=== PATIENT | male | born 1990 | race Caucasian/White ===

== ENCOUNTER 2018-07-30 18:53 | Inpatient (IN) | payer MEDICAID ==
[~2018-07-30] VITALS: Ht 170.2 cm; Wt 79.2 kg
[2018-07-30] MEDS ORDERED: ONDANSETRON 2MG/ML, 2ML ONE (19:15)
[2018-07-30] MEDS ORDERED: MORPHINE SULFATE 4 MG/ML, 1ML ONE (19:15)
[2018-07-30] MEDS ORDERED: MORPHINE SULFATE 4 MG/ML, 1ML IVPush PRN (19:30)
[2018-07-30] MEDS ORDERED: ONDANSETRON 2MG/ML, 2ML IVPush ONE (19:30)
[2018-07-30] MEDS ORDERED: PLEASE ENTER HEIGHT AND WEIGHT MC SCH (19:30)
[2018-07-30] MEDS ORDERED: SODIUM CHLORIDE FLUSH 10ML SYR IVF ONE (19:30)
[2018-07-30 19:32] LABS: BASOPHILS # (AUTO) 0.04 x10^3/uL (0-0.1); BASOPHILS % (AUTO) 0 % (0-1); EOSINOPHILS % (AUTO) 3 % (1-7); LYMPHOCYTES # (AUTO) 1.25 x10^3/uL (1-3.4); LYMPHOCYTES % (AUTO) 13 % (22-44); MD NO; MEAN CORPUSCULAR HEMOGLOBIN 30.8 pg (27.5-34.5); MEAN CORPUSCULAR HGB CONC 33.7 g/dL (33.2-36.2); MEAN CORPUSCULAR VOLUME 91.4 fL (81-97); MEAN PLATELET VOLUME 8.6 fL (7.4-10.4); MONOCYTES # (AUTO) 0.46 x10^3/uL (0.2-0.8); MONOCYTES % (AUTO) 5 % (2-9); NEUTROPHILS # (AUTO) 7.49 x10^3/uL (1.8-6.8); NEUTROPHILS % (AUTO) 79 % (42-75); PLATELET COUNT 336 x10^3/uL (130-400); RED BLOOD COUNT 4.09 x10^6/uL (4.38-5.82)
[2018-07-30] MEDS ORDERED: LOMOTIL (19:32)
[2018-07-30] MEDS ORDERED: DAPTOMYCIN (19:32)
[2018-07-30] MEDS ORDERED: COUMADIN (19:32)
[2018-07-30] MEDS ORDERED: GABAPENTIN (19:32)
[2018-07-30 19:44] LABS: ALBUMIN 3.5 g/dL (3.4-5.0); ANION GAP 12 mmol/L (5-15); CALCIUM 9.1 mg/dL (8.5-10.1); CHLORIDE 103 mmol/L (98-107)
[2018-07-30 19:47] LABS: ALANINE AMINOTRANSFERASE 114 U/L (12-78); ALKALINE PHOSPHATASE 375 U/L (45-117); BILIRUBIN,TOTAL 0.5 mg/dL (0.2-1.0); CREATININE 1.99 mg/dL (0.7-1.3); TOTAL PROTEIN 9.1 g/dL (6.4-8.2)
[2018-07-30] MEDS ORDERED: VANCOMYCIN PER PHARMACY MC PRN ×2 (22:00→23:30)
[2018-07-30] MEDS ORDERED: CEFAZOLIN PMX 1GM/50ML 50 ML IV ONE (22:00)
[2018-07-30] MEDS ORDERED: VANCOMYCIN 1,200 MG in SODIUM CHLORIDE 0.9% 250 ML IV ONE (22:30)
[2018-07-30] MEDS ORDERED: ONDANSETRON 2MG/ML, 2ML IVPush PRN (23:30)
[2018-07-30] MEDS ORDERED: KETOROLAC 30 MG/1 ML IV PRN (23:30)
[2018-07-30] MEDS ORDERED: hydrALAzine 20 MG/ML, 1ML IVPush PRN (23:30)
[2018-07-30] MEDS ORDERED: PHARMACY MAY ADJ FOR RENAL FX MC PRN (23:30)
[2018-07-30 23:36] VITALS: BP 103/71
[2018-07-31] MEDS: ONDANSETRON 2MG/ML, 2ML IVPush PRN ×2 (00:25→09:25)
[2018-07-31] MEDS: ENOXAPARIN 40 MG/0.4 ML SQ SCH (00:25)
[2018-07-31] MEDS ORDERED: CEFAZOLIN PMX 1GM/50ML 50 ML IV SCH ×2 (01:30→10:00)
[2018-07-31 01:34] VITALS: BP 98/65
[2018-07-31] MEDS: morphine SULFATE 10 MG/ML, 1ML IVPush PRN ×4 (02:13→14:39)
[2018-07-31] MEDS ORDERED: PHARMACOKINETIC MONITORING MC PRN (04:30)
[2018-07-31] MEDS ORDERED: PHARMACOKINETIC CONSULTATION MC ONE (04:30)
[2018-07-31] MEDS ORDERED: MORPHINE SULFATE 4 MG/ML, 1ML ONE (05:17)
[2018-07-31 06:11] LABS: MICROSCOPIC AUTO
[2018-07-31 06:16] LABS: CULTURE INDICATED? NO
[2018-07-31 08:54] LABS: BASOPHILS # (AUTO) 0.02 x10^3/uL (0-0.1); BASOPHILS % (AUTO) 0 % (0-1); EOSINOPHILS # (AUTO) 0.67 x10^3/uL (0-0.4); EOSINOPHILS % (AUTO) 9 % (1-7); LYMPHOCYTES # (AUTO) 1.38 x10^3/uL (1-3.4); LYMPHOCYTES % (AUTO) 19 % (22-44); MD NO; MEAN CORPUSCULAR HGB CONC 33.8 g/dL (33.2-36.2); MEAN CORPUSCULAR VOLUME 91.5 fL (81-97); MEAN PLATELET VOLUME 8.6 fL (7.4-10.4); MONOCYTES # (AUTO) 0.48 x10^3/uL (0.2-0.8); MONOCYTES % (AUTO) 6 % (2-9); NEUTROPHILS # (AUTO) 4.92 x10^3/uL (1.8-6.8); NEUTROPHILS % (AUTO) 66 % (42-75); PLATELET COUNT 295 x10^3/uL (130-400); RED BLOOD COUNT 3.89 x10^6/uL (4.38-5.82); RED CELL DISTRIBUTION WIDTH 15.2 % (9.4-14.8)
[2018-07-31 08:59] LABS: ANION GAP 10 mmol/L (5-15); CALCIUM 8.5 mg/dL (8.5-10.1); CHLORIDE 104 mmol/L (98-107); CREATININE 2.03 mg/dL (0.7-1.3)
[2018-07-31 09:23] VITALS: BP 101/68
[2018-07-31] MEDS: CEFTRIAXONE PMX 1GM/50ML 50 ML IV SCH (11:32)
[2018-07-31 14:10] VITALS: BP 104/69
[2018-07-31] MEDS ORDERED: VANCOMYCIN 1,400 MG in SODIUM CHLORIDE 0.9% 250 ML IV SCH (15:00)
[2018-07-31] MEDS ORDERED: AMIT50TA PO (15:07)
[2018-07-31] MEDS ORDERED: ARIP10TA33 PO (15:11)
[2018-07-31] MEDS ORDERED: BUSP5TAB2 PO (15:12)
[2018-07-31] MEDS ORDERED: CHOL4PAC2 PO (15:14)
[2018-07-31] MEDS ORDERED: DIPH1TAB6 PO (15:15)
[2018-07-31] MEDS ORDERED: FLUO40CA2 PO (15:16)
[2018-07-31] MEDS ORDERED: GABA-827 PO (15:17)
[2018-07-31] MEDS ORDERED: TRAZ50TA66 PO (15:19)
[2018-07-31] MEDS ORDERED: ERGO500017 PO (15:20)
[2018-07-31] MEDS ORDERED: WARF6TAB PO (15:21)
[2018-07-31] MEDS ORDERED: TPN PER PHARMACY MC PRN (16:00)
[2018-07-31] MEDS ORDERED: ERGOCALCIFEROL 50,000 UNIT CAPSULE PO SCH (16:00)
[2018-07-31 17:10] LABS: INTERNATIONAL NORMALIZED RATIO 1.06 (0.93-1.1); PROTHROMBIN TIME 11.2 Seconds (9.6-11.5)
[2018-07-31] MEDS: BUSPIRONE 5 MG TABLET PO SCH ×2 (17:43→22:02)
[2018-07-31] MEDS: GABAPENTIN 400 MG CAPSULE PO SCH ×2 (17:44→22:02)
[2018-07-31] MEDS: DIPHENOXYLATE/ATROPINE TABLET PO SCH ×2 (17:44→22:03)
[2018-07-31] MEDS: WARFARIN 3 MG TABLET PO-COUM SCH (17:45)
[2018-07-31 19:16] VITALS: BP 94/60
[2018-07-31] MEDS: INSULIN LISPRO 100 UNITS/ML, PEN SQ-INSULIN SCH (21:00)
[2018-07-31] MEDS: TRAZODONE 50MG TABLET PO SCH (22:02)
[2018-07-31] MEDS: AMITRIPTYLINE 50 MG TABLET PO SCH (22:02)
[2018-07-31] MEDS: CHOLESTYRAMINE LIGHT 4GM PACKET PO SCH (22:03)
[2018-07-31 22:48] VITALS: BP 99/66
[2018-08-01 01:38] VITALS: BP 102/69
[2018-08-01] MEDS ORDERED: SODIUM CHLORIDE 0.9% 1,000 ML IV ONE (02:30)
[2018-08-01 05:28] LABS: INTERNATIONAL NORMALIZED RATIO 1.09 (0.93-1.1); PROTHROMBIN TIME 11.5 Seconds (9.6-11.5)
[2018-08-01 05:30] LABS: ALBUMIN 3.4 g/dL (3.4-5.0); ANION GAP 7 mmol/L (5-15); CALCIUM 8.9 mg/dL (8.5-10.1); CHLORIDE 108 mmol/L (98-107)
[2018-08-01 05:33] LABS: BASOPHILS # (AUTO) 0.03 x10^3/uL (0-0.1); BASOPHILS % (AUTO) 1 % (0-1); EOSINOPHILS # (AUTO) 0.67 x10^3/uL (0-0.4); EOSINOPHILS % (AUTO) 11 % (1-7); LYMPHOCYTES # (AUTO) 1.24 x10^3/uL (1-3.4); LYMPHOCYTES % (AUTO) 20 % (22-44); MD NO; MEAN CORPUSCULAR HEMOGLOBIN 31.2 pg (27.5-34.5); MEAN CORPUSCULAR HGB CONC 34.2 g/dL (33.2-36.2); MEAN CORPUSCULAR VOLUME 91.3 fL (81-97); MEAN PLATELET VOLUME 8.8 fL (7.4-10.4); MONOCYTES # (AUTO) 0.33 x10^3/uL (0.2-0.8); MONOCYTES % (AUTO) 5 % (2-9); NEUTROPHILS # (AUTO) 3.86 x10^3/uL (1.8-6.8); NEUTROPHILS % (AUTO) 63 % (42-75); PLATELET COUNT 290 x10^3/uL (130-400); RED BLOOD COUNT 3.91 x10^6/uL (4.38-5.82); RED CELL DISTRIBUTION WIDTH 15.4 % (9.4-14.8)
[2018-08-01 05:36] LABS: ALANINE AMINOTRANSFERASE 177 U/L (12-78); ALKALINE PHOSPHATASE 361 U/L (45-117); BILIRUBIN,TOTAL 0.7 mg/dL (0.2-1.0); PREALBUMIN 42.6 mg/dL (20.0-40.0); TOTAL PROTEIN 8.2 g/dL (6.4-8.2); TRIGLYCERIDES 241 mg/dL (50-200)
[2018-08-01] MEDS: INSULIN LISPRO 100 UNITS/ML, PEN SQ-INSULIN SCH ×4 (07:00→21:00)
[2018-08-01 07:09] VITALS: BP 103/65
[2018-08-01] MEDS: ENOXAPARIN 40 MG/0.4 ML SQ SCH (08:00)
[2018-08-01] MEDS: ARIPIPRAZOLE 10 MG TABLET PO SCH (09:24)
[2018-08-01] MEDS: FLUOXETINE HCL 20 MG CAPSULE PO SCH (09:24)
[2018-08-01] MEDS: DIPHENOXYLATE/ATROPINE TABLET PO SCH ×3 (09:24→20:08)
[2018-08-01] MEDS: GABAPENTIN 400 MG CAPSULE PO SCH ×3 (09:24→20:08)
[2018-08-01] MEDS: BUSPIRONE 5 MG TABLET PO SCH ×3 (09:24→20:08)
[2018-08-01] MEDS: CHOLESTYRAMINE LIGHT 4GM PACKET PO SCH ×2 (09:25→20:08)
[2018-08-01] MEDS: CEFTRIAXONE PMX 1GM/50ML 50 ML IV SCH (09:25)
[2018-08-01] MEDS ORDERED: DEXTROSE 5% 1,000 ML IV SCH ×2 (11:30→17:00)
[2018-08-01 14:07] VITALS: BP 100/68
[2018-08-01] MEDS: MORPHINE SULFATE 4 MG/ML, 1ML IVPush PRN ×2 (16:03→20:08)
[2018-08-01] MEDS ORDERED: DEXTROSE 10% 500 ML IV PRN (17:00)
[2018-08-01] MEDS ORDERED: SMOF TPN IV SCH (17:00)
[2018-08-01] MEDS ORDERED: DEXTROSE 50%, 50ML SYRINGE IVPush PRN (17:00)
[2018-08-01] MEDS ORDERED: [UNRECOGNIZED DRUG - OTHER] IV SCH (17:00)
[2018-08-01] MEDS ORDERED: FAT EMUL IV SCH (17:00)
[2018-08-01] MEDS ORDERED: FILTER, DISP 1.2 MICRON FOR TPN/PVN IV PRN (17:00)
[2018-08-01] MEDS ORDERED: DEXTROSE 70% IV SCH (17:00)
[2018-08-01] MEDS ORDERED: AMINO ACID 10% IV SCH (17:00)
[2018-08-01] MEDS: WARFARIN 3 MG TABLET PO-COUM SCH (17:38)
[2018-08-01 19:56] VITALS: BP 97/63
[2018-08-01] MEDS: AMITRIPTYLINE 50 MG TABLET PO SCH (20:08)
[2018-08-01] MEDS: TRAZODONE 50MG TABLET PO SCH (20:08)
[2018-08-01] MEDS: INSULIN REGULAR MEDIUM DOSE Q6H X 48HRS SQ-INSULIN SCH (21:00)
[2018-08-02 01:08] VITALS: BP 105/71
[2018-08-02] MEDS: INSULIN REGULAR MEDIUM DOSE Q6H X 48HRS SQ-INSULIN SCH ×2 (03:00→08:33)
[2018-08-02] MEDS: MORPHINE SULFATE 4 MG/ML, 1ML IVPush PRN ×2 (03:23→08:34)
[2018-08-02 05:30] LABS: INTERNATIONAL NORMALIZED RATIO 1.29 (0.93-1.1); PROTHROMBIN TIME 13.5 Seconds (9.6-11.5)
[2018-08-02 05:35] LABS: CHLORIDE 105 mmol/L (98-107); CREATININE 1.79 mg/dL (0.7-1.3)
[2018-08-02 05:38] LABS: CALCIUM 8.4 mg/dL (8.5-10.1)
[2018-08-02 06:18] LABS: ANION GAP 13 mmol/L (5-15)
[2018-08-02 06:47] VITALS: BP 111/75
[2018-08-02] MEDS: INSULIN LISPRO 100 UNITS/ML, PEN SQ-INSULIN SCH (07:00)
[2018-08-02] MEDS: ENOXAPARIN 40 MG/0.4 ML SQ SCH (08:00)
[2018-08-02] MEDS: BUSPIRONE 5 MG TABLET PO SCH (08:34)
[2018-08-02] MEDS: CHOLESTYRAMINE LIGHT 4GM PACKET PO SCH (08:34)
[2018-08-02] MEDS: FLUOXETINE HCL 20 MG CAPSULE PO SCH (08:35)
[2018-08-02] MEDS: DIPHENOXYLATE/ATROPINE TABLET PO SCH (08:35)
[2018-08-02] MEDS: GABAPENTIN 400 MG CAPSULE PO SCH (08:35)
[2018-08-02] MEDS: ARIPIPRAZOLE 10 MG TABLET PO SCH (08:35)
[2018-08-02] MEDS: CEFTRIAXONE PMX 1GM/50ML 50 ML IV SCH (09:30)
[2018-08-02] MEDS ORDERED: AMINO ACID 10% IV SCH (17:00)
[2018-08-02] MEDS ORDERED: [UNRECOGNIZED DRUG - OTHER] IV SCH (17:00)
[2018-08-02] MEDS ORDERED: FAT EMUL IV SCH (17:00)
[2018-08-02] MEDS ORDERED: DEXTROSE 70% IV SCH (17:00)
[2018-08-02] MEDS ORDERED: SMOF TPN IV SCH (17:00)
[2018-08-02] MEDS ORDERED: FILTER, DISP 1.2 MICRON FOR TPN/PVN IV PRN (17:00)
[2018-08-04] MEDS ORDERED: INSULIN REGULAR MEDIUM DOSE QDAY SQ-INSULIN SCH (09:00)
== END 2018-08-02 12:00 | disposition home or self-care (01) | DRG 393 ==
LOC: ED 22:14 → EDIP 22:27 → 3NE 22:56
PROVIDERS: ADMIT Internal Medicine; ATTEND Internal Medicine
DX: K94.03 Colostomy malfunction (principal); N17.0 Acute kidney failure with tubular necrosis; E43 Unspecified severe protein-calorie malnutrition; K63.2 Fistula of intestine; C41.9 Malignant neoplasm of bone and articular cartilage, unspecified; L03.311 Cellulitis of abdominal wall; L89.91 Pressure ulcer of unspecified site, stage 1; N18.3 Chronic kidney disease, stage 3 (moderate); Z83.3 Family history of diabetes mellitus; Z91.19 Patient's noncompliance with other medical treatment and regimen; Z85.830 Personal history of malignant neoplasm of bone; Z68.27 Body mass index [BMI] 27.0-27.9, adult; Z88.8 Allergy status to other drugs, medicaments and biological substances; Z91.048 Other nonmedicinal substance allergy status
CPT/HCPCS: 36415; 99285; J3490; 71045; 74176; 80048; 80053; 81001; 82962; 83690; 83735; 84100; 84134; 84478; 85025; 85610; 87040; 87081; 96374; 96375; G0378; J0610; J0690; J0696; J1650; J1885; J2405; J3370; J7070; J2270; J3420; J7030; J7050

== ENCOUNTER 2018-08-09 03:35 | Emergency (ER) | payer MEDICAID ==
[~2018-08-09 03:35] MED LIST: AMIT50TA PO; ARIP10TA33 PO; BUSP5TAB2 PO; CHOL4PAC2 PO; COUMADIN; DAPTOMYCIN; DIPH1TAB6 PO; ERGO500017 PO; FLUO40CA2 PO; GABA-827 PO; GABAPENTIN; LOMOTIL; TRAZ50TA66 PO; WARF6TAB PO
[2018-08-09] MEDS ORDERED: OXYcodone 5 MG/5 ML ORAL.SOL UDC PO ONE (04:00)
[2018-08-09] MEDS ORDERED: OXYcodone 5 MG/5 ML ORAL.SOL UDC ONE (04:03)
[2018-08-09 05:04] VITALS: BP 117/53
== END 2018-08-09 05:10 | disposition home or self-care (01) ==
LOC: ED 04:22
DX: M25.552 Pain in left hip (principal); M25.551 Pain in right hip; Z72.9 Problem related to lifestyle, unspecified; Z63.8 Other specified problems related to primary support group; Z75.9 Unspecified problem related to medical facilities and other health care; Z88.1 Allergy status to other antibiotic agents; Z88.8 Allergy status to other drugs, medicaments and biological substances
CPT/HCPCS: 72170; 99283

== ENCOUNTER 2018-08-24 09:37 | Emergency (ER) | payer MEDICAID ==
[2018-08-24 09:50] VITALS: BP 111/60
[2018-08-24] MEDS ORDERED: OXYcodone/APAP 10/325MG TABLET PO ONE (11:00)
[2018-08-24] MEDS ORDERED: OXYcodone/APAP 10/325MG TABLET ONE (11:10)
== END 2018-08-24 14:38 | disposition home or self-care (01) ==
LOC: ED 10:58
DX: Z93.3 Colostomy status (principal); Z89.612 Acquired absence of left leg above knee; Z89.611 Acquired absence of right leg above knee; N18.9 Chronic kidney disease, unspecified
CPT/HCPCS: 99283

== ENCOUNTER 2018-09-17 12:10 | Inpatient (IN) | payer MEDICAID ==
[~2018-09-17] VITALS: Ht 134.6 cm; Wt 73.8 kg
--- NOTE | 2018-09-17 12:23 | NUR ---
TASK RN: [facility] FROM HOME. PT W/ HX [id number], CULLEN AMPUTATION, COLOSTOMY. PT C/O INCREASED WEAKNESS AND DIZZYNESS, ABD PAIN X 3 DAYS. PT STATES HE HAS BEEN OUT OF HIS OSTOMY SUPPLIES FOR 1 WEEK AND HAS BEEN USING SUCTION AT HOME TO COLLECT OUTPUT. PT TRANS TO ED PREET, BP, SP02 MONITORING PLACED. BP 89/50 HR 114. WALL SUCTION SET UP AND PT MANAGING OSTOMOY DRAINAGE INDEPENDENTLY. CALL LIGHT W/I REACH SBAR RPT GIVEN TO JENNIFER ROCA
[2018-09-17] MEDS ORDERED: FENTANYL PF 100 MCG/2ML ONE (12:39)
[2018-09-17] MEDS ORDERED: PROMETHAZINE 25 MG/ML, 1ML ONE (12:39)
[2018-09-17] MEDS: SODIUM CHLORIDE 0.9% 1,000ML IVBOLUS ONE ×2 (12:48→13:00)
--- NOTE | 2018-09-17 12:58 | NUR ---
PT HAS IVF STARTED IMMEDIATELY. PT REPORTS SEVERE DEHYDRATION AND LACK OF PO INTAKE. PT HAS 1 L OF NS GOING IN WITH GRAVITY BAG.
[2018-09-17] MEDS ORDERED: FENTANYL PF 100 MCG/2ML IV ONE (13:00)
[2018-09-17] MEDS ORDERED: PROMETHAZINE 25 MG/ML, 1ML IM ONE (13:00)
--- NOTE | 2018-09-17 13:02 | NUR ---
PT MEDICATED PER EMAR.
[2018-09-17 13:36] LABS: BASOPHILS # (AUTO) 0.01 x10^3/uL (0-0.1); BASOPHILS % (AUTO) 0 % (0-1); EOSINOPHILS # (AUTO) 0.15 x10^3/uL (0-0.4); EOSINOPHILS % (AUTO) 2 % (1-7); LYMPHOCYTES # (AUTO) 0.77 x10^3/uL (1-3.4); LYMPHOCYTES % (AUTO) 9 % (22-44); MD NO; MEAN CORPUSCULAR HEMOGLOBIN 31.4 pg (27.5-34.5); MEAN CORPUSCULAR HGB CONC 34.7 g/dL (33.2-36.2); MEAN CORPUSCULAR VOLUME 90.5 fL (81-97); MEAN PLATELET VOLUME 9.6 fL (7.4-10.4); MONOCYTES # (AUTO) 0.52 x10^3/uL (0.2-0.8); MONOCYTES % (AUTO) 6 % (2-9); NEUTROPHILS # (AUTO) 7.23 x10^3/uL (1.8-6.8); NEUTROPHILS % (AUTO) 83 % (42-75); PLATELET COUNT 181 x10^3/uL (130-400); RED BLOOD COUNT 5.01 x10^6/uL (4.38-5.82); RED CELL DISTRIBUTION WIDTH 13.3 % (9.4-14.8)
[2018-09-17 13:49] LABS: ALANINE AMINOTRANSFERASE 227 U/L (12-78); ALBUMIN 3.3 g/dL (3.4-5.0); ANION GAP 14 mmol/L (5-15); CALCIUM 9.2 mg/dL (8.5-10.1); CHLORIDE 98 mmol/L (98-107); CREATININE 3.09 mg/dL (0.7-1.3)
[2018-09-17 13:51] LABS: ALKALINE PHOSPHATASE 343 U/L (45-117); BILIRUBIN,TOTAL 1.2 mg/dL (0.2-1.0); TOTAL PROTEIN 8.4 g/dL (6.4-8.2)
[2018-09-17] MEDS ORDERED: METRONIDAZOLE PMX 500MG/100ML 100 ML IV ONE (15:00)
[2018-09-17] MEDS ORDERED: CEFTRIAXONE PMX 1GM/50ML 50 ML IV ONE (15:00)
[2018-09-17] MEDS ORDERED: METRONIDAZOLE PMX 500MG/100ML 100 ML ONE (15:04)
[2018-09-17] MEDS ORDERED: CEFTRIAXONE PMX 1GM/50ML 50 ML ONE (15:05)
--- NOTE | 2018-09-17 15:35 | NUR ---
MD MOURA TO BEDSIDE AT THIS TIME.
[2018-09-17] MEDS ORDERED: SODIUM CHLORIDE 0.9% 1,000ML IVBOLUS ONE ×2 (16:00)
--- NOTE | 2018-09-17 16:01 | NUR ---
CVAD dressing change completed per policy pt tolerated well. NADs changed as well per policy.
[2018-09-17] MEDS ORDERED: PROMETHAZINE 25 MG/ML, 1ML IM PRN (17:30)
[2018-09-17] MEDS ORDERED: TPN PER PHARMACY MC PRN (17:30)
[2018-09-17] MEDS ORDERED: hydrALAzine 20 MG/ML, 1ML IVPush PRN (17:30)
[2018-09-17 17:35] LABS: FREE T4 (FREE THYROXINE) 1.48 ng/dL (0.76-1.46); THYROID STIMULATING HORMONE 0.473 mIU/L (0.358-3.740)
[2018-09-17 17:41] LABS: HEMOGLOBIN A1C 4.5 % (4.2-6.3)
[2018-09-17] MEDS: SODIUM CHLORIDE 0.9% 1,000 ML IV SCH (18:00)
[2018-09-17 20:00] VITALS: BP 97/62
[2018-09-17] MEDS: METRONIDAZOLE PMX 500MG/100ML 100 ML IV SCH (21:51)
[2018-09-17] MEDS: morphine SULFATE 10 MG/ML, 1ML IVPush PRN (22:18)
[2018-09-18 00:39] LABS: MICROSCOPIC AUTO
[2018-09-18 00:40] LABS: CULTURE INDICATED? YES
[2018-09-18 03:26] LABS: CLOSTRIDIUM DIFFICILE ANTIGEN NEGATIVE; CLOSTRIDIUM DIFFICILE TOXIN NEGATIVE (Negative)
[2018-09-18 03:32] VITALS: BP 93/60
[2018-09-18] MEDS: SODIUM CHLORIDE 0.9% 1,000 ML IV SCH ×2 (03:35→09:40)
[2018-09-18] MEDS ORDERED: CATHFLO-ALTEPLASE 2 MG/2 ML CATHFLUSH ONE (05:00)
[2018-09-18] MEDS: METRONIDAZOLE PMX 500MG/100ML 100 ML IV SCH ×3 (05:45→21:41)
[2018-09-18] MEDS: morphine SULFATE 10 MG/ML, 1ML IVPush PRN ×4 (05:59→21:40)
[2018-09-18 07:12] VITALS: BP 89/59
[2018-09-18 09:09] LABS: BASOPHILS # (AUTO) 0.03 x10^3/uL (0-0.1); BASOPHILS % (AUTO) 1 % (0-1); EOSINOPHILS # (AUTO) 0.14 x10^3/uL (0-0.4); EOSINOPHILS % (AUTO) 3 % (1-7); LYMPHOCYTES # (AUTO) 0.53 x10^3/uL (1-3.4); LYMPHOCYTES % (AUTO) 10 % (22-44); MD NO; MEAN CORPUSCULAR HEMOGLOBIN 30.7 pg (27.5-34.5); MEAN CORPUSCULAR HGB CONC 33.7 g/dL (33.2-36.2); MEAN CORPUSCULAR VOLUME 91.1 fL (81-97); MEAN PLATELET VOLUME 9.2 fL (7.4-10.4); MONOCYTES # (AUTO) 0.31 x10^3/uL (0.2-0.8); MONOCYTES % (AUTO) 6 % (2-9); NEUTROPHILS # (AUTO) 4.49 x10^3/uL (1.8-6.8); NEUTROPHILS % (AUTO) 82 % (42-75); PLATELET COUNT 146 x10^3/uL (130-400); RED BLOOD COUNT 4.11 x10^6/uL (4.38-5.82); RED CELL DISTRIBUTION WIDTH 13.5 % (9.4-14.8)
[2018-09-18 09:20] LABS: ALANINE AMINOTRANSFERASE 169 U/L (12-78); ALBUMIN 2.8 g/dL (3.4-5.0); CALCIUM 8.7 mg/dL (8.5-10.1)
[2018-09-18 09:24] LABS: ALKALINE PHOSPHATASE 246 U/L (45-117); ANION GAP 12 mmol/L (5-15); CHLORIDE 111 mmol/L (98-107); CHOL/HDL RATIO 4.2; CHOLESTEROL, TOTAL 121 mg/dL (140-239); HDL CHOL % 24 % (26-37); HDL CHOLESTEROL (DIRECT) 29 mg/dL (40-60); LDL CHOLESTEROL,CALCULATED 58 mg/dL (54-169); PREALBUMIN 23.6 mg/dL (20.0-40.0); TOTAL PROTEIN 6.9 g/dL (6.4-8.2); TRIGLYCERIDES 170 mg/dL (50-200); VLDL CHOLESTEROL 34 mg/dL (0-25)
[2018-09-18] MEDS ORDERED: PHARMACOKINETIC CONSULTATION MC ONE (10:00)
[2018-09-18] MEDS ORDERED: VANCOMYCIN PMX 1GM/200ML 200 ML IV ONE (10:00)
[2018-09-18] MEDS ORDERED: PHARMACOKINETIC MONITORING MC PRN (10:00)
[2018-09-18] MEDS ORDERED: POTASSIUM CHLORIDE 40 MEQ in SODIUM CHLORIDE 0.9% 500 ML IV ONE (10:00)
[2018-09-18] MEDS ORDERED: VANCOMYCIN PER PHARMACY MC PRN (10:00)
[2018-09-18] MEDS ORDERED: VANCOMYCIN 1,200 MG in SODIUM CHLORIDE 0.9% 250 ML IV ONE (10:30)
[2018-09-18 12:02] VITALS: BP 93/62
[2018-09-18] MEDS: CEFTRIAXONE PMX 1GM/50ML 50 ML IV SCH (15:19)
[2018-09-18] MEDS ORDERED: FILTER, DISP 1.2 MICRON FOR TPN/PVN IV PRN (17:00)
[2018-09-18] MEDS ORDERED: [UNRECOGNIZED DRUG - OTHER] IV SCH (17:00)
[2018-09-18] MEDS ORDERED: DEXTROSE 50%, 50ML SYRINGE IVPush PRN (17:00)
[2018-09-18] MEDS ORDERED: AMINO ACID 10% IV SCH (17:00)
[2018-09-18] MEDS ORDERED: DEXTROSE 10% 500 ML IV PRN (17:00)
[2018-09-18] MEDS ORDERED: FAT EMUL IV SCH (17:00)
[2018-09-18] MEDS ORDERED: SMOF TPN IV SCH (17:00)
[2018-09-18] MEDS ORDERED: DEXTROSE 70% IV SCH (17:00)
[2018-09-18] MEDS: INSULIN REGULAR LOW DOSE Q6H X 48HRS SQ-INSULIN SCH (19:57)
[2018-09-18 20:00] VITALS: BP 104/67
[2018-09-19] MEDS: INSULIN REGULAR LOW DOSE Q6H X 48HRS SQ-INSULIN SCH ×4 (02:43→19:59)
[2018-09-19 02:49] VITALS: BP 96/61
[2018-09-19] MEDS: METRONIDAZOLE PMX 500MG/100ML 100 ML IV SCH ×3 (05:24→22:09)
[2018-09-19 05:36] LABS: ANION GAP 6 mmol/L (5-15); CALCIUM 7.7 mg/dL (8.5-10.1); CHLORIDE 105 mmol/L (98-107); CREATININE 1.71 mg/dL (0.7-1.3)
[2018-09-19] MEDS: morphine SULFATE 10 MG/ML, 1ML IVPush PRN ×3 (05:39→22:09)
[2018-09-19] MEDS ORDERED: MAGNESIUM SULFATE PMX 2GM/50ML 50 ML IV ONE (10:00)
[2018-09-19] MEDS ORDERED: VANCOMYCIN 1,400 MG in SODIUM CHLORIDE 0.9% 250 ML IV ONE (12:00)
[2018-09-19 13:00] VITALS: BP 93/53
[2018-09-19] MEDS ORDERED: [UNRECOGNIZED DRUG - OTHER] IV SCH (17:00)
[2018-09-19] MEDS ORDERED: DEXTROSE 70% IV SCH ×3 (17:00)
[2018-09-19] MEDS ORDERED: FILTER, DISP 1.2 MICRON FOR TPN/PVN IV PRN (17:00)
[2018-09-19] MEDS ORDERED: FAT EMUL IV SCH ×3 (17:00)
[2018-09-19] MEDS ORDERED: PVN PER PHARMACY MC SCH (17:00)
[2018-09-19] MEDS ORDERED: AMINO ACID 10% IV SCH ×3 (17:00)
[2018-09-19] MEDS ORDERED: [UNRECOGNIZED DRUG - OTHER] IV SCH ×2 (17:00)
[2018-09-19] MEDS ORDERED: SMOF TPN IV SCH ×3 (17:00)
[2018-09-19] MEDS: CEFTRIAXONE PMX 1GM/50ML 50 ML IV SCH (17:46)
[2018-09-19 19:39] VITALS: BP 99/61
[2018-09-20 01:36] VITALS: BP 95/61
[2018-09-20] MEDS: morphine SULFATE 10 MG/ML, 1ML IVPush PRN ×3 (01:49→12:58)
[2018-09-20] MEDS: INSULIN REGULAR LOW DOSE Q6H X 48HRS SQ-INSULIN SCH ×3 (02:12→15:00)
[2018-09-20] MEDS: METRONIDAZOLE PMX 500MG/100ML 100 ML IV SCH ×3 (05:39→22:27)
[2018-09-20 06:03] LABS: BASOPHILS # (AUTO) 0.02 x10^3/uL (0-0.1); BASOPHILS % (AUTO) 0 % (0-1); EOSINOPHILS # (AUTO) 0.17 x10^3/uL (0-0.4); EOSINOPHILS % (AUTO) 3 % (1-7); LYMPHOCYTES # (AUTO) 0.99 x10^3/uL (1-3.4); LYMPHOCYTES % (AUTO) 19 % (22-44); MD NO; MEAN CORPUSCULAR HEMOGLOBIN 31.2 pg (27.5-34.5); MEAN CORPUSCULAR HGB CONC 34.3 g/dL (33.2-36.2); MEAN PLATELET VOLUME 9.1 fL (7.4-10.4); MONOCYTES # (AUTO) 0.42 x10^3/uL (0.2-0.8); MONOCYTES % (AUTO) 8 % (2-9); NEUTROPHILS # (AUTO) 3.57 x10^3/uL (1.8-6.8); NEUTROPHILS % (AUTO) 69 % (42-75); PLATELET COUNT 159 x10^3/uL (130-400); RED BLOOD COUNT 3.94 x10^6/uL (4.38-5.82); RED CELL DISTRIBUTION WIDTH 13.5 % (9.4-14.8)
[2018-09-20 06:07] LABS: ANION GAP 8 mmol/L (5-15); CHLORIDE 103 mmol/L (98-107)
[2018-09-20 06:09] LABS: CREATININE 1.49 mg/dL (0.7-1.3)
[2018-09-20 06:12] LABS: VANCOMYCIN,RANDOM 37.6 mcg/mL
[2018-09-20 07:27] VITALS: BP 95/60
[2018-09-20 13:00] VITALS: BP 110/65
[2018-09-20] MEDS: CEFTRIAXONE PMX 1GM/50ML 50 ML IV SCH (16:39)
[2018-09-20] MEDS ORDERED: [UNRECOGNIZED DRUG - OTHER] IV SCH (17:00)
[2018-09-20] MEDS ORDERED: AMINO ACID 10% IV SCH (17:00)
[2018-09-20] MEDS ORDERED: FAT EMUL IV SCH (17:00)
[2018-09-20] MEDS ORDERED: SMOF TPN IV SCH (17:00)
[2018-09-20] MEDS ORDERED: DEXTROSE 70% IV SCH (17:00)
[2018-09-20 20:00] VITALS: BP 84/53
[2018-09-21 02:00] VITALS: BP 95/60
[2018-09-21] MEDS: morphine SULFATE 10 MG/ML, 1ML IVPush PRN ×4 (02:06→19:31)
[2018-09-21] MEDS: METRONIDAZOLE PMX 500MG/100ML 100 ML IV SCH (05:36)
[2018-09-21 06:39] LABS: ANION GAP 10 mmol/L (5-15); CALCIUM 8.6 mg/dL (8.5-10.1); CHLORIDE 100 mmol/L (98-107); CREATININE 1.51 mg/dL (0.7-1.3)
[2018-09-21 06:42] LABS: VANCOMYCIN,RANDOM 20.7 mcg/mL
[2018-09-21] MEDS: INSULIN REGULAR LOW DOSE QDAY SQ-INSULIN SCH (09:00)
[2018-09-21] MEDS ORDERED: VANCOMYCIN 1,200 MG in SODIUM CHLORIDE 0.9% 250 ML IV SCH (10:00)
[2018-09-21 14:08] LABS: HCT (SEDRATE) 39.9 % (39.2-51.8)
[2018-09-21] MEDS ORDERED: LIDOCAINE-MPF 1%, 5ML ONE (14:25)
[2018-09-21] MEDS: DAPTOMYCIN 450 MG in SODIUM CHLORIDE 0.9% 100 ML IVPB SCH ×2 (14:30→16:15)
[2018-09-21 14:35] LABS: C-REACTIVE PROTEIN, QUANT 3.3 mg/dL (0.02-0.49)
[2018-09-21] MEDS ORDERED: NALOXONE 1 MG/ML, 2ML ONE (14:52)
[2018-09-21] MEDS ORDERED: FENTANYL PF 100 MCG/2ML ONE (14:52)
[2018-09-21] MEDS ORDERED: SMOF TPN IV SCH (17:00)
[2018-09-21] MEDS ORDERED: DEXTROSE 70% IV SCH (17:00)
[2018-09-21] MEDS ORDERED: [UNRECOGNIZED DRUG - OTHER] IV SCH (17:00)
[2018-09-21] MEDS ORDERED: AMINO ACID 10% IV SCH (17:00)
[2018-09-21] MEDS ORDERED: FILTER, DISP 1.2 MICRON FOR TPN/PVN IV PRN (17:00)
[2018-09-21] MEDS ORDERED: FAT EMUL IV SCH (17:00)
[2018-09-21 18:50] VITALS: BP 93/59
[2018-09-21 19:23] VITALS: BP 93/59
[2018-09-22] MEDS: ONDANSETRON 2MG/ML, 2ML IVPush PRN (00:11)
[2018-09-22] MEDS: morphine SULFATE 10 MG/ML, 1ML IVPush PRN ×2 (00:11→15:17)
[2018-09-22 00:21] VITALS: BP 97/60
[2018-09-22 05:58] LABS: BASOPHILS # (AUTO) 0.02 x10^3/uL (0-0.1); BASOPHILS % (AUTO) 0 % (0-1); EOSINOPHILS % (AUTO) 4 % (1-7); LYMPHOCYTES # (AUTO) 1.07 x10^3/uL (1-3.4); LYMPHOCYTES % (AUTO) 21 % (22-44); MD NO; MEAN CORPUSCULAR HEMOGLOBIN 30.9 pg (27.5-34.5); MEAN CORPUSCULAR HGB CONC 33.6 g/dL (33.2-36.2); MEAN CORPUSCULAR VOLUME 91.7 fL (81-97); MEAN PLATELET VOLUME 9.1 fL (7.4-10.4); MONOCYTES % (AUTO) 6 % (2-9); NEUTROPHILS # (AUTO) 3.46 x10^3/uL (1.8-6.8); NEUTROPHILS % (AUTO) 69 % (42-75); PLATELET COUNT 191 x10^3/uL (130-400); RED CELL DISTRIBUTION WIDTH 13.6 % (9.4-14.8)
[2018-09-22 06:08] LABS: CHLORIDE 103 mmol/L (98-107)
[2018-09-22 06:14] LABS: ANION GAP 8 mmol/L (5-15); CALCIUM 8.7 mg/dL (8.5-10.1)
[2018-09-22] MEDS: INSULIN REGULAR LOW DOSE QDAY SQ-INSULIN SCH (09:00)
[2018-09-22] MEDS ORDERED: MORPHINE SULFATE 4 MG/ML, 1ML ONE (10:15)
[2018-09-22] MEDS ORDERED: MAGNESIUM SULFATE PMX 2GM/50ML 50 ML IV ONE (14:30)
[2018-09-22 15:00] VITALS: BP 101/65
[2018-09-22] MEDS ORDERED: FILTER, DISP 1.2 MICRON FOR TPN/PVN IV PRN (17:00)
[2018-09-22] MEDS ORDERED: [UNRECOGNIZED DRUG - OTHER] IV SCH (17:00)
[2018-09-22] MEDS ORDERED: DEXTROSE 70% IV SCH (17:00)
[2018-09-22] MEDS ORDERED: AMINO ACID 10% IV SCH (17:00)
[2018-09-22] MEDS ORDERED: SMOF TPN IV SCH (17:00)
[2018-09-22] MEDS ORDERED: FAT EMUL IV SCH (17:00)
[2018-09-22] MEDS: DAPTOMYCIN 450 MG in SODIUM CHLORIDE 0.9% 100 ML IVPB SCH (17:44)
[2018-09-22 18:53] VITALS: BP 84/53
[2018-09-22 19:31] VITALS: BP 81/53
[2018-09-22 21:00] VITALS: BP 77/44
[2018-09-22] MEDS ORDERED: SODIUM CHLORIDE 0.9%, 500ML IVBOLUS ONE (22:00)
[2018-09-23 02:15] VITALS: BP 78/49
[2018-09-23 02:50] VITALS: BP 82/49
[2018-09-23] MEDS ORDERED: MIDODRINE 5 MG TABLET PO STA (02:54)
[2018-09-23 04:00] VITALS: BP 85/53
[2018-09-23] MEDS ORDERED: SODIUM CHLORIDE 0.9% 1,000ML IVBOLUS ONE (08:30)
[2018-09-23] MEDS: INSULIN REGULAR LOW DOSE QDAY SQ-INSULIN SCH (08:45)
[2018-09-23 13:15] VITALS: BP 110/61
[2018-09-23] MEDS: morphine SULFATE 10 MG/ML, 1ML IVPush PRN ×2 (13:29→21:49)
[2018-09-23] MEDS: DAPTOMYCIN 450 MG in SODIUM CHLORIDE 0.9% 100 ML IVPB SCH (16:49)
[2018-09-23] MEDS ORDERED: [UNRECOGNIZED DRUG - OTHER] IV SCH (17:00)
[2018-09-23] MEDS ORDERED: AMINO ACID 10% IV SCH (17:00)
[2018-09-23] MEDS ORDERED: SMOF TPN IV SCH (17:00)
[2018-09-23] MEDS ORDERED: DEXTROSE 70% IV SCH (17:00)
[2018-09-23] MEDS ORDERED: FAT EMUL IV SCH (17:00)
[2018-09-23 18:43] VITALS: BP 97/62
[2018-09-23 21:39] VITALS: BP 102/66
[2018-09-24 00:28] VITALS: BP 93/56
[2018-09-24 05:08] VITALS: BP 98/60
[2018-09-24] MEDS: morphine SULFATE 10 MG/ML, 1ML IVPush PRN ×3 (05:11→21:44)
[2018-09-24 06:40] VITALS: BP 91/58
[2018-09-24 07:03] LABS: BASOPHILS # (AUTO) 0.02 x10^3/uL (0-0.1); BASOPHILS % (AUTO) 0 % (0-1); EOSINOPHILS # (AUTO) 0.13 x10^3/uL (0-0.4); EOSINOPHILS % (AUTO) 3 % (1-7); LYMPHOCYTES # (AUTO) 0.87 x10^3/uL (1-3.4); LYMPHOCYTES % (AUTO) 18 % (22-44); MD NO; MEAN CORPUSCULAR HEMOGLOBIN 30.7 pg (27.5-34.5); MEAN CORPUSCULAR HGB CONC 33.2 g/dL (33.2-36.2); MEAN CORPUSCULAR VOLUME 92.3 fL (81-97); MEAN PLATELET VOLUME 8.9 fL (7.4-10.4); MONOCYTES # (AUTO) 0.23 x10^3/uL (0.2-0.8); MONOCYTES % (AUTO) 5 % (2-9); NEUTROPHILS # (AUTO) 3.69 x10^3/uL (1.8-6.8); NEUTROPHILS % (AUTO) 75 % (42-75); PLATELET COUNT 166 x10^3/uL (130-400); RED BLOOD COUNT 4.18 x10^6/uL (4.38-5.82); RED CELL DISTRIBUTION WIDTH 13.8 % (9.4-14.8)
[2018-09-24 07:13] LABS: ANION GAP 8 mmol/L (5-15); CALCIUM 8.6 mg/dL (8.5-10.1); CHLORIDE 104 mmol/L (98-107); CREATININE 2.19 mg/dL (0.7-1.3)
[2018-09-24] MEDS ORDERED: MAGNESIUM SULFATE PMX 2GM/50ML 50 ML IV ONE (07:30)
[2018-09-24] MEDS: INSULIN REGULAR LOW DOSE QDAY SQ-INSULIN SCH (08:46)
[2018-09-24] MEDS: DAPTOMYCIN 450 MG in SODIUM CHLORIDE 0.9% 100 ML IVPB SCH (11:32)
[2018-09-24 13:09] VITALS: BP 95/57
[2018-09-24] MEDS ORDERED: AMINO ACID 10% 900 ML, DEXTROSE 70% 420 ML, FAT EMUL/SMOF TPN 225 ML, STERILE WATER 1,3... IV SCH (17:00)
[2018-09-24 19:21] VITALS: BP 101/63
[2018-09-25 03:22] VITALS: BP 97/82
[2018-09-25] MEDS: INSULIN REGULAR LOW DOSE QDAY SQ-INSULIN SCH (09:00)
[2018-09-25] MEDS: morphine SULFATE 10 MG/ML, 1ML IVPush PRN ×2 (12:07→21:04)
[2018-09-25 13:00] VITALS: BP 99/51
[2018-09-25] MEDS ORDERED: AMINO ACID 10% 900 ML, DEXTROSE 70% 420 ML, FAT EMUL/SMOF TPN 225 ML, STERILE WATER 1,3... IV SCH (17:00)
[2018-09-25 19:47] VITALS: BP 104/56
[2018-09-26] MEDS ORDERED: HYDROcodone/APAP 5/325 TABLET ONE (00:51)
[2018-09-26] MEDS: HYDROcodone/APAP 5/325 TABLET PO PRN ×2 (00:57→05:46)
[2018-09-26 01:04] VITALS: BP 94/60
[2018-09-26 06:09] LABS: ANION GAP 10 mmol/L (5-15); CALCIUM 9.4 mg/dL (8.5-10.1); CHLORIDE 94 mmol/L (98-107)
[2018-09-26] MEDS: INSULIN REGULAR LOW DOSE QDAY SQ-INSULIN SCH (09:09)
[2018-09-26] MEDS: DAPTOMYCIN 450 MG in SODIUM CHLORIDE 0.9% 100 ML IVPB SCH ×3 (11:50→15:58)
[2018-09-26 12:12] VITALS: BP 93/62
[2018-09-26] MEDS ORDERED: AMINO ACID 10% 900 ML, DEXTROSE 70% 420 ML, FAT EMUL/SMOF TPN 225 ML, STERILE WATER 1,3... IV SCH (17:00)
[2018-09-26] MEDS ORDERED: SODIUM CHLORIDE 0.9% 500 ML IV ONE (17:30)
[2018-09-27 01:26] VITALS: BP 82/56
[2018-09-27] MEDS: INSULIN REGULAR LOW DOSE QDAY SQ-INSULIN SCH (09:09)
[2018-09-27 13:05] VITALS: BP 120/52
[2018-09-27 13:29] VITALS: BP 83/56
[2018-09-27] MEDS ORDERED: FILTER, DISP 1.2 MICRON FOR TPN/PVN IV PRN (17:00)
[2018-09-27] MEDS ORDERED: AMINO ACID 10% 900 ML, DEXTROSE 70% 420 ML, FAT EMUL/SMOF TPN 225 ML, STERILE WATER 1,3... IV SCH (17:00)
[2018-09-27 21:01] VITALS: BP 93/56
[2018-09-28 01:52] VITALS: BP 80/53
[2018-09-28 07:55] VITALS: BP 90/60
[2018-09-28] MEDS: INSULIN REGULAR LOW DOSE QDAY SQ-INSULIN SCH (08:01)
[2018-09-28] MEDS: HYDROcodone/APAP 5/325 TABLET PO PRN ×2 (12:31→23:18)
[2018-09-28 12:42] VITALS: BP 90/61
[2018-09-28] MEDS: DAPTOMYCIN 450 MG in SODIUM CHLORIDE 0.9% 100 ML IVPB SCH (16:39)
[2018-09-28] MEDS: AMINO ACID 10% 900 ML, DEXTROSE 70% 420 ML, FAT EMUL/SMOF TPN 225 ML, STERILE WATER 1,3... IV SCH (16:54)
[2018-09-28] MEDS ORDERED: AMINO ACID 10% 900 ML, DEXTROSE 70% 420 ML, FAT EMUL/SMOF TPN 225 ML, STERILE WATER 1,3... IV SCH (17:00)
[2018-09-28] MEDS ORDERED: FILTER, DISP 1.2 MICRON FOR TPN/PVN IV PRN (17:00)
[2018-09-28 18:38] VITALS: BP 89/62
[2018-09-28 23:15] VITALS: BP 98/65
[2018-09-29 01:55] VITALS: BP 85/59
[2018-09-29] MEDS: INSULIN REGULAR LOW DOSE QDAY SQ-INSULIN SCH (09:00)
[2018-09-29 12:30] VITALS: BP 92/62
[2018-09-29] MEDS: HYDROcodone/APAP 5/325 TABLET PO PRN ×2 (12:36→21:42)
[2018-09-29] MEDS: AMINO ACID 10% 900 ML, DEXTROSE 70% 420 ML, FAT EMUL/SMOF TPN 225 ML, STERILE WATER 1,3... IV SCH (17:00)
[2018-09-29 19:13] VITALS: BP 90/59
[2018-09-30 01:25] VITALS: BP 81/52
[2018-09-30] MEDS ORDERED: SODIUM CHLORIDE 0.9%, 500ML IVBOLUS ONE (02:30)
[2018-09-30 03:03] VITALS: BP 91/60
[2018-09-30] MEDS: INSULIN REGULAR LOW DOSE QDAY SQ-INSULIN SCH (08:36)
[2018-09-30 14:00] VITALS: BP 88/61
[2018-09-30] MEDS: DAPTOMYCIN 450 MG in SODIUM CHLORIDE 0.9% 100 ML IVPB SCH (15:30)
[2018-09-30] MEDS: HYDROcodone/APAP 5/325 TABLET PO PRN (16:09)
[2018-09-30] MEDS: AMINO ACID 10% 900 ML, DEXTROSE 70% 420 ML, FAT EMUL/SMOF TPN 225 ML, STERILE WATER 1,3... IV SCH (17:00)
[2018-09-30 20:25] VITALS: BP 87/58
[2018-10-01 02:32] VITALS: BP 88/60
[2018-10-01] MEDS: INSULIN REGULAR LOW DOSE QDAY SQ-INSULIN SCH (09:00)
[2018-10-01 12:00] VITALS: BP 95/60
[2018-10-01] MEDS: HYDROcodone/APAP 5/325 TABLET PO PRN (15:41)
[2018-10-01] MEDS: AMINO ACID 10% 900 ML, DEXTROSE 70% 420 ML, FAT EMUL/SMOF TPN 225 ML, STERILE WATER 1,3... IV SCH (17:00)
[2018-10-01 20:02] VITALS: BP 89/59
[2018-10-02] MEDS: INSULIN REGULAR LOW DOSE QDAY SQ-INSULIN SCH (08:10)
[2018-10-02 12:27] LABS: BASOPHILS # (AUTO) 0.02 x10^3/uL (0-0.1); BASOPHILS % (AUTO) 0 % (0-1); EOSINOPHILS # (AUTO) 0.31 x10^3/uL (0-0.4); EOSINOPHILS % (AUTO) 4 % (1-7); LYMPHOCYTES # (AUTO) 0.78 x10^3/uL (1-3.4); LYMPHOCYTES % (AUTO) 11 % (22-44); MD NO; MEAN CORPUSCULAR HEMOGLOBIN 31.1 pg (27.5-34.5); MEAN CORPUSCULAR HGB CONC 34.3 g/dL (33.2-36.2); MEAN CORPUSCULAR VOLUME 90.4 fL (81-97); MEAN PLATELET VOLUME 9.1 fL (7.4-10.4); MONOCYTES # (AUTO) 0.47 x10^3/uL (0.2-0.8); MONOCYTES % (AUTO) 6 % (2-9); NEUTROPHILS # (AUTO) 5.86 x10^3/uL (1.8-6.8); NEUTROPHILS % (AUTO) 79 % (42-75); PLATELET COUNT 185 x10^3/uL (130-400); RED BLOOD COUNT 4.94 x10^6/uL (4.38-5.82); RED CELL DISTRIBUTION WIDTH 13.6 % (9.4-14.8)
[2018-10-02 12:31] LABS: ALANINE AMINOTRANSFERASE 139 U/L (12-78); ALBUMIN 3.7 g/dL (3.4-5.0); ANION GAP 13 mmol/L (5-15); CALCIUM 9.8 mg/dL (8.5-10.1); CHLORIDE 94 mmol/L (98-107)
[2018-10-02 12:39] LABS: ALKALINE PHOSPHATASE 243 U/L (45-117); CREATINE KINASE, TOTAL 21 U/L (39-308); CREATININE 3.02 mg/dL (0.7-1.3); TOTAL PROTEIN 8.9 g/dL (6.4-8.2)
[2018-10-02 13:27] LABS: HCT (SEDRATE) 44.6 % (39.2-51.8)
[2018-10-02 13:52] VITALS: BP 89/61
[2018-10-02] MEDS: HYDROcodone/APAP 5/325 TABLET PO PRN (14:16)
[2018-10-02] MEDS: DAPTOMYCIN 450 MG in SODIUM CHLORIDE 0.9% 100 ML IVPB SCH (15:59)
[2018-10-02] MEDS: AMINO ACID 10% 900 ML, DEXTROSE 70% 420 ML, FAT EMUL/SMOF TPN 225 ML, STERILE WATER 1,3... IV SCH (16:07)
[2018-10-02] MEDS ORDERED: SODIUM CHLORIDE 0.9% 100 ML IV SCH (18:00)
[2018-10-02 20:33] VITALS: BP 88/60
[2018-10-02 20:52] LABS: ALBUMIN 3.6 g/dL (3.4-5.0); ANION GAP 10 mmol/L (5-15); CALCIUM 9.6 mg/dL (8.5-10.1); CHLORIDE 95 mmol/L (98-107)
[2018-10-03 01:51] VITALS: BP 90/60
[2018-10-03] MEDS: INSULIN REGULAR LOW DOSE QDAY SQ-INSULIN SCH (09:00)
[2018-10-03] MEDS ORDERED: DIPHENHYDRAMINE 50 MG/ML, 1ML IVPush ONE (15:30)
[2018-10-03] MEDS: AMINO ACID 10% 900 ML, DEXTROSE 70% 420 ML, FAT EMUL/SMOF TPN 225 ML, STERILE WATER 1,3... IV SCH (16:38)
[2018-10-03 19:39] VITALS: BP 103/69
[2018-10-04] MEDS: SODIUM CHLORIDE 0.9% 1,000 ML IV SCH ×2 (01:18→14:12)
[2018-10-04] MEDS: INSULIN REGULAR LOW DOSE QDAY SQ-INSULIN SCH (09:00)
[2018-10-04] MEDS ORDERED: DIPHENHYDRAMINE 50 MG/ML, 1ML IVPush ONE (15:00)
[2018-10-04] MEDS: AMINO ACID 10% 900 ML, DEXTROSE 70% 420 ML, FAT EMUL/SMOF TPN 225 ML, STERILE WATER 1,3... IV SCH (16:52)
[2018-10-04] MEDS: DAPTOMYCIN 450 MG in SODIUM CHLORIDE 0.9% 100 ML IVPB SCH (16:55)
[2018-10-04 19:13] VITALS: BP 92/61
[2018-10-05 01:10] VITALS: BP 91/59
[2018-10-05] MEDS: SODIUM CHLORIDE 0.9% 1,000 ML IV SCH ×2 (04:40→17:51)
[2018-10-05] MEDS: INSULIN REGULAR LOW DOSE QDAY SQ-INSULIN SCH (09:00)
[2018-10-05 12:21] LABS: ALBUMIN 3.4 g/dL (3.4-5.0); ANION GAP 9 mmol/L (5-15); CALCIUM 9.9 mg/dL (8.5-10.1); CHLORIDE 102 mmol/L (98-107)
[2018-10-05 12:23] LABS: CREATININE 2.34 mg/dL (0.7-1.3)
[2018-10-05 12:49] VITALS: BP 95/58
[2018-10-05] MEDS: AMINO ACID 10% 900 ML, DEXTROSE 70% 420 ML, FAT EMUL/SMOF TPN 225 ML, STERILE WATER 1,3... IV SCH (17:00)
[2018-10-05] MEDS: DIPHENHYDRAMINE 25 MG CAPSULE PO PRN (18:24)
[2018-10-05 18:35] VITALS: BP 90/56
[2018-10-06] MEDS: SODIUM CHLORIDE 0.9% 1,000 ML IV SCH ×2 (04:57→20:11)
[2018-10-06] MEDS ORDERED: POTASSIUM CHLORIDE 20 MEQ TAB.ER.PRT PO ONE (08:00)
[2018-10-06] MEDS: INSULIN REGULAR LOW DOSE QDAY SQ-INSULIN SCH (09:00)
[2018-10-06 09:55] VITALS: BP 93/61
[2018-10-06 10:12] VITALS: BP 93/61
[2018-10-06 14:11] VITALS: BP 92/57
[2018-10-06] MEDS: AMINO ACID 10% 900 ML, DEXTROSE 70% 420 ML, FAT EMUL/SMOF TPN 225 ML, STERILE WATER 1,3... IV SCH (16:43)
[2018-10-06 18:50] VITALS: BP 87/58
[2018-10-07 00:57] VITALS: BP 89/59
[2018-10-07 08:10] VITALS: BP 91/60
[2018-10-07] MEDS: SODIUM CHLORIDE 0.9% 1,000 ML IV SCH ×2 (08:10→22:28)
[2018-10-07] MEDS: INSULIN REGULAR LOW DOSE QDAY SQ-INSULIN SCH (08:45)
[2018-10-07 15:00] VITALS: BP 91/58
[2018-10-07] MEDS: AMINO ACID 10% 900 ML, DEXTROSE 70% 420 ML, FAT EMUL/SMOF TPN 225 ML, STERILE WATER 1,3... IV SCH (16:23)
[2018-10-07 19:55] VITALS: BP 105/69
[2018-10-08 00:39] VITALS: BP 86/52
[2018-10-08] MEDS: INSULIN REGULAR LOW DOSE QDAY SQ-INSULIN SCH (09:00)
[2018-10-08] MEDS: SODIUM CHLORIDE 0.9% 1,000 ML IV SCH (11:16)
[2018-10-08 11:20] VITALS: BP 100/64
[2018-10-08] MEDS: AMINO ACID 10% 900 ML, DEXTROSE 70% 420 ML, FAT EMUL/SMOF TPN 225 ML, STERILE WATER 1,3... IV SCH (16:22)
[2018-10-08 19:28] VITALS: BP 90/61
[2018-10-09] MEDS: SODIUM CHLORIDE 0.9% 1,000 ML IV SCH ×2 (00:39→15:20)
[2018-10-09 00:51] VITALS: BP 101/69
[2018-10-09] MEDS: INSULIN REGULAR LOW DOSE QDAY SQ-INSULIN SCH (08:53)
[2018-10-09] MEDS: AMINO ACID 10% 900 ML, DEXTROSE 70% 420 ML, FAT EMUL/SMOF TPN 225 ML, STERILE WATER 1,3... IV SCH (16:10)
[2018-10-09 19:41] VITALS: BP 94/63
[2018-10-10] MEDS: SODIUM CHLORIDE 0.9% 1,000 ML IV SCH ×2 (00:36→14:55)
[2018-10-10] MEDS: INSULIN REGULAR LOW DOSE QDAY SQ-INSULIN SCH (09:00)
[2018-10-10 13:27] VITALS: BP 83/54
[2018-10-10] MEDS ORDERED: FILTER, DISP 1.2 MICRON FOR TPN/PVN IV PRN (17:00)
[2018-10-10] MEDS ORDERED: AMINO ACID 10% 900 ML, DEXTROSE 70% 420 ML, FAT EMUL/SMOF TPN 225 ML, STERILE WATER 1,3... IV SCH (17:00)
[2018-10-10 20:52] VITALS: BP 81/51
[2018-10-11 00:04] VITALS: BP 94/63
[2018-10-11] MEDS: SODIUM CHLORIDE 0.9% 1,000 ML IV SCH ×2 (03:20→16:49)
[2018-10-11] MEDS: INSULIN REGULAR LOW DOSE QDAY SQ-INSULIN SCH (09:00)
[2018-10-11 12:49] LABS: BASOPHILS # (AUTO) 0.02 x10^3/uL (0-0.1); BASOPHILS % (AUTO) 1 % (0-1); EOSINOPHILS # (AUTO) 0.31 x10^3/uL (0-0.4); EOSINOPHILS % (AUTO) 6 % (1-7); LYMPHOCYTES # (AUTO) 0.89 x10^3/uL (1-3.4); LYMPHOCYTES % (AUTO) 18 % (22-44); MD NO; MEAN CORPUSCULAR HEMOGLOBIN 30.7 pg (27.5-34.5); MEAN CORPUSCULAR HGB CONC 33.3 g/dL (33.2-36.2); MEAN CORPUSCULAR VOLUME 92.2 fL (81-97); MEAN PLATELET VOLUME 8.6 fL (7.4-10.4); MONOCYTES # (AUTO) 0.37 x10^3/uL (0.2-0.8); MONOCYTES % (AUTO) 8 % (2-9); NEUTROPHILS # (AUTO) 3.24 x10^3/uL (1.8-6.8); NEUTROPHILS % (AUTO) 67 % (42-75); PLATELET COUNT 163 x10^3/uL (130-400); RED BLOOD COUNT 4.78 x10^6/uL (4.38-5.82); RED CELL DISTRIBUTION WIDTH 13.6 % (9.4-14.8)
[2018-10-11 12:56] LABS: ALBUMIN 3.5 g/dL (3.4-5.0); ANION GAP 6 mmol/L (5-15); CALCIUM 8.9 mg/dL (8.5-10.1); CHLORIDE 105 mmol/L (98-107)
[2018-10-11 13:00] LABS: ALANINE AMINOTRANSFERASE 129 U/L (12-78); ALKALINE PHOSPHATASE 228 U/L (45-117); BILIRUBIN,TOTAL 0.7 mg/dL (0.2-1.0); CREATININE 1.78 mg/dL (0.7-1.3); TOTAL PROTEIN 8.1 g/dL (6.4-8.2)
[2018-10-11 13:37] VITALS: BP 88/60
[2018-10-11] MEDS ORDERED: FILTER, DISP 1.2 MICRON FOR TPN/PVN IV PRN (17:00)
[2018-10-11] MEDS ORDERED: AMINO ACID 10% 900 ML, DEXTROSE 70% 420 ML, FAT EMUL/SMOF TPN 225 ML, STERILE WATER 1,3... IV SCH (17:00)
[2018-10-11 19:37] VITALS: BP 93/59
[2018-10-12 01:33] VITALS: BP 86/56
[2018-10-12] MEDS: SODIUM CHLORIDE 0.9% 1,000 ML IV SCH ×2 (04:34→20:33)
[2018-10-12] MEDS: INSULIN REGULAR LOW DOSE QDAY SQ-INSULIN SCH (07:15)
[2018-10-12] MEDS: DIPHENHYDRAMINE 25 MG CAPSULE PO PRN (08:27)
[2018-10-12 08:41] VITALS: BP 91/57
[2018-10-12] MEDS ORDERED: MAGNESIUM SULFATE PMX 2GM/50ML 50 ML IV ONE (10:00)
[2018-10-12 13:12] VITALS: BP 94/62
[2018-10-12] MEDS ORDERED: AMINO ACID 10% 900 ML, DEXTROSE 70% 420 ML, FAT EMUL/SMOF TPN 225 ML, STERILE WATER 1,3... IV SCH (17:00)
[2018-10-12] MEDS: DIPHENHYDRAMINE 50 MG/ML, 1ML IVPush PRN (18:11)
[2018-10-12 19:36] VITALS: BP 96/61
[2018-10-13] MEDS: DIPHENHYDRAMINE 50 MG/ML, 1ML IVPush PRN ×3 (00:15→17:50)
[2018-10-13 00:51] VITALS: BP 91/61
[2018-10-13] MEDS: INSULIN REGULAR LOW DOSE QDAY SQ-INSULIN SCH (07:18)
[2018-10-13] MEDS: SODIUM CHLORIDE 0.9% 1,000 ML IV SCH (08:38)
[2018-10-13 12:28] VITALS: BP 83/51
[2018-10-13] MEDS ORDERED: AMINO ACID 10% 900 ML, DEXTROSE 70% 420 ML, FAT EMUL/SMOF TPN 225 ML, STERILE WATER 1,3... IV SCH (17:00)
[2018-10-13 19:33] VITALS: BP 92/59
[2018-10-14 03:40] VITALS: BP 94/62
[2018-10-14] MEDS: DIPHENHYDRAMINE 50 MG/ML, 1ML IVPush PRN ×3 (04:33→19:41)
[2018-10-14] MEDS: INSULIN REGULAR LOW DOSE QDAY SQ-INSULIN SCH (09:00)
[2018-10-14] MEDS: SODIUM CHLORIDE 0.9% 1,000 ML IV SCH ×2 (13:16)
[2018-10-14 15:16] VITALS: BP 98/63
[2018-10-14] MEDS: AMINO ACID 10% 900 ML, DEXTROSE 70% 420 ML, FAT EMUL/SMOF TPN 225 ML, STERILE WATER 1,3... IV SCH (17:00)
[2018-10-14 18:45] VITALS: BP 89/56
[2018-10-15] MEDS: SODIUM CHLORIDE 0.9% 1,000 ML IV SCH ×2 (02:35→16:00)
[2018-10-15] MEDS: DIPHENHYDRAMINE 50 MG/ML, 1ML IVPush PRN ×4 (02:38→22:28)
[2018-10-15 07:38] VITALS: BP 95/54
[2018-10-15] MEDS: INSULIN REGULAR LOW DOSE QDAY SQ-INSULIN SCH (09:00)
[2018-10-15] MEDS ORDERED: LIDOCAINE-MPF 1%, 5ML ONE (15:38)
[2018-10-15] MEDS ORDERED: FLUMAZENIL 0.1 MG/1 ML, 5ML ONE (15:42)
[2018-10-15] MEDS ORDERED: MIDAZOLAM 1 MG/ML, 5ML ONE (15:42)
[2018-10-15] MEDS ORDERED: NALOXONE 1 MG/ML, 2ML ONE (15:42)
[2018-10-15] MEDS ORDERED: FENTANYL PF 100 MCG/2ML ONE (15:42)
[2018-10-15] MEDS: AMINO ACID 10% 900 ML, DEXTROSE 70% 420 ML, FAT EMUL/SMOF TPN 225 ML, STERILE WATER 1,3... IV SCH (17:00)
[2018-10-15 20:25] VITALS: BP 94/59
[2018-10-16 01:38] VITALS: BP 96/60
[2018-10-16] MEDS: SODIUM CHLORIDE 0.9% 1,000 ML IV SCH ×2 (05:20→18:40)
[2018-10-16] MEDS: DIPHENHYDRAMINE 50 MG/ML, 1ML IVPush PRN ×3 (05:41→20:29)
[2018-10-16 06:16] LABS: ALBUMIN 3.2 g/dL (3.4-5.0); ANION GAP 7 mmol/L (5-15); CALCIUM 8.6 mg/dL (8.5-10.1); CHLORIDE 106 mmol/L (98-107)
[2018-10-16 06:21] LABS: ALANINE AMINOTRANSFERASE 90 U/L (12-78); ALKALINE PHOSPHATASE 212 U/L (45-117); BILIRUBIN,TOTAL 0.8 mg/dL (0.2-1.0); CREATININE 1.55 mg/dL (0.7-1.3); PREALBUMIN 24.2 mg/dL (20.0-40.0); TOTAL PROTEIN 7.4 g/dL (6.4-8.2); TRIGLYCERIDES 194 mg/dL (50-200)
[2018-10-16] MEDS: INSULIN REGULAR LOW DOSE QDAY SQ-INSULIN SCH ×2 (08:11→19:33)
[2018-10-16 10:38] VITALS: BP 95/63
[2018-10-16] MEDS ORDERED: TPN PER PHARMACY MC SCH (15:23)
[2018-10-16] MEDS ORDERED: AMINO ACID 10% IV SCH (17:00)
[2018-10-16] MEDS ORDERED: FAT EMUL IV SCH (17:00)
[2018-10-16] MEDS ORDERED: [UNRECOGNIZED DRUG - OTHER] IV SCH (17:00)
[2018-10-16] MEDS ORDERED: SMOF TPN IV SCH (17:00)
[2018-10-16] MEDS ORDERED: DEXTROSE 70% IV SCH (17:00)
[2018-10-16 17:54] VITALS: BP 91/62
[2018-10-16 20:33] VITALS: BP 96/65
[2018-10-17 01:34] VITALS: BP 91/61
[2018-10-17] MEDS: DIPHENHYDRAMINE 25 MG CAPSULE PO PRN (05:03)
[2018-10-17] MEDS: DIPHENHYDRAMINE 50 MG/ML, 1ML IVPush PRN ×3 (05:21→23:21)
[2018-10-17 05:39] LABS: ANION GAP 7 mmol/L (5-15); CALCIUM 8.5 mg/dL (8.5-10.1); CHLORIDE 106 mmol/L (98-107)
[2018-10-17 05:40] LABS: CREATININE 1.55 mg/dL (0.7-1.3)
[2018-10-17] MEDS: INSULIN REGULAR LOW DOSE QDAY SQ-INSULIN SCH ×4 (06:00→19:26)
[2018-10-17] MEDS: SODIUM CHLORIDE 0.9% 1,000 ML IV SCH (08:00)
[2018-10-17] MEDS ORDERED: FAT EMUL IV SCH (17:00)
[2018-10-17] MEDS ORDERED: SMOF TPN IV SCH (17:00)
[2018-10-17] MEDS ORDERED: [UNRECOGNIZED DRUG - OTHER] IV SCH (17:00)
[2018-10-17] MEDS ORDERED: DEXTROSE 70% IV SCH (17:00)
[2018-10-17] MEDS ORDERED: FILTER, DISP 1.2 MICRON FOR TPN/PVN IV PRN (17:00)
[2018-10-17] MEDS ORDERED: AMINO ACID 10% IV SCH (17:00)
[2018-10-18] MEDS: INSULIN REGULAR LOW DOSE QDAY SQ-INSULIN SCH (06:00)
[2018-10-18] MEDS: SODIUM CHLORIDE 0.9% 1,000 ML IV SCH (07:30)
[2018-10-18] MEDS ORDERED: AMINO ACID 10% IV SCH ×2 (09:51→17:00)
[2018-10-18] MEDS ORDERED: FAT EMUL IV SCH ×2 (09:51→17:00)
[2018-10-18] MEDS ORDERED: DEXTROSE 70% IV SCH ×2 (09:51→17:00)
[2018-10-18] MEDS ORDERED: SMOF TPN IV SCH ×2 (09:51→17:00)
[2018-10-18] MEDS ORDERED: [UNRECOGNIZED DRUG - OTHER] IV SCH ×2 (09:51→17:00)
[2018-10-18] MEDS: DIPHENHYDRAMINE 50 MG/ML, 1ML IVPush PRN ×2 (12:24→20:13)
[2018-10-18] MEDS ORDERED: FILTER, DISP 1.2 MICRON FOR TPN/PVN IV PRN (17:00)
[2018-10-18] MEDS ORDERED: INSULIN REGULAR LOW DOSE QDAY SQ-INSULIN SCH (21:00)
[2018-10-18] MEDS: HYDROcodone/APAP 5/325 TABLET PO PRN (23:08)
[2018-10-19] MEDS: HYDROcodone/APAP 5/325 TABLET PO PRN (04:18)
[2018-10-19] MEDS: DIPHENHYDRAMINE 50 MG/ML, 1ML IVPush PRN ×2 (04:41→14:36)
[2018-10-19 05:53] LABS: CHLORIDE 108 mmol/L (98-107)
[2018-10-19 05:58] LABS: ANION GAP 10 mmol/L (5-15); CALCIUM 8.5 mg/dL (8.5-10.1); CREATININE 1.29 mg/dL (0.7-1.3)
[2018-10-19] MEDS ORDERED: SODIUM PHOSPHATE 10 MMOL in SODIUM CHLORIDE 0.9% 500 ML IV ONE (08:00)
[2018-10-19] MEDS ORDERED: MAGNESIUM SULFATE PMX 2GM/50ML 50 ML IV ONE (08:00)
[2018-10-19] MEDS: INSULIN REGULAR LOW DOSE QDAY SQ-INSULIN SCH (09:00)
[2018-10-19] MEDS: SODIUM CHLORIDE 0.9% 1,000 ML IV SCH ×2 (09:00→22:20)
[2018-10-19] MEDS ORDERED: FAT EMUL IV SCH (17:00)
[2018-10-19] MEDS ORDERED: AMINO ACID 10% IV SCH (17:00)
[2018-10-19] MEDS ORDERED: FILTER, DISP 1.2 MICRON FOR TPN/PVN IV PRN (17:00)
[2018-10-19] MEDS ORDERED: DEXTROSE 70% IV SCH (17:00)
[2018-10-19] MEDS ORDERED: [UNRECOGNIZED DRUG - OTHER] IV SCH (17:00)
[2018-10-19] MEDS ORDERED: SMOF TPN IV SCH (17:00)
[2018-10-20 00:22] VITALS: BP 104/68
[2018-10-20] MEDS: DIPHENHYDRAMINE 50 MG/ML, 1ML IVPush PRN ×3 (01:50→20:31)
[2018-10-20] MEDS: HYDROcodone/APAP 5/325 TABLET PO PRN (04:38)
[2018-10-20 04:50] LABS: ANION GAP 8 mmol/L (5-15); CALCIUM 7.7 mg/dL (8.5-10.1); CHLORIDE 108 mmol/L (98-107); CREATININE 1.33 mg/dL (0.7-1.3)
[2018-10-20] MEDS: INSULIN REGULAR LOW DOSE QDAY SQ-INSULIN SCH (09:00)
[2018-10-20] MEDS: SODIUM CHLORIDE 0.9% 1,000 ML IV SCH (11:40)
[2018-10-20] MEDS ORDERED: FILTER, DISP 1.2 MICRON FOR TPN/PVN IV PRN (17:00)
[2018-10-20] MEDS ORDERED: AMINO ACID 10% IV SCH (17:00)
[2018-10-20] MEDS ORDERED: DEXTROSE 70% IV SCH (17:00)
[2018-10-20] MEDS ORDERED: FAT EMUL IV SCH (17:00)
[2018-10-20] MEDS ORDERED: [UNRECOGNIZED DRUG - OTHER] IV SCH (17:00)
[2018-10-20] MEDS ORDERED: SMOF TPN IV SCH (17:00)
[2018-10-20 18:37] VITALS: BP 105/64
[2018-10-21] MEDS: SODIUM CHLORIDE 0.9% 1,000 ML IV SCH (01:00)
[2018-10-21] MEDS: DIPHENHYDRAMINE 50 MG/ML, 1ML IVPush PRN ×3 (04:38→21:20)
[2018-10-21 05:17] LABS: ANION GAP 7 mmol/L (5-15); CALCIUM 7.8 mg/dL (8.5-10.1); CHLORIDE 108 mmol/L (98-107); CREATININE 1.51 mg/dL (0.7-1.3)
[2018-10-21] MEDS: INSULIN REGULAR LOW DOSE QDAY SQ-INSULIN SCH (08:50)
[2018-10-21] MEDS ORDERED: FILTER, DISP 1.2 MICRON FOR TPN/PVN IV PRN (10:30)
[2018-10-21 13:52] VITALS: BP 97/63
[2018-10-21] MEDS ORDERED: [UNRECOGNIZED DRUG - OTHER] IV SCH (17:00)
[2018-10-21] MEDS ORDERED: SMOF TPN IV SCH (17:00)
[2018-10-21] MEDS ORDERED: AMINO ACID 10% IV SCH (17:00)
[2018-10-21] MEDS ORDERED: DEXTROSE 70% IV SCH (17:00)
[2018-10-21] MEDS ORDERED: FAT EMUL IV SCH (17:00)
[2018-10-21 21:43] VITALS: BP 95/62
[2018-10-22 02:59] VITALS: BP 112/74
[2018-10-22] MEDS: DIPHENHYDRAMINE 50 MG/ML, 1ML IVPush PRN ×3 (05:35→20:44)
[2018-10-22 05:55] LABS: ALBUMIN 2.6 g/dL (3.4-5.0); ANION GAP 5 mmol/L (5-15); CALCIUM 8.1 mg/dL (8.5-10.1); CHLORIDE 107 mmol/L (98-107)
[2018-10-22 06:02] LABS: ALANINE AMINOTRANSFERASE 32 U/L (12-78); ALKALINE PHOSPHATASE 186 U/L (45-117); BILIRUBIN,TOTAL 0.3 mg/dL (0.2-1.0); CREATININE 1.25 mg/dL (0.7-1.3); PREALBUMIN 24.3 mg/dL (20.0-40.0); TOTAL PROTEIN 6.8 g/dL (6.4-8.2); TRIGLYCERIDES 122 mg/dL (50-200)
[2018-10-22] MEDS: INSULIN REGULAR LOW DOSE QDAY SQ-INSULIN SCH (09:00)
[2018-10-22 14:01] VITALS: BP 96/63
[2018-10-22] MEDS ORDERED: AMINO ACID 10% IV SCH (17:00)
[2018-10-22] MEDS ORDERED: FAT EMUL IV SCH (17:00)
[2018-10-22] MEDS ORDERED: [UNRECOGNIZED DRUG - OTHER] IV SCH (17:00)
[2018-10-22] MEDS ORDERED: SMOF TPN IV SCH (17:00)
[2018-10-22] MEDS ORDERED: DEXTROSE 70% IV SCH (17:00)
[2018-10-22 20:41] VITALS: BP 110/68
[2018-10-23 03:34] VITALS: BP 116/72
[2018-10-23] MEDS: DIPHENHYDRAMINE 50 MG/ML, 1ML IVPush PRN ×3 (04:59→21:37)
[2018-10-23 05:20] LABS: ANION GAP 4 mmol/L (5-15); CALCIUM 8.1 mg/dL (8.5-10.1); CHLORIDE 110 mmol/L (98-107); CREATININE 1.47 mg/dL (0.7-1.3)
[2018-10-23] MEDS: INSULIN REGULAR LOW DOSE QDAY SQ-INSULIN SCH (07:15)
[2018-10-23 09:00] VITALS: BP 104/68
[2018-10-23 14:08] VITALS: BP 96/64
[2018-10-23] MEDS: SODIUM CHLORIDE 0.9% 1,000 ML IV SCH (16:22)
[2018-10-23] MEDS ORDERED: SMOF TPN IV SCH (17:00)
[2018-10-23] MEDS ORDERED: AMINO ACID 10% IV SCH (17:00)
[2018-10-23] MEDS ORDERED: FAT EMUL IV SCH (17:00)
[2018-10-23] MEDS ORDERED: DEXTROSE 70% IV SCH (17:00)
[2018-10-23] MEDS ORDERED: [UNRECOGNIZED DRUG - OTHER] IV SCH (17:00)
[2018-10-23 20:09] VITALS: BP 101/63
[2018-10-24 04:41] VITALS: BP 105/71
[2018-10-24] MEDS: DIPHENHYDRAMINE 50 MG/ML, 1ML IVPush PRN ×3 (04:55→21:48)
[2018-10-24 05:20] LABS: ANION GAP 5 mmol/L (5-15); CALCIUM 7.1 mg/dL (8.5-10.1); CHLORIDE 113 mmol/L (98-107); CREATININE 1.16 mg/dL (0.7-1.3)
[2018-10-24] MEDS: INSULIN REGULAR LOW DOSE QDAY SQ-INSULIN SCH (08:43)
[2018-10-24] MEDS: SODIUM CHLORIDE 0.9% 1,000 ML IV SCH (12:09)
[2018-10-24] MEDS ORDERED: DEXTROSE 70% IV SCH (17:00)
[2018-10-24] MEDS ORDERED: SMOF TPN IV SCH (17:00)
[2018-10-24] MEDS ORDERED: AMINO ACID 10% IV SCH (17:00)
[2018-10-24] MEDS ORDERED: [UNRECOGNIZED DRUG - OTHER] IV SCH (17:00)
[2018-10-24] MEDS ORDERED: FAT EMUL IV SCH (17:00)
[2018-10-24 19:41] VITALS: BP 111/73
[2018-10-25 04:52] LABS: ANION GAP 6 mmol/L (5-15); CALCIUM 8.8 mg/dL (8.5-10.1); CHLORIDE 106 mmol/L (98-107); CREATININE 1.23 mg/dL (0.7-1.3)
[2018-10-25] MEDS: DIPHENHYDRAMINE 50 MG/ML, 1ML IVPush PRN ×3 (05:50→22:08)
[2018-10-25] MEDS: INSULIN REGULAR LOW DOSE QDAY SQ-INSULIN SCH (09:27)
[2018-10-25 12:39] VITALS: BP 104/69
[2018-10-25] MEDS ORDERED: DEXTROSE 70% IV SCH (17:00)
[2018-10-25] MEDS ORDERED: SMOF TPN IV SCH (17:00)
[2018-10-25] MEDS ORDERED: FAT EMUL IV SCH (17:00)
[2018-10-25] MEDS ORDERED: AMINO ACID 10% IV SCH (17:00)
[2018-10-25] MEDS ORDERED: [UNRECOGNIZED DRUG - OTHER] IV SCH (17:00)
[2018-10-25] MEDS: SODIUM CHLORIDE 0.9% 1,000 ML IV SCH (17:55)
[2018-10-25 19:55] VITALS: BP 88/58
[2018-10-25 20:59] VITALS: BP 103/66
[2018-10-26 05:00] VITALS: BP 99/65
[2018-10-26 05:53] LABS: CHLORIDE 105 mmol/L (98-107)
[2018-10-26 05:59] LABS: ANION GAP 7 mmol/L (5-15); CALCIUM 8.5 mg/dL (8.5-10.1); CREATININE 1.37 mg/dL (0.7-1.3)
[2018-10-26] MEDS: DIPHENHYDRAMINE 50 MG/ML, 1ML IVPush PRN ×3 (06:04→23:12)
[2018-10-26] MEDS: INSULIN REGULAR LOW DOSE QDAY SQ-INSULIN SCH (08:39)
[2018-10-26 13:41] VITALS: BP 92/62
[2018-10-26] MEDS ORDERED: SMOF TPN IV SCH (17:00)
[2018-10-26] MEDS ORDERED: [UNRECOGNIZED DRUG - OTHER] IV SCH (17:00)
[2018-10-26] MEDS ORDERED: DEXTROSE 70% IV SCH (17:00)
[2018-10-26] MEDS ORDERED: AMINO ACID 10% IV SCH (17:00)
[2018-10-26] MEDS ORDERED: FAT EMUL IV SCH (17:00)
[2018-10-26] MEDS: SODIUM CHLORIDE 0.9% 1,000 ML IV SCH (17:50)
[2018-10-26] MEDS: FILTER, DISP 1.2 MICRON FOR TPN/PVN IV PRN (17:50)
[2018-10-26 18:50] VITALS: BP 92/60
[2018-10-27] VITALS: BP 96/64
[2018-10-27 06:00] LABS: ANION GAP 7 mmol/L (5-15); CALCIUM 8.3 mg/dL (8.5-10.1); CHLORIDE 104 mmol/L (98-107)
[2018-10-27 06:02] LABS: CREATININE 1.34 mg/dL (0.7-1.3)
[2018-10-27] MEDS: INSULIN REGULAR LOW DOSE QDAY SQ-INSULIN SCH (09:00)
[2018-10-27] MEDS: DIPHENHYDRAMINE 50 MG/ML, 1ML IVPush PRN ×2 (09:17→18:01)
[2018-10-27] MEDS: HYDROcodone/APAP 5/325 TABLET PO PRN (12:31)
[2018-10-27] MEDS: SODIUM CHLORIDE 0.9% 1,000 ML IV SCH (12:31)
[2018-10-27 14:44] VITALS: BP 100/65
[2018-10-27] MEDS ORDERED: AMINO ACID 10% IV SCH (17:00)
[2018-10-27] MEDS ORDERED: FAT EMUL IV SCH (17:00)
[2018-10-27] MEDS ORDERED: DEXTROSE 70% IV SCH (17:00)
[2018-10-27] MEDS ORDERED: [UNRECOGNIZED DRUG - OTHER] IV SCH (17:00)
[2018-10-27] MEDS ORDERED: SMOF TPN IV SCH (17:00)
[2018-10-27] MEDS: FILTER, DISP 1.2 MICRON FOR TPN/PVN IV PRN (18:01)
[2018-10-27 18:40] VITALS: BP 102/67
[2018-10-28] MEDS: HYDROcodone/APAP 5/325 TABLET PO PRN (01:11)
[2018-10-28] MEDS: DIPHENHYDRAMINE 50 MG/ML, 1ML IVPush PRN ×3 (01:43→21:16)
[2018-10-28] MEDS: SODIUM CHLORIDE 0.9% 1,000 ML IV SCH (09:00)
[2018-10-28] MEDS: INSULIN REGULAR LOW DOSE QDAY SQ-INSULIN SCH (09:00)
[2018-10-28 14:00] VITALS: BP 101/65
[2018-10-28] MEDS ORDERED: AMINO ACID 10% IV SCH (17:00)
[2018-10-28] MEDS ORDERED: [UNRECOGNIZED DRUG - OTHER] IV SCH (17:00)
[2018-10-28] MEDS ORDERED: FAT EMUL IV SCH (17:00)
[2018-10-28] MEDS ORDERED: DEXTROSE 70% IV SCH (17:00)
[2018-10-28] MEDS ORDERED: SMOF TPN IV SCH (17:00)
[2018-10-28 18:50] VITALS: BP 97/66
[2018-10-29] MEDS: SODIUM CHLORIDE 0.9% 1,000 ML IV SCH ×2 (04:40→22:15)
[2018-10-29] MEDS: DIPHENHYDRAMINE 50 MG/ML, 1ML IVPush PRN ×3 (05:05→22:06)
[2018-10-29 05:18] LABS: ALANINE AMINOTRANSFERASE 37 U/L (12-78); ALBUMIN 2.7 g/dL (3.4-5.0); ANION GAP 7 mmol/L (5-15); CALCIUM 8.1 mg/dL (8.5-10.1); CHLORIDE 106 mmol/L (98-107); CREATININE 1.32 mg/dL (0.7-1.3)
[2018-10-29 05:26] LABS: ALKALINE PHOSPHATASE 217 U/L (45-117); BILIRUBIN,TOTAL 0.4 mg/dL (0.2-1.0); PREALBUMIN 30.4 mg/dL (20.0-40.0); TOTAL PROTEIN 6.7 g/dL (6.4-8.2)
[2018-10-29] MEDS: INSULIN REGULAR LOW DOSE QDAY SQ-INSULIN SCH (09:00)
[2018-10-29] MEDS ORDERED: SMOF TPN IV SCH (17:00)
[2018-10-29] MEDS ORDERED: [UNRECOGNIZED DRUG - OTHER] IV SCH (17:00)
[2018-10-29] MEDS ORDERED: AMINO ACID 10% IV SCH (17:00)
[2018-10-29] MEDS ORDERED: FAT EMUL IV SCH (17:00)
[2018-10-29] MEDS ORDERED: DEXTROSE 70% IV SCH (17:00)
[2018-10-29] MEDS: FILTER, DISP 1.2 MICRON FOR TPN/PVN IV PRN (17:07)
[2018-10-29 22:13] VITALS: BP 114/74
[2018-10-30 02:30] VITALS: BP 109/72
[2018-10-30] MEDS: DIPHENHYDRAMINE 50 MG/ML, 1ML IVPush PRN ×3 (06:20→22:37)
[2018-10-30] MEDS: INSULIN REGULAR LOW DOSE QDAY SQ-INSULIN SCH (09:00)
[2018-10-30] MEDS ORDERED: [UNRECOGNIZED DRUG - OTHER] IV SCH (17:00)
[2018-10-30] MEDS ORDERED: FAT EMUL IV SCH (17:00)
[2018-10-30] MEDS ORDERED: DEXTROSE 70% IV SCH (17:00)
[2018-10-30] MEDS ORDERED: SMOF TPN IV SCH (17:00)
[2018-10-30] MEDS ORDERED: AMINO ACID 10% IV SCH (17:00)
[2018-10-30] MEDS: SODIUM CHLORIDE 0.9% 1,000 ML IV SCH (19:07)
[2018-10-30 23:01] VITALS: BP 118/80
[2018-10-31 05:24] LABS: CHLORIDE 108 mmol/L (98-107)
[2018-10-31 05:29] LABS: CALCIUM 8.7 mg/dL (8.5-10.1); CREATININE 1.24 mg/dL (0.7-1.3)
[2018-10-31 05:30] LABS: ANION GAP 7 mmol/L (5-15)
[2018-10-31] MEDS: DIPHENHYDRAMINE 50 MG/ML, 1ML IVPush PRN ×3 (05:43→19:48)
[2018-10-31] MEDS: INSULIN REGULAR LOW DOSE QDAY SQ-INSULIN SCH (08:41)
[2018-10-31] MEDS ORDERED: DIPHENHYDRAMINE 25 MG CAPSULE PO PRN (10:00)
[2018-10-31] MEDS ORDERED: [UNRECOGNIZED DRUG - OTHER] IV SCH (17:00)
[2018-10-31] MEDS ORDERED: FILTER, DISP 1.2 MICRON FOR TPN/PVN IV PRN (17:00)
[2018-10-31] MEDS ORDERED: SMOF TPN IV SCH (17:00)
[2018-10-31] MEDS ORDERED: FAT EMUL IV SCH (17:00)
[2018-10-31] MEDS ORDERED: AMINO ACID 10% IV SCH (17:00)
[2018-10-31] MEDS ORDERED: DEXTROSE 70% IV SCH (17:00)
[2018-10-31] MEDS: SODIUM CHLORIDE 0.9% 1,000 ML IV SCH (17:59)
[2018-10-31 19:33] VITALS: BP 106/70
[2018-10-31] MEDS: HYDROcodone/APAP 5/325 TABLET PO PRN (21:05)
[2018-11-01] MEDS: DIPHENHYDRAMINE 50 MG/ML, 1ML IVPush PRN ×3 (04:56→23:15)
[2018-11-01 07:33] VITALS: BP 168/116
[2018-11-01] MEDS: INSULIN REGULAR LOW DOSE QDAY SQ-INSULIN SCH (09:00)
[2018-11-01] MEDS: SODIUM CHLORIDE 0.9% 1,000 ML IV SCH (14:26)
[2018-11-01] MEDS ORDERED: DEXTROSE 70% IV SCH (17:00)
[2018-11-01] MEDS ORDERED: FILTER, DISP 1.2 MICRON FOR TPN/PVN IV PRN (17:00)
[2018-11-01] MEDS ORDERED: SMOF TPN IV SCH (17:00)
[2018-11-01] MEDS ORDERED: FAT EMUL IV SCH (17:00)
[2018-11-01] MEDS ORDERED: AMINO ACID 10% IV SCH (17:00)
[2018-11-01] MEDS ORDERED: [UNRECOGNIZED DRUG - OTHER] IV SCH (17:00)
[2018-11-01 18:14] VITALS: BP 119/74
[2018-11-01] MEDS: HYDROcodone/APAP 5/325 TABLET PO PRN (18:22)
[2018-11-02 05:39] LABS: ANION GAP 5 mmol/L (5-15); CALCIUM 8.3 mg/dL (8.5-10.1); CHLORIDE 106 mmol/L (98-107); CREATININE 1.39 mg/dL (0.7-1.3)
[2018-11-02] MEDS: INSULIN REGULAR LOW DOSE QDAY SQ-INSULIN SCH (09:00)
[2018-11-02 09:39] VITALS: BP 93/59
[2018-11-02] MEDS: SODIUM CHLORIDE 0.9% 1,000 ML IV SCH (09:55)
[2018-11-02] MEDS: DIPHENHYDRAMINE 50 MG/ML, 1ML IVPush PRN ×2 (09:55→17:21)
[2018-11-02] MEDS: MORPHINE SULFATE 4 MG/ML, 1ML IVPush PRN ×2 (10:23→22:31)
[2018-11-02 13:14] VITALS: BP 96/63
[2018-11-02] MEDS ORDERED: AMINO ACID 10% IV SCH (17:00)
[2018-11-02] MEDS ORDERED: DEXTROSE 70% IV SCH (17:00)
[2018-11-02] MEDS ORDERED: [UNRECOGNIZED DRUG - OTHER] IV SCH (17:00)
[2018-11-02] MEDS ORDERED: FILTER, DISP 1.2 MICRON FOR TPN/PVN IV PRN (17:00)
[2018-11-02] MEDS ORDERED: FAT EMUL IV SCH (17:00)
[2018-11-02] MEDS ORDERED: SMOF TPN IV SCH (17:00)
[2018-11-02 19:33] VITALS: BP 96/61
[2018-11-03] MEDS: DIPHENHYDRAMINE 50 MG/ML, 1ML IVPush PRN ×3 (01:34→21:02)
[2018-11-03] MEDS: SODIUM CHLORIDE 0.9% 1,000 ML IV SCH ×2 (03:09→21:07)
[2018-11-03 03:18] LABS: BASOPHILS # (AUTO) 0.02 x10^3/uL (0-0.1); BASOPHILS % (AUTO) 0 % (0-1); EOSINOPHILS # (AUTO) 0.27 x10^3/uL (0-0.4); EOSINOPHILS % (AUTO) 6 % (1-7); LYMPHOCYTES # (AUTO) 1.03 x10^3/uL (1-3.4); LYMPHOCYTES % (AUTO) 22 % (22-44); MD NO; MEAN CORPUSCULAR HGB CONC 34.1 g/dL (33.2-36.2); MEAN CORPUSCULAR VOLUME 93.8 fL (81-97); MEAN PLATELET VOLUME 8.9 fL (7.4-10.4); MONOCYTES # (AUTO) 0.37 x10^3/uL (0.2-0.8); MONOCYTES % (AUTO) 8 % (2-9); NEUTROPHILS % (AUTO) 64 % (42-75); PLATELET COUNT 162 x10^3/uL (130-400); RED BLOOD COUNT 3.32 x10^6/uL (4.38-5.82); RED CELL DISTRIBUTION WIDTH 15.4 % (9.4-14.8)
[2018-11-03 03:26] LABS: ALANINE AMINOTRANSFERASE 32 U/L (12-78); ALBUMIN 2.8 g/dL (3.4-5.0); ANION GAP 8 mmol/L (5-15); CALCIUM 8.3 mg/dL (8.5-10.1); CHLORIDE 105 mmol/L (98-107); CREATININE 1.42 mg/dL (0.7-1.3)
[2018-11-03 03:28] LABS: ALKALINE PHOSPHATASE 235 U/L (45-117); BILIRUBIN,TOTAL 0.4 mg/dL (0.2-1.0); TOTAL PROTEIN 6.6 g/dL (6.4-8.2)
[2018-11-03] MEDS: INSULIN REGULAR LOW DOSE QDAY SQ-INSULIN SCH (09:00)
[2018-11-03] MEDS: MORPHINE SULFATE 4 MG/ML, 1ML IVPush PRN ×2 (11:46→18:20)
[2018-11-03 13:38] VITALS: BP 99/65
[2018-11-03] MEDS ORDERED: FILTER, DISP 1.2 MICRON FOR TPN/PVN IV PRN (17:00)
[2018-11-03] MEDS ORDERED: AMINO ACID 10% IV SCH (17:00)
[2018-11-03] MEDS ORDERED: SMOF TPN IV SCH (17:00)
[2018-11-03] MEDS ORDERED: [UNRECOGNIZED DRUG - OTHER] IV SCH (17:00)
[2018-11-03] MEDS ORDERED: DEXTROSE 70% IV SCH (17:00)
[2018-11-03] MEDS ORDERED: FAT EMUL IV SCH (17:00)
[2018-11-03 18:54] VITALS: BP 90/54
[2018-11-04] MEDS: MORPHINE SULFATE 4 MG/ML, 1ML IVPush PRN ×2 (01:26→14:05)
[2018-11-04] MEDS: DIPHENHYDRAMINE 50 MG/ML, 1ML IVPush PRN (05:02)
[2018-11-04] MEDS: INSULIN REGULAR LOW DOSE QDAY SQ-INSULIN SCH (08:40)
[2018-11-04 14:03] VITALS: BP 106/72
[2018-11-04] MEDS ORDERED: SMOF TPN IV SCH (17:00)
[2018-11-04] MEDS ORDERED: [UNRECOGNIZED DRUG - OTHER] IV SCH (17:00)
[2018-11-04] MEDS ORDERED: FILTER, DISP 1.2 MICRON FOR TPN/PVN IV PRN (17:00)
[2018-11-04] MEDS ORDERED: AMINO ACID 10% IV SCH (17:00)
[2018-11-04] MEDS ORDERED: FAT EMUL IV SCH (17:00)
[2018-11-04] MEDS ORDERED: DEXTROSE 70% IV SCH (17:00)
[2018-11-04 18:46] VITALS: BP 98/63
[2018-11-04] MEDS: SODIUM CHLORIDE 0.9% 1,000 ML IV SCH (21:20)
[2018-11-05] MEDS: MORPHINE SULFATE 4 MG/ML, 1ML IVPush PRN ×4 (02:51→23:33)
[2018-11-05 02:54] VITALS: BP 99/68
[2018-11-05 03:34] LABS: ALANINE AMINOTRANSFERASE 26 U/L (12-78); ALBUMIN 2.7 g/dL (3.4-5.0); ANION GAP 3 mmol/L (5-15); CALCIUM 8.1 mg/dL (8.5-10.1); CHLORIDE 113 mmol/L (98-107); CREATININE 1.44 mg/dL (0.7-1.3)
[2018-11-05 03:39] LABS: ALKALINE PHOSPHATASE 219 U/L (45-117); BILIRUBIN,TOTAL 0.3 mg/dL (0.2-1.0); PREALBUMIN 28.5 mg/dL (20.0-40.0); TOTAL PROTEIN 6.3 g/dL (6.4-8.2); TRIGLYCERIDES 172 mg/dL (50-200)
[2018-11-05] MEDS: INSULIN REGULAR LOW DOSE QDAY SQ-INSULIN SCH (08:23)
[2018-11-05 12:43] VITALS: BP 95/59
[2018-11-05] MEDS ORDERED: AMINO ACID 10% IV SCH (17:00)
[2018-11-05] MEDS ORDERED: FAT EMUL IV SCH (17:00)
[2018-11-05] MEDS ORDERED: DEXTROSE 70% IV SCH (17:00)
[2018-11-05] MEDS ORDERED: SMOF TPN IV SCH (17:00)
[2018-11-05] MEDS ORDERED: [UNRECOGNIZED DRUG - OTHER] IV SCH (17:00)
[2018-11-05] MEDS: SODIUM CHLORIDE 0.9% 1,000 ML IV SCH (17:08)
[2018-11-05 20:50] VITALS: BP 105/64
[2018-11-06 04:02] LABS: ANION GAP 4 mmol/L (5-15); CALCIUM 8.5 mg/dL (8.5-10.1); CHLORIDE 108 mmol/L (98-107); CREATININE 1.38 mg/dL (0.7-1.3)
[2018-11-06 04:32] VITALS: BP 101/65
[2018-11-06] MEDS: MORPHINE SULFATE 4 MG/ML, 1ML IVPush PRN ×4 (04:34→23:26)
[2018-11-06] MEDS: INSULIN REGULAR LOW DOSE QDAY SQ-INSULIN SCH (09:00)
[2018-11-06] MEDS ORDERED: SMOF TPN IV SCH (17:00)
[2018-11-06] MEDS ORDERED: [UNRECOGNIZED DRUG - OTHER] IV SCH (17:00)
[2018-11-06] MEDS ORDERED: AMINO ACID 10% IV SCH (17:00)
[2018-11-06] MEDS ORDERED: DEXTROSE 70% IV SCH (17:00)
[2018-11-06] MEDS ORDERED: FAT EMUL IV SCH (17:00)
[2018-11-06] MEDS: SODIUM CHLORIDE 0.9% 1,000 ML IV SCH (17:00)
[2018-11-06 23:23] VITALS: BP 105/68
[2018-11-07] MEDS: MORPHINE SULFATE 4 MG/ML, 1ML IVPush PRN ×4 (05:39→19:30)
[2018-11-07] MEDS: INSULIN REGULAR LOW DOSE QDAY SQ-INSULIN SCH (08:12)
[2018-11-07 13:17] VITALS: BP 99/64
[2018-11-07] MEDS ORDERED: FAT EMUL IV SCH (17:00)
[2018-11-07] MEDS ORDERED: DEXTROSE 70% IV SCH (17:00)
[2018-11-07] MEDS ORDERED: AMINO ACID 10% IV SCH (17:00)
[2018-11-07] MEDS ORDERED: FILTER, DISP 1.2 MICRON FOR TPN/PVN IV PRN (17:00)
[2018-11-07] MEDS ORDERED: SMOF TPN IV SCH (17:00)
[2018-11-07] MEDS ORDERED: [UNRECOGNIZED DRUG - OTHER] IV SCH (17:00)
[2018-11-07] MEDS: SODIUM CHLORIDE 0.9% 1,000 ML IV SCH (17:45)
[2018-11-07 19:28] VITALS: BP 102/66
[2018-11-08] MEDS: MORPHINE SULFATE 4 MG/ML, 1ML IVPush PRN ×4 (04:37→20:43)
[2018-11-08] MEDS: INSULIN REGULAR LOW DOSE QDAY SQ-INSULIN SCH (08:38)
[2018-11-08] MEDS ORDERED: FILTER, DISP 1.2 MICRON FOR TPN/PVN IV PRN (12:30)
[2018-11-08] MEDS: SODIUM CHLORIDE 0.9% 1,000 ML IV SCH (15:23)
[2018-11-08] MEDS ORDERED: [UNRECOGNIZED DRUG - OTHER] IV SCH (17:00)
[2018-11-08] MEDS ORDERED: DEXTROSE 70% IV SCH (17:00)
[2018-11-08] MEDS ORDERED: FAT EMUL IV SCH (17:00)
[2018-11-08] MEDS ORDERED: AMINO ACID 10% IV SCH (17:00)
[2018-11-08] MEDS ORDERED: SMOF TPN IV SCH (17:00)
[2018-11-08 18:44] LABS: BASOPHILS # (AUTO) 0.01 x10^3/uL (0-0.1); BASOPHILS % (AUTO) 0 % (0-1); EOSINOPHILS # (AUTO) 0.25 x10^3/uL (0-0.4); EOSINOPHILS % (AUTO) 7 % (1-7); LYMPHOCYTES # (AUTO) 0.77 x10^3/uL (1-3.4); LYMPHOCYTES % (AUTO) 21 % (22-44); MD NO; MEAN CORPUSCULAR HEMOGLOBIN 32.1 pg (27.5-34.5); MEAN CORPUSCULAR HGB CONC 34.3 g/dL (33.2-36.2); MEAN CORPUSCULAR VOLUME 93.6 fL (81-97); MEAN PLATELET VOLUME 8.8 fL (7.4-10.4); MONOCYTES # (AUTO) 0.36 x10^3/uL (0.2-0.8); MONOCYTES % (AUTO) 10 % (2-9); NEUTROPHILS # (AUTO) 2.34 x10^3/uL (1.8-6.8); NEUTROPHILS % (AUTO) 63 % (42-75); PLATELET COUNT 143 x10^3/uL (130-400); RED BLOOD COUNT 3.39 x10^6/uL (4.38-5.82); RED CELL DISTRIBUTION WIDTH 15.4 % (9.4-14.8)
[2018-11-08 18:52] LABS: ANION GAP 4 mmol/L (5-15); CALCIUM 8.6 mg/dL (8.5-10.1); CHLORIDE 107 mmol/L (98-107); CREATININE 1.34 mg/dL (0.7-1.3)
[2018-11-09] MEDS: MORPHINE SULFATE 4 MG/ML, 1ML IVPush PRN ×4 (03:21→19:50)
[2018-11-09] MEDS: INSULIN REGULAR LOW DOSE QDAY SQ-INSULIN SCH (09:00)
[2018-11-09] MEDS: SODIUM CHLORIDE 0.9% 1,000 ML IV SCH (09:00)
[2018-11-09] MEDS ORDERED: DEXTROSE 70% IV SCH (17:00)
[2018-11-09] MEDS ORDERED: FAT EMUL IV SCH (17:00)
[2018-11-09] MEDS ORDERED: SMOF TPN IV SCH (17:00)
[2018-11-09] MEDS ORDERED: AMINO ACID 10% IV SCH (17:00)
[2018-11-09] MEDS ORDERED: [UNRECOGNIZED DRUG - OTHER] IV SCH (17:00)
[2018-11-09] MEDS: FILTER, DISP 1.2 MICRON FOR TPN/PVN IV PRN (18:40)
[2018-11-10] MEDS: MORPHINE SULFATE 4 MG/ML, 1ML IVPush PRN ×5 (01:12→22:20)
[2018-11-10] MEDS: INSULIN REGULAR LOW DOSE QDAY SQ-INSULIN SCH (08:52)
[2018-11-10 08:55] LABS: MEAN CORPUSCULAR HEMOGLOBIN 31.5 pg (27.5-34.5); MEAN CORPUSCULAR HGB CONC 33.6 g/dL (33.2-36.2); MEAN CORPUSCULAR VOLUME 93.9 fL (81-97); MEAN PLATELET VOLUME 9.3 fL (7.4-10.4); PLATELET COUNT 130 x10^3/uL (130-400); RED BLOOD COUNT 3.31 x10^6/uL (4.38-5.82); RED CELL DISTRIBUTION WIDTH 14.9 % (9.4-14.8)
[2018-11-10 09:34] LABS: BASOPHILS # (AUTO) 0.01 x10^3/uL (0-0.1); BASOPHILS % (AUTO) 1 % (0-1); EOSINOPHILS # (AUTO) 0.19 x10^3/uL (0-0.4); EOSINOPHILS % (AUTO) 7 % (1-7); LYMPHOCYTES # (AUTO) 0.65 x10^3/uL (1-3.4); LYMPHOCYTES % (AUTO) 23 % (22-44); MD SCAN; MONOCYTES # (AUTO) 0.28 x10^3/uL (0.2-0.8); MONOCYTES % (AUTO) 10 % (2-9); NEUTROPHILS # (AUTO) 1.71 x10^3/uL (1.8-6.8); NEUTROPHILS % (AUTO) 60 % (42-75)
[2018-11-10] MEDS: SODIUM CHLORIDE 0.9% 1,000 ML IV SCH (13:39)
[2018-11-10] MEDS ORDERED: FAT EMUL IV SCH (17:00)
[2018-11-10] MEDS ORDERED: SMOF TPN IV SCH (17:00)
[2018-11-10] MEDS ORDERED: [UNRECOGNIZED DRUG - OTHER] IV SCH (17:00)
[2018-11-10] MEDS ORDERED: AMINO ACID 10% IV SCH (17:00)
[2018-11-10] MEDS ORDERED: DEXTROSE 70% IV SCH (17:00)
[2018-11-10] MEDS: FILTER, DISP 1.2 MICRON FOR TPN/PVN IV PRN (18:04)
[2018-11-10 18:40] LABS: ANION GAP 7 mmol/L (5-15); CALCIUM 8.7 mg/dL (8.5-10.1); CHLORIDE 109 mmol/L (98-107); CREATININE 1.33 mg/dL (0.7-1.3)
[2018-11-10 20:07] VITALS: BP 101/65
[2018-11-11] MEDS: MORPHINE SULFATE 4 MG/ML, 1ML IVPush PRN ×4 (03:31→20:12)
[2018-11-11] MEDS: INSULIN REGULAR LOW DOSE QDAY SQ-INSULIN SCH (09:00)
[2018-11-11] MEDS: SODIUM CHLORIDE 0.9% 1,000 ML IV SCH (10:18)
[2018-11-11] MEDS ORDERED: SMOF TPN IV SCH (17:00)
[2018-11-11] MEDS ORDERED: DEXTROSE 70% IV SCH (17:00)
[2018-11-11] MEDS ORDERED: AMINO ACID 10% IV SCH (17:00)
[2018-11-11] MEDS ORDERED: [UNRECOGNIZED DRUG - OTHER] IV SCH (17:00)
[2018-11-11] MEDS ORDERED: FAT EMUL IV SCH (17:00)
[2018-11-11] MEDS: FILTER, DISP 1.2 MICRON FOR TPN/PVN IV PRN (17:55)
[2018-11-12] MEDS: MORPHINE SULFATE 4 MG/ML, 1ML IVPush PRN ×4 (05:28→20:35)
[2018-11-12] MEDS: INSULIN REGULAR LOW DOSE QDAY SQ-INSULIN SCH (09:00)
[2018-11-12 10:27] VITALS: BP 102/66
[2018-11-12] MEDS: SODIUM CHLORIDE 0.9% 1,000 ML IV SCH (14:34)
[2018-11-12 16:10] VITALS: BP 98/62
[2018-11-12 16:13] LABS: ALBUMIN 1.7 g/dL (3.4-5.0); ANION GAP 8 mmol/L (5-15); CALCIUM 6.5 mg/dL (8.5-10.1); CHLORIDE 120 mmol/L (98-107)
[2018-11-12 16:25] LABS: ALANINE AMINOTRANSFERASE 25 U/L (12-78); ALKALINE PHOSPHATASE 220 U/L (45-117); BILIRUBIN,TOTAL 0.8 mg/dL (0.2-1.0); CREATININE 0.95 mg/dL (0.7-1.3); PREALBUMIN 20.2 mg/dL (20.0-40.0); TOTAL PROTEIN 5.1 g/dL (6.4-8.2)
[2018-11-12] MEDS ORDERED: FAT EMUL IV SCH (17:00)
[2018-11-12] MEDS ORDERED: SMOF TPN IV SCH (17:00)
[2018-11-12] MEDS ORDERED: DEXTROSE 70% IV SCH (17:00)
[2018-11-12] MEDS ORDERED: [UNRECOGNIZED DRUG - OTHER] IV SCH (17:00)
[2018-11-12] MEDS ORDERED: AMINO ACID 10% IV SCH (17:00)
[2018-11-12] MEDS: FILTER, DISP 1.2 MICRON FOR TPN/PVN IV PRN (17:17)
[2018-11-13] MEDS: MORPHINE SULFATE 4 MG/ML, 1ML IVPush PRN ×4 (01:22→21:21)
[2018-11-13 01:23] VITALS: BP 98/59
[2018-11-13 08:24] VITALS: BP 101/66
[2018-11-13] MEDS: INSULIN REGULAR LOW DOSE QDAY SQ-INSULIN SCH (08:57)
[2018-11-13] MEDS: SODIUM CHLORIDE 0.9% 1,000 ML IV SCH (11:20)
[2018-11-13 11:26] LABS: BASOPHILS # (AUTO) 0.01 x10^3/uL (0-0.1); BASOPHILS % (AUTO) 0 % (0-1); EOSINOPHILS # (AUTO) 0.22 x10^3/uL (0-0.4); EOSINOPHILS % (AUTO) 6 % (1-7); LYMPHOCYTES # (AUTO) 0.71 x10^3/uL (1-3.4); LYMPHOCYTES % (AUTO) 19 % (22-44); MD NO; MEAN CORPUSCULAR HEMOGLOBIN 31.2 pg (27.5-34.5); MEAN CORPUSCULAR HGB CONC 33.4 g/dL (33.2-36.2); MEAN CORPUSCULAR VOLUME 93.4 fL (81-97); MONOCYTES # (AUTO) 0.43 x10^3/uL (0.2-0.8); MONOCYTES % (AUTO) 11 % (2-9); NEUTROPHILS # (AUTO) 2.43 x10^3/uL (1.8-6.8); NEUTROPHILS % (AUTO) 64 % (42-75); PLATELET COUNT 120 x10^3/uL (130-400); RED BLOOD COUNT 3.48 x10^6/uL (4.38-5.82); RED CELL DISTRIBUTION WIDTH 14.3 % (9.4-14.8)
[2018-11-13 11:39] LABS: ALBUMIN 2.9 g/dL (3.4-5.0); ANION GAP 9 mmol/L (5-15); CALCIUM 8.7 mg/dL (8.5-10.1); CHLORIDE 103 mmol/L (98-107)
[2018-11-13 11:43] LABS: ALANINE AMINOTRANSFERASE 30 U/L (12-78); ALKALINE PHOSPHATASE 296 U/L (45-117); BILIRUBIN,TOTAL 0.5 mg/dL (0.2-1.0); CREATININE 1.35 mg/dL (0.7-1.3); TOTAL PROTEIN 7.3 g/dL (6.4-8.2)
[2018-11-13 14:05] VITALS: BP 95/60
[2018-11-13] MEDS ORDERED: FAT EMUL IV SCH (17:00)
[2018-11-13] MEDS ORDERED: SMOF TPN IV SCH (17:00)
[2018-11-13] MEDS ORDERED: DEXTROSE 70% IV SCH (17:00)
[2018-11-13] MEDS ORDERED: AMINO ACID 10% IV SCH (17:00)
[2018-11-13] MEDS ORDERED: [UNRECOGNIZED DRUG - OTHER] IV SCH (17:00)
[2018-11-13] MEDS: FILTER, DISP 1.2 MICRON FOR TPN/PVN IV PRN (17:27)
[2018-11-13 21:20] VITALS: BP 104/67
[2018-11-14] MEDS: MORPHINE SULFATE 4 MG/ML, 1ML IVPush PRN ×4 (02:42→20:25)
[2018-11-14] MEDS: INSULIN REGULAR LOW DOSE QDAY SQ-INSULIN SCH (07:25)
[2018-11-14 08:49] VITALS: BP 114/74
[2018-11-14] MEDS: SODIUM CHLORIDE 0.9% 1,000 ML IV SCH (08:51)
[2018-11-14 14:20] VITALS: BP 106/68
[2018-11-14] MEDS ORDERED: FILTER, DISP 1.2 MICRON FOR TPN/PVN IV PRN (17:00)
[2018-11-14] MEDS ORDERED: AMINO ACID 10% IV SCH (17:00)
[2018-11-14] MEDS ORDERED: [UNRECOGNIZED DRUG - OTHER] IV SCH (17:00)
[2018-11-14] MEDS ORDERED: SMOF TPN IV SCH (17:00)
[2018-11-14] MEDS ORDERED: DEXTROSE 70% IV SCH (17:00)
[2018-11-14] MEDS ORDERED: FAT EMUL IV SCH (17:00)
[2018-11-15] MEDS: MORPHINE SULFATE 4 MG/ML, 1ML IVPush PRN ×5 (00:34→21:42)
[2018-11-15] MEDS: SODIUM CHLORIDE 0.9% 1,000 ML IV SCH (04:42)
[2018-11-15] MEDS: INSULIN REGULAR LOW DOSE QDAY SQ-INSULIN SCH (07:50)
[2018-11-15] MEDS ORDERED: DEXTROSE 70% IV SCH (17:00)
[2018-11-15] MEDS ORDERED: FILTER, DISP 1.2 MICRON FOR TPN/PVN IV PRN (17:00)
[2018-11-15] MEDS ORDERED: AMINO ACID 10% IV SCH (17:00)
[2018-11-15] MEDS ORDERED: FAT EMUL IV SCH (17:00)
[2018-11-15] MEDS ORDERED: [UNRECOGNIZED DRUG - OTHER] IV SCH (17:00)
[2018-11-15] MEDS ORDERED: SMOF TPN IV SCH (17:00)
[2018-11-15 17:32] VITALS: BP 96/58
[2018-11-15 20:27] VITALS: BP 92/57
[2018-11-16 03:11] VITALS: BP 93/58
[2018-11-16] MEDS: MORPHINE SULFATE 4 MG/ML, 1ML IVPush PRN ×4 (03:11→20:05)
[2018-11-16] MEDS: INSULIN REGULAR LOW DOSE QDAY SQ-INSULIN SCH (09:23)
[2018-11-16 13:02] LABS: ANION GAP 4 mmol/L (5-15); CALCIUM 8.7 mg/dL (8.5-10.1); CHLORIDE 109 mmol/L (98-107); CREATININE 1.38 mg/dL (0.7-1.3)
[2018-11-16] MEDS ORDERED: SMOF TPN IV SCH (17:00)
[2018-11-16] MEDS ORDERED: AMINO ACID 10% IV SCH (17:00)
[2018-11-16] MEDS ORDERED: [UNRECOGNIZED DRUG - OTHER] IV SCH (17:00)
[2018-11-16] MEDS ORDERED: FAT EMUL IV SCH (17:00)
[2018-11-16] MEDS ORDERED: DEXTROSE 70% IV SCH (17:00)
[2018-11-16] MEDS: FILTER, DISP 1.2 MICRON FOR TPN/PVN IV PRN (17:48)
[2018-11-16] MEDS ORDERED: CATHFLO-ALTEPLASE 2 MG/2 ML CATHFLUSH ONE (18:00)
[2018-11-16 18:47] VITALS: BP 92/59
[2018-11-16] MEDS: SODIUM CHLORIDE 0.9% 1,000 ML IV SCH ×2 (20:06)
[2018-11-17] MEDS: MORPHINE SULFATE 4 MG/ML, 1ML IVPush PRN ×5 (00:48→20:24)
[2018-11-17] MEDS: INSULIN REGULAR LOW DOSE QDAY SQ-INSULIN SCH (09:00)
[2018-11-17 11:53] VITALS: BP 111/72
[2018-11-17] MEDS: SODIUM CHLORIDE 0.9% 1,000 ML IV SCH (16:09)
[2018-11-17] MEDS ORDERED: [UNRECOGNIZED DRUG - OTHER] IV SCH (17:00)
[2018-11-17] MEDS ORDERED: SMOF TPN IV SCH (17:00)
[2018-11-17] MEDS ORDERED: FAT EMUL IV SCH (17:00)
[2018-11-17] MEDS ORDERED: DEXTROSE 70% IV SCH (17:00)
[2018-11-17] MEDS ORDERED: AMINO ACID 10% IV SCH (17:00)
[2018-11-18 03:23] VITALS: BP 98/55
[2018-11-18] MEDS: MORPHINE SULFATE 4 MG/ML, 1ML IVPush PRN ×4 (03:28→20:47)
[2018-11-18 08:20] VITALS: BP 100/66
[2018-11-18] MEDS: INSULIN REGULAR LOW DOSE QDAY SQ-INSULIN SCH (09:00)
[2018-11-18] MEDS ORDERED: CATHFLO-ALTEPLASE 2 MG/2 ML CATHFLUSH ONE ×2 (13:00→20:00)
[2018-11-18] MEDS: SODIUM CHLORIDE 0.9% 1,000 ML IV SCH (16:26)
[2018-11-18] MEDS ORDERED: SMOF TPN IV SCH (17:00)
[2018-11-18] MEDS ORDERED: FAT EMUL IV SCH (17:00)
[2018-11-18] MEDS ORDERED: [UNRECOGNIZED DRUG - OTHER] IV SCH (17:00)
[2018-11-18] MEDS ORDERED: AMINO ACID 10% IV SCH (17:00)
[2018-11-18] MEDS ORDERED: DEXTROSE 70% IV SCH (17:00)
[2018-11-19] MEDS: MORPHINE SULFATE 4 MG/ML, 1ML IVPush PRN ×4 (03:47→20:18)
[2018-11-19] MEDS: INSULIN REGULAR LOW DOSE QDAY SQ-INSULIN SCH ×2 (09:00→19:22)
[2018-11-19 10:22] VITALS: BP 99/62
[2018-11-19 15:34] VITALS: BP 95/60
[2018-11-19] MEDS: SODIUM CHLORIDE 0.9% 1,000 ML IV SCH (15:36)
[2018-11-19] MEDS ORDERED: DEXTROSE 70% IV SCH (17:00)
[2018-11-19] MEDS ORDERED: [UNRECOGNIZED DRUG - OTHER] IV SCH (17:00)
[2018-11-19] MEDS ORDERED: AMINO ACID 10% IV SCH (17:00)
[2018-11-19] MEDS ORDERED: FAT EMUL IV SCH (17:00)
[2018-11-19] MEDS ORDERED: SMOF TPN IV SCH (17:00)
[2018-11-19] MEDS: FILTER, DISP 1.2 MICRON FOR TPN/PVN IV PRN (17:21)
[2018-11-19 20:17] VITALS: BP 91/56
[2018-11-20] MEDS: MORPHINE SULFATE 4 MG/ML, 1ML IVPush PRN ×4 (02:55→20:47)
[2018-11-20 08:32] VITALS: BP 105/71
[2018-11-20] MEDS: SODIUM CHLORIDE 0.9% 1,000 ML IV SCH (08:33)
[2018-11-20 14:12] LABS: ANION GAP 7 mmol/L (5-15); CALCIUM 8.8 mg/dL (8.5-10.1); CHLORIDE 111 mmol/L (98-107); CREATININE 1.25 mg/dL (0.7-1.3)
[2018-11-20 15:08] VITALS: BP 95/59
[2018-11-20] MEDS ORDERED: [UNRECOGNIZED DRUG - OTHER] IV SCH (17:00)
[2018-11-20] MEDS ORDERED: AMINO ACID 10% IV SCH ×2 (17:00)
[2018-11-20] MEDS ORDERED: [UNRECOGNIZED DRUG - OTHER] IV SCH (17:00)
[2018-11-20] MEDS ORDERED: DEXTROSE 70% IV SCH ×2 (17:00)
[2018-11-20] MEDS ORDERED: SMOF TPN IV SCH ×2 (17:00)
[2018-11-20] MEDS ORDERED: FAT EMUL IV SCH ×2 (17:00)
[2018-11-21] MEDS: MORPHINE SULFATE 4 MG/ML, 1ML IVPush PRN ×4 (03:56→20:32)
[2018-11-21] MEDS: SODIUM CHLORIDE 0.9% 1,000 ML IV SCH ×2 (03:57→21:14)
[2018-11-21] MEDS: INSULIN REGULAR LOW DOSE QDAY SQ-INSULIN SCH (09:00)
[2018-11-21 12:40] VITALS: BP 93/57
[2018-11-21] MEDS ORDERED: AMINO ACID 10% IV SCH (17:00)
[2018-11-21] MEDS ORDERED: SMOF TPN IV SCH (17:00)
[2018-11-21] MEDS ORDERED: FAT EMUL IV SCH (17:00)
[2018-11-21] MEDS ORDERED: DEXTROSE 70% IV SCH (17:00)
[2018-11-21] MEDS ORDERED: [UNRECOGNIZED DRUG - OTHER] IV SCH (17:00)
[2018-11-22] MEDS: MORPHINE SULFATE 4 MG/ML, 1ML IVPush PRN ×5 (02:04→20:49)
[2018-11-22 02:07] VITALS: BP 98/62
[2018-11-22 06:30] LABS: ANION GAP 6 mmol/L (5-15); CALCIUM 8.5 mg/dL (8.5-10.1); CHLORIDE 107 mmol/L (98-107)
[2018-11-22 06:37] LABS: CREATININE 1.27 mg/dL (0.7-1.3); PREALBUMIN 27.4 mg/dL (20.0-40.0); TRIGLYCERIDES 82 mg/dL (50-200)
[2018-11-22] MEDS: INSULIN REGULAR LOW DOSE QDAY SQ-INSULIN SCH (09:00)
[2018-11-22] MEDS ORDERED: [UNRECOGNIZED DRUG - OTHER] IV SCH (17:00)
[2018-11-22] MEDS ORDERED: AMINO ACID 10% IV SCH (17:00)
[2018-11-22] MEDS ORDERED: DEXTROSE 70% IV SCH (17:00)
[2018-11-22] MEDS ORDERED: SMOF TPN IV SCH (17:00)
[2018-11-22] MEDS ORDERED: FAT EMUL IV SCH (17:00)
[2018-11-23 01:58] VITALS: BP 91/54
[2018-11-23] MEDS: MORPHINE SULFATE 4 MG/ML, 1ML IVPush PRN ×5 (02:13→22:44)
[2018-11-23] MEDS: INSULIN REGULAR LOW DOSE QDAY SQ-INSULIN SCH (09:00)
[2018-11-23 09:36] VITALS: BP 103/68
[2018-11-23 14:04] LABS: ANION GAP 7 mmol/L (5-15); CHLORIDE 107 mmol/L (98-107); CREATININE 1.32 mg/dL (0.7-1.3)
[2018-11-23] MEDS ORDERED: [UNRECOGNIZED DRUG - OTHER] IV SCH (17:00)
[2018-11-23] MEDS ORDERED: DEXTROSE 70% IV SCH (17:00)
[2018-11-23] MEDS ORDERED: AMINO ACID 10% IV SCH (17:00)
[2018-11-23] MEDS ORDERED: FAT EMUL IV SCH (17:00)
[2018-11-23] MEDS ORDERED: SMOF TPN IV SCH (17:00)
[2018-11-24] MEDS: MORPHINE SULFATE 4 MG/ML, 1ML IVPush PRN ×4 (05:17→19:29)
[2018-11-24] MEDS: INSULIN REGULAR LOW DOSE QDAY SQ-INSULIN SCH (07:05)
[2018-11-24 12:29] LABS: ANION GAP 7 mmol/L (5-15); CALCIUM 9.1 mg/dL (8.5-10.1); CHLORIDE 105 mmol/L (98-107); CREATININE 1.33 mg/dL (0.7-1.3)
[2018-11-24] MEDS ORDERED: DEXTROSE 70% IV SCH (17:00)
[2018-11-24] MEDS ORDERED: SMOF TPN IV SCH (17:00)
[2018-11-24] MEDS ORDERED: [UNRECOGNIZED DRUG - OTHER] IV SCH (17:00)
[2018-11-24] MEDS ORDERED: FAT EMUL IV SCH (17:00)
[2018-11-24] MEDS ORDERED: AMINO ACID 10% IV SCH (17:00)
[2018-11-25] MEDS: MORPHINE SULFATE 4 MG/ML, 1ML IVPush PRN ×5 (01:46→21:57)
[2018-11-25] MEDS: INSULIN REGULAR LOW DOSE QDAY SQ-INSULIN SCH (09:00)
[2018-11-25 12:41] VITALS: BP 93/59
[2018-11-25] MEDS ORDERED: DEXTROSE 70% IV SCH ×2 (17:00)
[2018-11-25] MEDS ORDERED: SMOF TPN IV SCH ×2 (17:00)
[2018-11-25] MEDS ORDERED: FAT EMUL IV SCH ×2 (17:00)
[2018-11-25] MEDS ORDERED: AMINO ACID 10% IV SCH ×2 (17:00)
[2018-11-25] MEDS ORDERED: [UNRECOGNIZED DRUG - OTHER] IV SCH (17:00)
[2018-11-25] MEDS ORDERED: [UNRECOGNIZED DRUG - OTHER] IV SCH (17:00)
[2018-11-26] MEDS: MORPHINE SULFATE 4 MG/ML, 1ML IVPush PRN ×4 (03:49→23:05)
[2018-11-26] MEDS: INSULIN REGULAR LOW DOSE QDAY SQ-INSULIN SCH (09:00)
[2018-11-26 12:47] LABS: ALBUMIN 3.2 g/dL (3.4-5.0); ANION GAP 8 mmol/L (5-15); CALCIUM 9.1 mg/dL (8.5-10.1); CHLORIDE 102 mmol/L (98-107)
[2018-11-26 12:55] LABS: ALANINE AMINOTRANSFERASE 37 U/L (12-78); ALKALINE PHOSPHATASE 364 U/L (45-117); BILIRUBIN,TOTAL 0.9 mg/dL (0.2-1.0); CREATININE 1.42 mg/dL (0.7-1.3); TOTAL PROTEIN 7.8 g/dL (6.4-8.2)
[2018-11-26 15:54] VITALS: BP 104/68
[2018-11-26] MEDS: ACETAMINOPHEN 325 MG TABLET PO PRN (16:26)
[2018-11-26 16:55] LABS: BASOPHILS # (AUTO) 0.01 x10^3/uL (0-0.1); BASOPHILS % (AUTO) 0 % (0-1); EOSINOPHILS # (AUTO) 0.01 x10^3/uL (0-0.4); EOSINOPHILS % (AUTO) 0 % (1-7); LYMPHOCYTES # (AUTO) 0.19 x10^3/uL (1-3.4); LYMPHOCYTES % (AUTO) 4 % (22-44); MD NO; MEAN CORPUSCULAR HGB CONC 35.2 g/dL (33.2-36.2); MEAN CORPUSCULAR VOLUME 90.9 fL (81-97); MEAN PLATELET VOLUME 8.4 fL (7.4-10.4); MONOCYTES # (AUTO) 0.31 x10^3/uL (0.2-0.8); MONOCYTES % (AUTO) 7 % (2-9); NEUTROPHILS # (AUTO) 4.29 x10^3/uL (1.8-6.8); NEUTROPHILS % (AUTO) 89 % (42-75); PLATELET COUNT 138 x10^3/uL (130-400); RED BLOOD COUNT 3.66 x10^6/uL (4.38-5.82); RED CELL DISTRIBUTION WIDTH 12.6 % (9.4-14.8)
[2018-11-26] MEDS ORDERED: SMOF TPN IV SCH (17:00)
[2018-11-26] MEDS ORDERED: AMINO ACID 10% IV SCH (17:00)
[2018-11-26] MEDS ORDERED: [UNRECOGNIZED DRUG - OTHER] IV SCH (17:00)
[2018-11-26] MEDS ORDERED: FAT EMUL IV SCH (17:00)
[2018-11-26] MEDS ORDERED: DEXTROSE 70% IV SCH (17:00)
[2018-11-26 17:06] LABS: ALBUMIN 3.2 g/dL (3.4-5.0); ANION GAP 9 mmol/L (5-15); CALCIUM 8.7 mg/dL (8.5-10.1); CHLORIDE 102 mmol/L (98-107)
[2018-11-26 17:09] LABS: ALANINE AMINOTRANSFERASE 45 U/L (12-78); ALKALINE PHOSPHATASE 398 U/L (45-117); BILIRUBIN,TOTAL 1.2 mg/dL (0.2-1.0); CREATININE 1.48 mg/dL (0.7-1.3); TOTAL PROTEIN 7.8 g/dL (6.4-8.2)
[2018-11-26 17:21] LABS: MICROSCOPIC AUTO
[2018-11-26] MEDS: ONDANSETRON 2MG/ML, 2ML IVPush PRN (17:22)
[2018-11-26 17:28] LABS: CULTURE INDICATED? NO
[2018-11-26] MEDS ORDERED: SODIUM CHLORIDE 0.9% 1,000ML IVBOLUS ONE (17:45)
[2018-11-26 18:09] VITALS: BP 85/48
[2018-11-26 20:08] VITALS: BP 89/48
[2018-11-27] MEDS: MORPHINE SULFATE 4 MG/ML, 1ML IVPush PRN ×5 (02:49→22:05)
[2018-11-27 07:54] VITALS: BP 105/65
[2018-11-27] MEDS: INSULIN REGULAR LOW DOSE QDAY SQ-INSULIN SCH (09:00)
[2018-11-27 13:00] VITALS: BP 101/68
[2018-11-27] MEDS ORDERED: SMOF TPN IV SCH (17:00)
[2018-11-27] MEDS ORDERED: DEXTROSE 70% IV SCH (17:00)
[2018-11-27] MEDS ORDERED: AMINO ACID 10% IV SCH (17:00)
[2018-11-27] MEDS ORDERED: [UNRECOGNIZED DRUG - OTHER] IV SCH (17:00)
[2018-11-27] MEDS ORDERED: FAT EMUL IV SCH (17:00)
[2018-11-27] MEDS ORDERED: AMPICILLIN/SULBACTAM 3 GM in SODIUM CHLORIDE 0.9% 100 ML IV SCH (18:30)
[2018-11-27] MEDS ORDERED: metroNIDAZOLE 500 MG TABLET PO SCH (19:30)
[2018-11-27] MEDS: DOXYCYCLINE 100MG TABLET PO SCH ×2 (21:00→22:05)
[2018-11-27 21:52] VITALS: BP 112/66
[2018-11-27] MEDS: CEFTRIAXONE PMX 1GM/50ML 50 ML IV SCH (22:05)
[2018-11-27] MEDS: ACETAMINOPHEN 325 MG TABLET PO PRN (22:06)
[2018-11-27] MEDS: METRONIDAZOLE PMX 500MG/100ML 100 ML IV SCH (23:25)
[2018-11-28 04:53] VITALS: BP 116/70
[2018-11-28] MEDS: MORPHINE SULFATE 4 MG/ML, 1ML IVPush PRN ×4 (05:01→19:37)
[2018-11-28] MEDS: ACETAMINOPHEN 325 MG TABLET PO PRN (05:01)
[2018-11-28] MEDS: METRONIDAZOLE PMX 500MG/100ML 100 ML IV SCH ×3 (08:17→23:20)
[2018-11-28] MEDS: INSULIN REGULAR LOW DOSE QDAY SQ-INSULIN SCH (09:00)
[2018-11-28 10:08] VITALS: BP 96/61
[2018-11-28] MEDS: DOXYCYCLINE 100MG TABLET PO SCH ×2 (10:11→22:10)
[2018-11-28] MEDS: ONDANSETRON 2MG/ML, 2ML IVPush PRN (13:15)
[2018-11-28 13:26] LABS: ANION GAP 9 mmol/L (5-15); CALCIUM 8.9 mg/dL (8.5-10.1); CHLORIDE 100 mmol/L (98-107); CREATININE 1.31 mg/dL (0.7-1.3)
[2018-11-28 14:50] VITALS: BP 95/65
[2018-11-28] MEDS ORDERED: FAT EMUL IV SCH (17:00)
[2018-11-28] MEDS ORDERED: DEXTROSE 70% IV SCH (17:00)
[2018-11-28] MEDS ORDERED: AMINO ACID 10% IV SCH (17:00)
[2018-11-28] MEDS ORDERED: [UNRECOGNIZED DRUG - OTHER] IV SCH (17:00)
[2018-11-28] MEDS ORDERED: SMOF TPN IV SCH (17:00)
[2018-11-28] MEDS: CEFTRIAXONE PMX 1GM/50ML 50 ML IV SCH (22:10)
[2018-11-29] MEDS: MORPHINE SULFATE 4 MG/ML, 1ML IVPush PRN ×4 (00:37→22:35)
[2018-11-29 01:05] VITALS: BP 100/63
[2018-11-29] MEDS: METRONIDAZOLE PMX 500MG/100ML 100 ML IV SCH ×3 (07:41→23:24)
[2018-11-29 07:48] VITALS: BP 96/63
[2018-11-29] MEDS: DOXYCYCLINE 100MG TABLET PO SCH ×2 (07:53→22:34)
[2018-11-29] MEDS ORDERED: POTASSIUM CHLORIDE 20 MEQ TAB.ER.PRT PO ONE ×2 (08:00)
[2018-11-29] MEDS: INSULIN REGULAR LOW DOSE QDAY SQ-INSULIN SCH (08:18)
[2018-11-29] MEDS ORDERED: POTASSIUM CHLORIDE 10% 40 MEQ/30 ML UDC PO ONE (11:00)
[2018-11-29] MEDS ORDERED: POTASSIUM CHLORIDE 20 MEQ TAB.ER.PRT ONE (13:43)
[2018-11-29 14:26] LABS: MEAN CORPUSCULAR HEMOGLOBIN 31.6 pg (27.5-34.5); MEAN CORPUSCULAR HGB CONC 34.1 g/dL (33.2-36.2); MEAN CORPUSCULAR VOLUME 92.8 fL (81-97); MEAN PLATELET VOLUME 9.4 fL (7.4-10.4); PLATELET COUNT 104 x10^3/uL (130-400); RED BLOOD COUNT 3.23 x10^6/uL (4.38-5.82); RED CELL DISTRIBUTION WIDTH 12.9 % (9.4-14.8)
[2018-11-29 14:36] LABS: ALANINE AMINOTRANSFERASE 33 U/L (12-78); ALBUMIN 2.7 g/dL (3.4-5.0); ANION GAP 6 mmol/L (5-15); CALCIUM 9.1 mg/dL (8.5-10.1); CHLORIDE 103 mmol/L (98-107); CREATININE 1.24 mg/dL (0.7-1.3)
[2018-11-29 14:41] LABS: ALKALINE PHOSPHATASE 268 U/L (45-117); BILIRUBIN,TOTAL 0.6 mg/dL (0.2-1.0); PREALBUMIN 18.2 mg/dL (20.0-40.0); TOTAL PROTEIN 6.8 g/dL (6.4-8.2)
[2018-11-29 14:55] VITALS: BP 95/57
[2018-11-29 15:11] LABS: BASOPHILS % (AUTO) 0 % (0-1); EOSINOPHILS # (AUTO) 0.04 x10^3/uL (0-0.4); EOSINOPHILS % (AUTO) 2 % (1-7); LYMPHOCYTES # (AUTO) 0.45 x10^3/uL (1-3.4); LYMPHOCYTES % (AUTO) 19 % (22-44); MD SCAN; MONOCYTES # (AUTO) 0.38 x10^3/uL (0.2-0.8); MONOCYTES % (AUTO) 17 % (2-9); NEUTROPHILS # (AUTO) 1.43 x10^3/uL (1.8-6.8); NEUTROPHILS % (AUTO) 62 % (42-75)
[2018-11-29] MEDS ORDERED: [UNRECOGNIZED DRUG - OTHER] IV SCH (17:00)
[2018-11-29] MEDS ORDERED: DEXTROSE 70% IV SCH (17:00)
[2018-11-29] MEDS ORDERED: FAT EMUL IV SCH (17:00)
[2018-11-29] MEDS ORDERED: AMINO ACID 10% IV SCH (17:00)
[2018-11-29] MEDS ORDERED: SMOF TPN IV SCH (17:00)
[2018-11-29] MEDS: CEFTRIAXONE PMX 1GM/50ML 50 ML IV SCH (22:35)
[2018-11-29 22:45] VITALS: BP 97/61
[2018-11-30] MEDS: MORPHINE SULFATE 4 MG/ML, 1ML IVPush PRN ×4 (05:24→21:17)
[2018-11-30] MEDS: METRONIDAZOLE PMX 500MG/100ML 100 ML IV SCH ×3 (07:42→23:07)
[2018-11-30] MEDS: INSULIN REGULAR LOW DOSE QDAY SQ-INSULIN SCH (09:00)
[2018-11-30] MEDS: DOXYCYCLINE 100MG TABLET PO SCH ×2 (12:12→21:16)
[2018-11-30 16:00] VITALS: BP 95/52
[2018-11-30] MEDS: ONDANSETRON 2MG/ML, 2ML IVPush PRN (16:36)
[2018-11-30] MEDS ORDERED: AMINO ACID 10% IV SCH (17:00)
[2018-11-30] MEDS ORDERED: SMOF TPN IV SCH (17:00)
[2018-11-30] MEDS ORDERED: FAT EMUL IV SCH (17:00)
[2018-11-30] MEDS ORDERED: DEXTROSE 70% IV SCH (17:00)
[2018-11-30] MEDS ORDERED: [UNRECOGNIZED DRUG - OTHER] IV SCH (17:00)
[2018-11-30 21:14] VITALS: BP 101/64
[2018-11-30] MEDS: CEFTRIAXONE PMX 1GM/50ML 50 ML IV SCH (21:17)
[2018-12-01] MEDS: MORPHINE SULFATE 4 MG/ML, 1ML IVPush PRN ×4 (01:45→20:26)
[2018-12-01] MEDS: METRONIDAZOLE PMX 500MG/100ML 100 ML IV SCH ×3 (08:18→22:56)
[2018-12-01] MEDS: INSULIN REGULAR LOW DOSE QDAY SQ-INSULIN SCH (09:00)
[2018-12-01] MEDS ORDERED: DEXTROSE 70% IV SCH ×2 (09:30→17:00)
[2018-12-01] MEDS ORDERED: [UNRECOGNIZED DRUG - OTHER] IV SCH ×2 (09:30→17:00)
[2018-12-01] MEDS ORDERED: FAT EMUL IV SCH ×2 (09:30→17:00)
[2018-12-01] MEDS ORDERED: AMINO ACID 10% IV SCH ×2 (09:30→17:00)
[2018-12-01] MEDS ORDERED: SMOF TPN IV SCH ×2 (09:30→17:00)
[2018-12-01 12:33] VITALS: BP 100/63
[2018-12-01] MEDS: DOXYCYCLINE 100MG TABLET PO SCH ×2 (12:51→20:26)
[2018-12-01] MEDS: ONDANSETRON 2MG/ML, 2ML IVPush PRN (16:29)
[2018-12-01] MEDS: FILTER, DISP 1.2 MICRON FOR TPN/PVN IV PRN (16:37)
[2018-12-01] MEDS: CEFTRIAXONE PMX 1GM/50ML 50 ML IV SCH (22:03)
[2018-12-02 02:11] VITALS: BP 96/61
[2018-12-02] MEDS: MORPHINE SULFATE 4 MG/ML, 1ML IVPush PRN ×5 (02:13→22:46)
[2018-12-02] MEDS: INSULIN REGULAR LOW DOSE QDAY SQ-INSULIN SCH (09:00)
[2018-12-02 09:06] VITALS: BP 102/62
[2018-12-02] MEDS: METRONIDAZOLE PMX 500MG/100ML 100 ML IV SCH ×3 (09:12→22:46)
[2018-12-02] MEDS: DOXYCYCLINE 100MG TABLET PO SCH ×2 (09:12→21:36)
[2018-12-02 15:48] LABS: ANION GAP 6 mmol/L (5-15); CALCIUM 8.6 mg/dL (8.5-10.1); CHLORIDE 105 mmol/L (98-107); CREATININE 1.19 mg/dL (0.7-1.3)
[2018-12-02 15:55] LABS: PREALBUMIN 18.9 mg/dL (20.0-40.0)
[2018-12-02] MEDS: ONDANSETRON 2MG/ML, 2ML IVPush PRN (16:26)
[2018-12-02] MEDS ORDERED: SMOF TPN IV SCH (17:00)
[2018-12-02] MEDS ORDERED: FAT EMUL IV SCH (17:00)
[2018-12-02] MEDS ORDERED: AMINO ACID 10% IV SCH (17:00)
[2018-12-02] MEDS ORDERED: [UNRECOGNIZED DRUG - OTHER] IV SCH (17:00)
[2018-12-02] MEDS ORDERED: DEXTROSE 70% IV SCH (17:00)
[2018-12-02] MEDS: FILTER, DISP 1.2 MICRON FOR TPN/PVN IV PRN (17:54)
[2018-12-02] MEDS: CEFTRIAXONE PMX 1GM/50ML 50 ML IV SCH (21:36)
[2018-12-02 22:30] VITALS: BP 103/67
[2018-12-03 04:56] VITALS: BP 91/59
[2018-12-03] MEDS: MORPHINE SULFATE 4 MG/ML, 1ML IVPush PRN ×4 (04:58→21:27)
[2018-12-03] MEDS: METRONIDAZOLE PMX 500MG/100ML 100 ML IV SCH ×3 (06:30→22:51)
[2018-12-03] MEDS: INSULIN REGULAR LOW DOSE QDAY SQ-INSULIN SCH (08:46)
[2018-12-03] MEDS: DOXYCYCLINE 100MG TABLET PO SCH ×2 (09:21→21:27)
[2018-12-03] MEDS: ONDANSETRON 2MG/ML, 2ML IVPush PRN (15:04)
[2018-12-03] MEDS ORDERED: AMINO ACID 10% IV SCH (17:00)
[2018-12-03] MEDS ORDERED: FAT EMUL IV SCH (17:00)
[2018-12-03] MEDS ORDERED: [UNRECOGNIZED DRUG - OTHER] IV SCH (17:00)
[2018-12-03] MEDS ORDERED: SMOF TPN IV SCH (17:00)
[2018-12-03] MEDS ORDERED: DEXTROSE 70% IV SCH (17:00)
[2018-12-03] MEDS: FILTER, DISP 1.2 MICRON FOR TPN/PVN IV PRN (17:48)
[2018-12-03] MEDS: CEFTRIAXONE PMX 1GM/50ML 50 ML IV SCH (21:27)
[2018-12-03 21:28] VITALS: BP 94/63
[2018-12-04 04:54] VITALS: BP 91/59
[2018-12-04] MEDS: MORPHINE SULFATE 4 MG/ML, 1ML IVPush PRN ×3 (04:56→17:59)
[2018-12-04] MEDS: METRONIDAZOLE PMX 500MG/100ML 100 ML IV SCH (06:33)
[2018-12-04] MEDS: INSULIN REGULAR LOW DOSE QDAY SQ-INSULIN SCH (09:00)
[2018-12-04 13:23] VITALS: BP 97/63
[2018-12-04] MEDS ORDERED: AMINO ACID 10% IV SCH (17:00)
[2018-12-04] MEDS ORDERED: SMOF TPN IV SCH (17:00)
[2018-12-04] MEDS ORDERED: FAT EMUL IV SCH (17:00)
[2018-12-04] MEDS ORDERED: [UNRECOGNIZED DRUG - OTHER] IV SCH (17:00)
[2018-12-04] MEDS ORDERED: DEXTROSE 70% IV SCH (17:00)
[2018-12-04 17:58] VITALS: BP 94/61
[2018-12-04] MEDS: FILTER, DISP 1.2 MICRON FOR TPN/PVN IV PRN (17:59)
[2018-12-05 03:15] VITALS: BP 107/69
[2018-12-05] MEDS: MORPHINE SULFATE 4 MG/ML, 1ML IVPush PRN ×4 (03:17→19:35)
[2018-12-05] MEDS: INSULIN REGULAR LOW DOSE QDAY SQ-INSULIN SCH (09:00)
[2018-12-05] MEDS ORDERED: CATHFLO-ALTEPLASE 2 MG/2 ML CATHFLUSH ONE (10:30)
[2018-12-05 15:38] LABS: ANION GAP 7 mmol/L (5-15); CALCIUM 8.7 mg/dL (8.5-10.1); CHLORIDE 106 mmol/L (98-107)
[2018-12-05] MEDS ORDERED: FILTER, DISP 1.2 MICRON FOR TPN/PVN IV PRN (17:00)
[2018-12-05] MEDS ORDERED: DEXTROSE 70% IV SCH (17:00)
[2018-12-05] MEDS ORDERED: AMINO ACID 10% IV SCH (17:00)
[2018-12-05] MEDS ORDERED: FAT EMUL IV SCH (17:00)
[2018-12-05] MEDS ORDERED: SMOF TPN IV SCH (17:00)
[2018-12-05] MEDS ORDERED: [UNRECOGNIZED DRUG - OTHER] IV SCH (17:00)
[2018-12-06] MEDS: MORPHINE SULFATE 4 MG/ML, 1ML IVPush PRN ×5 (00:55→23:00)
[2018-12-06 02:00] VITALS: BP 108/68
[2018-12-06] MEDS: INSULIN REGULAR LOW DOSE QDAY SQ-INSULIN SCH (07:19)
[2018-12-06] MEDS ORDERED: FILTER, DISP 1.2 MICRON FOR TPN/PVN IV PRN ×2 (09:30→17:00)
[2018-12-06] MEDS: ONDANSETRON 2MG/ML, 2ML IVPush PRN ×2 (10:50→23:00)
[2018-12-06] MEDS ORDERED: morphine SULFATE 10 MG/ML, 1ML ONE (14:46)
[2018-12-06 14:52] VITALS: BP 93/59
[2018-12-06] MEDS ORDERED: [UNRECOGNIZED DRUG - OTHER] IV SCH (17:00)
[2018-12-06] MEDS ORDERED: FAT EMUL IV SCH (17:00)
[2018-12-06] MEDS ORDERED: AMINO ACID 10% IV SCH (17:00)
[2018-12-06] MEDS ORDERED: DEXTROSE 70% IV SCH (17:00)
[2018-12-06] MEDS ORDERED: SMOF TPN IV SCH (17:00)
[2018-12-07] MEDS: MORPHINE SULFATE 4 MG/ML, 1ML IVPush PRN ×4 (03:38→20:50)
[2018-12-07 03:40] VITALS: BP 100/64
[2018-12-07] MEDS: ACETAMINOPHEN 325 MG TABLET PO PRN (03:43)
[2018-12-07] MEDS: ONDANSETRON 2MG/ML, 2ML IVPush PRN ×2 (05:07→09:06)
[2018-12-07] MEDS: INSULIN REGULAR LOW DOSE QDAY SQ-INSULIN SCH (07:27)
[2018-12-07 08:00] VITALS: BP 87/51
[2018-12-07 11:34] LABS: ALBUMIN 2.6 g/dL (3.4-5.0); ANION GAP 7 mmol/L (5-15); CALCIUM 8.8 mg/dL (8.5-10.1); CHLORIDE 104 mmol/L (98-107)
[2018-12-07 11:39] LABS: BASOPHILS % (AUTO) 0 % (0-1); EOSINOPHILS # (AUTO) 0.02 x10^3/uL (0-0.4); EOSINOPHILS % (AUTO) 1 % (1-7); LYMPHOCYTES # (AUTO) 0.25 x10^3/uL (1-3.4); LYMPHOCYTES % (AUTO) 9 % (22-44); MD SCAN; MEAN CORPUSCULAR HEMOGLOBIN 31.3 pg (27.5-34.5); MEAN CORPUSCULAR HGB CONC 33.6 g/dL (33.2-36.2); MEAN CORPUSCULAR VOLUME 93.1 fL (81-97); MEAN PLATELET VOLUME 10.1 fL (7.4-10.4); MONOCYTES # (AUTO) 0.32 x10^3/uL (0.2-0.8); MONOCYTES % (AUTO) 11 % (2-9); NEUTROPHILS % (AUTO) 80 % (42-75); PLATELET COUNT 99 x10^3/uL (130-400); RED BLOOD COUNT 3.06 x10^6/uL (4.38-5.82)
[2018-12-07 11:40] LABS: ALANINE AMINOTRANSFERASE 18 U/L (12-78); ALKALINE PHOSPHATASE 182 U/L (45-117); BILIRUBIN,TOTAL 0.7 mg/dL (0.2-1.0); CREATININE 1.48 mg/dL (0.7-1.3); TOTAL PROTEIN 6.7 g/dL (6.4-8.2)
[2018-12-07 12:33] VITALS: BP 82/48
[2018-12-07] MEDS ORDERED: SODIUM CHLORIDE 0.9% 500 ML IV SCH (13:00)
[2018-12-07] MEDS ORDERED: SODIUM CHLORIDE 0.9% 500 ML IV ONE (13:30)
[2018-12-07 15:35] VITALS: BP 93/60
[2018-12-07] MEDS ORDERED: SMOF TPN IV SCH (17:00)
[2018-12-07] MEDS ORDERED: FAT EMUL IV SCH (17:00)
[2018-12-07] MEDS ORDERED: AMINO ACID 10% IV SCH (17:00)
[2018-12-07] MEDS ORDERED: [UNRECOGNIZED DRUG - OTHER] IV SCH (17:00)
[2018-12-07] MEDS ORDERED: FILTER, DISP 1.2 MICRON FOR TPN/PVN IV PRN (17:00)
[2018-12-07] MEDS ORDERED: DEXTROSE 70% IV SCH (17:00)
[2018-12-07 20:50] VITALS: BP 99/60
[2018-12-08] MEDS: MORPHINE SULFATE 4 MG/ML, 1ML IVPush PRN ×5 (01:37→21:09)
[2018-12-08 01:38] VITALS: BP 110/70
[2018-12-08] MEDS: ONDANSETRON 2MG/ML, 2ML IVPush PRN ×2 (05:54→11:26)
[2018-12-08] MEDS: INSULIN REGULAR LOW DOSE QDAY SQ-INSULIN SCH (09:00)
[2018-12-08 11:18] VITALS: BP 99/66
[2018-12-08 13:49] LABS: MEAN CORPUSCULAR HGB CONC 33.4 g/dL (33.2-36.2); MEAN CORPUSCULAR VOLUME 92.7 fL (81-97); MEAN PLATELET VOLUME 10.1 fL (7.4-10.4); PLATELET COUNT 105 x10^3/uL (130-400); RED BLOOD COUNT 2.86 x10^6/uL (4.38-5.82); RED CELL DISTRIBUTION WIDTH 13.2 % (9.4-14.8)
[2018-12-08 14:39] LABS: MD YES
[2018-12-08 14:44] LABS: BAND#(MANUAL) 0.03 x10^3/uL; BANDS%(MANUAL) 1 % (0-7); EOS#(MANUAL) 0.08 x10^3/uL (0.0-0.4); EOS% (MANUAL) 3 % (1-7); LYMPH#(MANUAL) 0.27 x10^3/uL (1-3.4); LYMPHS% (MANUAL) 10 % (22-44); MONOS#(MANUAL) 0.46 x10^3/uL (0.3-2.7); MONOS% (MANUAL) 17 % (2-9); SEG#(MANUAL) 1.86 x10^3/uL (1.8-6.8); SEGS% (MANUAL) 69 % (42-75)
[2018-12-08 14:46] LABS: <PLATELET ESTIMATE> DECREASED; <PLT MORPHOLOGY> NORMAL PLT MORPH; ANISOCYTOSIS 1+
[2018-12-08 15:18] LABS: ALANINE AMINOTRANSFERASE 24 U/L (12-78); ALBUMIN 2.6 g/dL (3.4-5.0); ANION GAP 5 mmol/L (5-15); CALCIUM 8.9 mg/dL (8.5-10.1); CHLORIDE 104 mmol/L (98-107); CREATININE 1.45 mg/dL (0.7-1.3)
[2018-12-08 15:20] LABS: ALKALINE PHOSPHATASE 217 U/L (45-117); BILIRUBIN,TOTAL 0.8 mg/dL (0.2-1.0); TOTAL PROTEIN 6.9 g/dL (6.4-8.2)
[2018-12-08] MEDS ORDERED: SMOF TPN IV SCH ×2 (16:00→17:00)
[2018-12-08] MEDS ORDERED: FAT EMUL IV SCH ×2 (16:00→17:00)
[2018-12-08] MEDS ORDERED: [UNRECOGNIZED DRUG - OTHER] IV SCH (16:00)
[2018-12-08] MEDS ORDERED: SODIUM CHLORIDE 0.45% 1,000 ML IV SCH (16:00)
[2018-12-08] MEDS ORDERED: DEXTROSE 70% IV SCH ×2 (16:00→17:00)
[2018-12-08] MEDS ORDERED: AMINO ACID 10% IV SCH ×2 (16:00→17:00)
[2018-12-08] MEDS ORDERED: [UNRECOGNIZED DRUG - OTHER] IV SCH (17:00)
[2018-12-08] MEDS ORDERED: CATHFLO-ALTEPLASE 2 MG/2 ML CATHFLUSH ONE (21:00)
[2018-12-08 21:12] VITALS: BP 92/60
[2018-12-09] MEDS: MORPHINE SULFATE 4 MG/ML, 1ML IVPush PRN ×2 (03:33→09:40)
[2018-12-09] MEDS: INSULIN REGULAR LOW DOSE QDAY SQ-INSULIN SCH (09:00)
[2018-12-09 09:40] VITALS: BP 106/69
[2018-12-09 10:31] LABS: MEAN CORPUSCULAR HEMOGLOBIN 31.6 pg (27.5-34.5); MEAN CORPUSCULAR HGB CONC 34.2 g/dL (33.2-36.2); MEAN CORPUSCULAR VOLUME 92.6 fL (81-97); MEAN PLATELET VOLUME 10.2 fL (7.4-10.4); PLATELET COUNT 102 x10^3/uL (130-400); RED BLOOD COUNT 2.96 x10^6/uL (4.38-5.82); RED CELL DISTRIBUTION WIDTH 12.8 % (9.4-14.8)
[2018-12-09 10:41] LABS: ALBUMIN 2.5 g/dL (3.4-5.0); ANION GAP 7 mmol/L (5-15); CALCIUM 8.8 mg/dL (8.5-10.1); CHLORIDE 103 mmol/L (98-107); CREATININE 1.23 mg/dL (0.7-1.3)
[2018-12-09 10:50] LABS: BASOPHILS # (AUTO) 0.01 x10^3/uL (0-0.1); BASOPHILS % (AUTO) 0 % (0-1); EOSINOPHILS % (AUTO) 4 % (1-7); LYMPHOCYTES # (AUTO) 0.43 x10^3/uL (1-3.4); LYMPHOCYTES % (AUTO) 18 % (22-44); MD SCAN; MONOCYTES # (AUTO) 0.43 x10^3/uL (0.2-0.8); MONOCYTES % (AUTO) 18 % (2-9); NEUTROPHILS # (AUTO) 1.39 x10^3/uL (1.8-6.8); NEUTROPHILS % (AUTO) 59 % (42-75)
[2018-12-09] MEDS ORDERED: CATHFLO-ALTEPLASE 2 MG/2 ML CATHFLUSH STA (11:15)
== END 2018-12-09 14:27 | disposition home health service (06) | DRG 314 ==
LOC: ED 13:26 → EDIP 14:47 → 3NE 16:54
PROVIDERS: ADMIT Internal Medicine; ATTEND Family Medicine
PROC: 3E0436Z Introduction of Nutritional Substance into Central Vein, Percutaneous Approach (ICD-10-PCS; 2018-09-17)
PROC: 05PY33Z Removal of Infusion Device from Upper Vein, Percutaneous Approach (ICD-10-PCS; principal; 2018-09-21)
PROC: 0JH63XZ Insertion of Tunneled Vascular Access Device into Chest Subcutaneous Tissue and Fascia, Percutaneous Approach (ICD-10-PCS; 2018-10-15)
PROC: 02HV33Z Insertion of Infusion Device into Superior Vena Cava, Percutaneous Approach (ICD-10-PCS; 2018-10-15)
PROC: B5181ZA Fluoroscopy of Superior Vena Cava using Low Osmolar Contrast, Guidance (ICD-10-PCS; 2018-10-15)
PROC: B548ZZA Ultrasonography of Superior Vena Cava, Guidance (ICD-10-PCS; 2018-10-15)
DX: T80.211A Bloodstream infection due to central venous catheter, initial encounter (principal); E43 Unspecified severe protein-calorie malnutrition; N17.0 Acute kidney failure with tubular necrosis; R57.1 Hypovolemic shock; J69.0 Pneumonitis due to inhalation of food and vomit; K63.2 Fistula of intestine; L03.311 Cellulitis of abdominal wall; N39.0 Urinary tract infection, site not specified; K94.03 Colostomy malfunction; J98.11 Atelectasis; Z68.41 Body mass index [BMI] 40.0-44.9, adult; B95.62 Methicillin resistant Staphylococcus aureus infection as the cause of diseases classified elsewhere; A08.4 Viral intestinal infection, unspecified; Y83.3 Surgical operation with formation of external stoma as the cause of abnormal reaction of the patient, or of later complication, without mention of misadventure at the time of the procedure; Y83.8 Other surgical procedures as the cause of abnormal reaction of the patient, or of later complication, without mention of misadventure at the time of the procedure; E87.6 Hypokalemia; F43.21 Adjustment disorder with depressed mood; N20.9 Urinary calculus, unspecified; D69.6 Thrombocytopenia, unspecified; N18.3 Chronic kidney disease, stage 3 (moderate); Y92.89 Other specified places as the place of occurrence of the external cause; Z83.3 Family history of diabetes mellitus; Z91.14 Patient's other noncompliance with medication regimen; Z80.8 Family history of malignant neoplasm of other organs or systems; Z85.830 Personal history of malignant neoplasm of bone; Z89.611 Acquired absence of right leg above knee; Z87.442 Personal history of urinary calculi; Z89.612 Acquired absence of left leg above knee; Z90.49 Acquired absence of other specified parts of digestive tract; Z91.19 Patient's noncompliance with other medical treatment and regimen; Z88.1 Allergy status to other antibiotic agents; Z88.0 Allergy status to penicillin; Z88.8 Allergy status to other drugs, medicaments and biological substances
CPT/HCPCS: 36415; 77001; 84145; 99291; J3475; J3490; 36558; 36589; 71045; 74176; 76604; 76770; 80048; 80053; 80061; 80069; 80202; 81001; 82040; 82550; 82962; 83036; 83605; 83735; 84100; 84134; 84439; 84443; 84478; 85025; 85651; 86140; 87040; 87077; 87086; 87186; 87324; 93306; 99156; 99157; G0378; J0610; J0696; J0878; J1644; J1815; J2250; J2405; J2550; J2997; J3010; J3370; J3480; J1200; J1720; J2270; J2310; J3420; J7030; J7040; J7050; Q0163; Q0177

== ENCOUNTER 2018-12-12 19:53 | Inpatient (IN) | payer MEDICAID ==
[~2018-12-12] VITALS: Ht 124.5 cm; Wt 70.2 kg
[2018-12-12] MEDS ORDERED: ACETAMINOPHEN 500 MG TABLET PO ONE (20:30)
[2018-12-12] MEDS ORDERED: SODIUM CHLORIDE 0.9% 1,000ML IVBOLUS ONE ×3 (20:30→22:30)
[2018-12-12] MEDS ORDERED: SODIUM CHLORIDE FLUSH 10ML SYR IVF ONE (20:30)
[2018-12-12 20:42] LABS: BASOPHILS # (AUTO) 0.03 x10^3/uL (0-0.1); BASOPHILS % (AUTO) 1 % (0-1); EOSINOPHILS # (AUTO) 0.02 x10^3/uL (0-0.4); EOSINOPHILS % (AUTO) 1 % (1-7); LYMPHOCYTES # (AUTO) 0.13 x10^3/uL (1-3.4); LYMPHOCYTES % (AUTO) 4 % (22-44); MD NO; MEAN CORPUSCULAR HEMOGLOBIN 31.6 pg (27.5-34.5); MEAN CORPUSCULAR HGB CONC 34.7 g/dL (33.2-36.2); MEAN CORPUSCULAR VOLUME 91.1 fL (81-97); MEAN PLATELET VOLUME 9.8 fL (7.4-10.4); MONOCYTES # (AUTO) 0.17 x10^3/uL (0.2-0.8); MONOCYTES % (AUTO) 5 % (2-9); NEUTROPHILS # (AUTO) 3.26 x10^3/uL (1.8-6.8); NEUTROPHILS % (AUTO) 90 % (42-75); PLATELET COUNT 121 x10^3/uL (130-400); RED BLOOD COUNT 3.44 x10^6/uL (4.38-5.82); RED CELL DISTRIBUTION WIDTH 13.4 % (9.4-14.8)
[2018-12-12 20:51] LABS: ALANINE AMINOTRANSFERASE 44 U/L (12-78); ALBUMIN 2.7 g/dL (3.4-5.0); ANION GAP 10 mmol/L (5-15); CALCIUM 8.4 mg/dL (8.5-10.1); CHLORIDE 102 mmol/L (98-107)
[2018-12-12] MEDS ORDERED: MORPHINE SULFATE 4 MG/ML, 1ML ONE (20:51)
[2018-12-12 20:54] LABS: ALKALINE PHOSPHATASE 365 U/L (45-117); BILIRUBIN,TOTAL 2.7 mg/dL (0.2-1.0); CREATININE 1.86 mg/dL (0.7-1.3); TOTAL PROTEIN 7.8 g/dL (6.4-8.2)
[2018-12-12] MEDS ORDERED: MORPHINE SULFATE 4 MG/ML, 1ML IVPush PRN (21:00)
[2018-12-12] MEDS ORDERED: CEFEPIME 2 GM in DEXTROSE 5% 100 ML IV ONE (22:00)
[2018-12-12] MEDS ORDERED: VANCOMYCIN PER PHARMACY IV ONE (22:00)
[2018-12-12] MEDS ORDERED: ACETAMINOPHEN 500 MG TABLET ONE (22:11)
[2018-12-12] MEDS ORDERED: VANCOMYCIN 1,500 MG in SODIUM CHLORIDE 0.9% 250 ML IV ONE (22:30)
[2018-12-12] MEDS ORDERED: NOREPINEPHRINE 4 MG in SODIUM CHLORIDE 0.9% 246 ML IV PRN (22:40)
[2018-12-12] MEDS: HEPARIN 5,000 UNITS/ML, 1ML SQ SCH (23:00)
[2018-12-12] MEDS ORDERED: ACETAMINOPHEN 325 MG TABLET PO PRN (23:00)
[2018-12-12] MEDS: SODIUM CHLORIDE 0.9% 1,000 ML IV SCH (23:06)
--- NOTE | 2018-12-12 23:16 | NUR ---
received pt from jacqueline rn at bed side pt's bp is low up to 70/40 given 3 liters of ns for sepsis protocol per dr walker iv abx was started after blood cutures were drawn started levophed up to 5 mcg bp is stablilzed hr 106 from 140's
--- NOTE | 2018-12-13 00:06 | NUR ---
given report to dorota contreras rn vss bp was stabilized after start levophed current rate is 7 mcg/hr pt is iso MRSA hx of
[2018-12-13] MEDS: LINEZOLID PMX 600MG/300ML 300 ML IV SCH ×3 (00:38→13:44)
[2018-12-13] MEDS ORDERED: NOREPINEPHRINE 4 MG in SODIUM CHLORIDE 0.9% 246 ML IV PRN (01:00)
[2018-12-13] MEDS: MORPHINE SULFATE 4 MG/ML, 1ML IVPush PRN ×4 (01:07→23:26)
[2018-12-13 02:53] LABS: CLOSTRIDIUM DIFFICILE ANTIGEN NEGATIVE; CLOSTRIDIUM DIFFICILE TOXIN NEGATIVE (Negative)
[2018-12-13 04:00] VITALS: BP 128/60
[2018-12-13] MEDS: SODIUM CHLORIDE 0.9% 1,000 ML IV SCH ×3 (04:25→16:11)
[2018-12-13 05:03] LABS: BASOPHILS % (AUTO) 0 % (0-1); EOSINOPHILS # (AUTO) 0.04 x10^3/uL (0-0.4); EOSINOPHILS % (AUTO) 1 % (1-7); LYMPHOCYTES # (AUTO) 0.21 x10^3/uL (1-3.4); LYMPHOCYTES % (AUTO) 4 % (22-44); MD NO; MEAN CORPUSCULAR HEMOGLOBIN 31.6 pg (27.5-34.5); MEAN CORPUSCULAR HGB CONC 34.2 g/dL (33.2-36.2); MEAN CORPUSCULAR VOLUME 92.3 fL (81-97); MEAN PLATELET VOLUME 10.1 fL (7.4-10.4); MONOCYTES # (AUTO) 0.33 x10^3/uL (0.2-0.8); MONOCYTES % (AUTO) 6 % (2-9); NEUTROPHILS # (AUTO) 5.33 x10^3/uL (1.8-6.8); NEUTROPHILS % (AUTO) 90 % (42-75); PLATELET COUNT 108 x10^3/uL (130-400); RED BLOOD COUNT 3.08 x10^6/uL (4.38-5.82); RED CELL DISTRIBUTION WIDTH 13.2 % (9.4-14.8)
[2018-12-13 05:10] LABS: ALBUMIN 2.2 g/dL (3.4-5.0); ANION GAP 8 mmol/L (5-15); CALCIUM 7.9 mg/dL (8.5-10.1); CHLORIDE 111 mmol/L (98-107)
[2018-12-13 05:11] VITALS: BP 107/52
[2018-12-13 05:14] LABS: ALANINE AMINOTRANSFERASE 43 U/L (12-78); ALKALINE PHOSPHATASE 265 U/L (45-117); BILIRUBIN,TOTAL 2.9 mg/dL (0.2-1.0); CREATININE 1.55 mg/dL (0.7-1.3); TOTAL PROTEIN 6.5 g/dL (6.4-8.2)
[2018-12-13 05:31] LABS: CULTURE INDICATED? YES; MICROSCOPIC INDICATED
[2018-12-13] MEDS ORDERED: CEFEPIME 2 GM in DEXTROSE 5% 100 ML IV SCH (09:00)
[2018-12-13 09:31] LABS: PREALBUMIN 18.1 mg/dL (20.0-40.0)
[2018-12-13] MEDS: HEPARIN 5,000 UNITS/ML, 1ML SQ SCH ×2 (11:35→23:00)
[2018-12-13] MEDS ORDERED: FILTER, DISP 1.2 MICRON FOR TPN/PVN IV PRN (17:00)
[2018-12-13] MEDS ORDERED: AMINO ACID 10% 750 ML, DEXTROSE 70% 350 ML, FAT EMUL/SMOF TPN 175 ML, STERILE WATER 1,0... IV SCH ×2 (17:00→18:00)
[2018-12-13] MEDS ORDERED: PVN PER PHARMACY MC PRN (17:00)
[2018-12-13] MEDS ORDERED: DEXTROSE 50%, 50ML SYRINGE IVPush PRN (17:00)
[2018-12-13] MEDS ORDERED: DEXTROSE 10% 500 ML IV PRN (17:00)
[2018-12-13] MEDS ORDERED: PHARMACOKINETIC CONSULTATION MC ONE (17:30)
[2018-12-13] MEDS ORDERED: PHARMACOKINETIC MONITORING MC PRN (17:30)
[2018-12-13] MEDS ORDERED: VANCOMYCIN PER PHARMACY MC PRN (17:30)
[2018-12-13] MEDS ORDERED: MORPHINE SULFATE 4 MG/ML, 1ML ONE (18:20)
[2018-12-13] MEDS: INSULIN REGULAR MEDIUM DOSE Q6H X 48HRS SQ-INSULIN SCH (20:11)
[2018-12-13] MEDS: MEROPENEM 1 GM in SODIUM CHLORIDE 0.9% 100 ML IV SCH (20:11)
[2018-12-13 20:41] VITALS: BP 103/67
[2018-12-14] MEDS: INSULIN REGULAR MEDIUM DOSE Q6H X 48HRS SQ-INSULIN SCH ×4 (02:24→21:00)
[2018-12-14] MEDS: MEROPENEM 1 GM in SODIUM CHLORIDE 0.9% 100 ML IV SCH ×3 (03:58→21:00)
[2018-12-14] MEDS: SODIUM CHLORIDE 0.9% 1,000 ML IV SCH ×3 (05:24→22:52)
[2018-12-14 09:42] VITALS: BP 97/61
[2018-12-14] MEDS: MORPHINE SULFATE 4 MG/ML, 1ML IVPush PRN ×3 (09:45→20:58)
[2018-12-14] MEDS ORDERED: FILTER, DISP 1.2 MICRON FOR TPN/PVN IV PRN (10:30)
[2018-12-14] MEDS: HEPARIN 5,000 UNITS/ML, 1ML SQ SCH ×2 (10:47→23:00)
[2018-12-14] MEDS ORDERED: AMINO ACID 10% 750 ML, DEXTROSE 70% 350 ML, FAT EMUL/SMOF TPN 175 ML, STERILE WATER 1,0... IV SCH (17:00)
[2018-12-14 18:57] VITALS: BP 101/68
[2018-12-15] MEDS: INSULIN REGULAR MEDIUM DOSE Q6H X 48HRS SQ-INSULIN SCH ×3 (02:42→15:00)
[2018-12-15] MEDS: MEROPENEM 1 GM in SODIUM CHLORIDE 0.9% 100 ML IV SCH ×2 (04:02→12:00)
[2018-12-15] MEDS: MORPHINE SULFATE 4 MG/ML, 1ML IVPush PRN ×3 (04:02→18:14)
[2018-12-15] MEDS: SODIUM CHLORIDE 0.9% 1,000 ML IV SCH ×4 (06:26→22:06)
[2018-12-15 09:49] VITALS: BP 87/54
[2018-12-15] MEDS: HEPARIN 5,000 UNITS/ML, 1ML SQ SCH ×2 (11:00→22:06)
[2018-12-15] MEDS ORDERED: SODIUM CHLORIDE 0.9% IVPB SCH ×2 (12:30→16:24)
[2018-12-15] MEDS ORDERED: DAPTOMYCIN IVPB SCH ×2 (12:30→16:24)
[2018-12-15] MEDS ORDERED: FILTER, DISP 1.2 MICRON FOR TPN/PVN IV PRN (17:00)
[2018-12-15] MEDS ORDERED: AMINO ACID 10% 750 ML, DEXTROSE 70% 350 ML, FAT EMUL/SMOF TPN 175 ML, STERILE WATER 1,0... IV SCH (17:00)
[2018-12-16] MEDS: MEROPENEM 1 GM in SODIUM CHLORIDE 0.9% 100 ML IV SCH ×3 (00:10→23:44)
[2018-12-16] MEDS: SODIUM CHLORIDE 0.9% IVPB SCH ×2 (02:00→14:54)
[2018-12-16] MEDS: DAPTOMYCIN IVPB SCH ×2 (02:00→14:54)
[2018-12-16] MEDS: SODIUM CHLORIDE 0.9% 1,000 ML IV SCH ×3 (06:52→23:44)
[2018-12-16] MEDS: INSULIN REGULAR MEDIUM DOSE QDAY SQ-INSULIN SCH (09:00)
[2018-12-16 10:47] VITALS: BP 95/63
[2018-12-16] MEDS: MORPHINE SULFATE 4 MG/ML, 1ML IVPush PRN ×3 (10:57→22:28)
[2018-12-16] MEDS: HEPARIN 5,000 UNITS/ML, 1ML SQ SCH ×2 (11:00→21:00)
[2018-12-16] MEDS ORDERED: AMINO ACID 10% 750 ML, DEXTROSE 70% 350 ML, FAT EMUL/SMOF TPN 175 ML, STERILE WATER 1,0... IV SCH (17:00)
[2018-12-16 17:02] VITALS: BP 106/70
[2018-12-16 22:26] VITALS: BP 96/67
[2018-12-17] MEDS: SODIUM CHLORIDE 0.9% IVPB SCH ×2 (03:09→15:46)
[2018-12-17] MEDS: DAPTOMYCIN IVPB SCH ×2 (03:09→15:46)
[2018-12-17 04:03] VITALS: BP 92/58
[2018-12-17] MEDS: MORPHINE SULFATE 4 MG/ML, 1ML IVPush PRN ×2 (04:08→15:08)
[2018-12-17] MEDS: CALCIUM CARBONATE 500 MG TAB.CHEW PO PRN (04:09)
[2018-12-17] MEDS: SODIUM CHLORIDE 0.9% 1,000 ML IV SCH (08:00)
[2018-12-17] MEDS: INSULIN REGULAR MEDIUM DOSE QDAY SQ-INSULIN SCH (09:00)
[2018-12-17] MEDS: HEPARIN 5,000 UNITS/ML, 1ML SQ SCH ×2 (09:00→18:02)
[2018-12-17] MEDS: MEROPENEM 1 GM in SODIUM CHLORIDE 0.9% 100 ML IV SCH (11:19)
[2018-12-17 15:04] VITALS: BP 95/60
[2018-12-17] MEDS: AMINO ACID 10% 750 ML, DEXTROSE 70% 350 ML, FAT EMUL/SMOF TPN 175 ML, STERILE WATER 1,0... IV SCH (17:00)
[2018-12-17] MEDS: D5%-0.45% NACL 1,000 ML IV SCH (17:55)
[2018-12-18] MEDS: MEROPENEM 1 GM in SODIUM CHLORIDE 0.9% 100 ML IV SCH ×2 (00:15→13:10)
[2018-12-18 01:19] VITALS: BP 101/70
[2018-12-18] MEDS: MORPHINE SULFATE 4 MG/ML, 1ML IVPush PRN ×3 (01:22→16:49)
[2018-12-18] MEDS: D5%-0.45% NACL 1,000 ML IV SCH ×2 (03:16→13:10)
[2018-12-18] MEDS: DAPTOMYCIN IVPB SCH ×2 (03:16→16:44)
[2018-12-18] MEDS: SODIUM CHLORIDE 0.9% IVPB SCH ×2 (03:16→16:44)
[2018-12-18] MEDS: HEPARIN 5,000 UNITS/ML, 1ML SQ SCH ×2 (07:29→21:00)
[2018-12-18] MEDS: INSULIN REGULAR MEDIUM DOSE QDAY SQ-INSULIN SCH (07:30)
[2018-12-18 10:30] VITALS: BP 102/62
[2018-12-18] MEDS: AMINO ACID 10% 750 ML, DEXTROSE 70% 350 ML, FAT EMUL/SMOF TPN 175 ML, STERILE WATER 1,0... IV SCH (15:17)
[2018-12-18 16:50] VITALS: BP 101/67
[2018-12-18 18:53] LABS: HCT (SEDRATE) 30.8 % (39.2-51.8)
[2018-12-18 19:24] LABS: C-REACTIVE PROTEIN, QUANT 3.4 mg/dL (0.02-0.49)
[2018-12-19] MEDS: D5%-0.45% NACL 1,000 ML IV SCH ×3 (00:06→19:44)
[2018-12-19] MEDS: MEROPENEM 1 GM in SODIUM CHLORIDE 0.9% 100 ML IV SCH ×3 (00:06→23:56)
[2018-12-19] MEDS: SODIUM CHLORIDE 0.9% IVPB SCH ×2 (03:09→16:06)
[2018-12-19] MEDS: DAPTOMYCIN IVPB SCH ×2 (03:09→16:06)
[2018-12-19] MEDS: MORPHINE SULFATE 4 MG/ML, 1ML IVPush PRN ×3 (04:18→19:43)
[2018-12-19] MEDS: HEPARIN 5,000 UNITS/ML, 1ML SQ SCH ×2 (09:00→19:44)
[2018-12-19] MEDS: INSULIN REGULAR MEDIUM DOSE QDAY SQ-INSULIN SCH (09:00)
[2018-12-19 10:48] VITALS: BP 109/72
[2018-12-19] MEDS: AMINO ACID 10% 750 ML, DEXTROSE 70% 350 ML, FAT EMUL/SMOF TPN 175 ML, STERILE WATER 1,0... IV SCH (17:00)
[2018-12-19 19:42] VITALS: BP 96/57
[2018-12-20] MEDS: MORPHINE SULFATE 4 MG/ML, 1ML IVPush PRN ×4 (01:51→21:16)
[2018-12-20] MEDS: DAPTOMYCIN IVPB SCH ×2 (04:11→17:46)
[2018-12-20] MEDS: SODIUM CHLORIDE 0.9% IVPB SCH ×2 (04:11→17:46)
[2018-12-20] MEDS: HEPARIN 5,000 UNITS/ML, 1ML SQ SCH ×2 (09:00→21:00)
[2018-12-20] MEDS: INSULIN REGULAR MEDIUM DOSE QDAY SQ-INSULIN SCH (09:00)
[2018-12-20] MEDS: MEROPENEM 1 GM in SODIUM CHLORIDE 0.9% 100 ML IV SCH (11:19)
[2018-12-20] MEDS ORDERED: DIPHENHYDRAMINE 50 MG/ML, 1ML IVPush PRN (14:30)
[2018-12-20] MEDS: AMINO ACID 10% 750 ML, DEXTROSE 70% 350 ML, FAT EMUL/SMOF TPN 175 ML, STERILE WATER 1,0... IV SCH (17:00)
[2018-12-21] MEDS: MEROPENEM 1 GM in SODIUM CHLORIDE 0.9% 100 ML IV SCH ×2 (00:16→11:27)
[2018-12-21] MEDS: MORPHINE SULFATE 4 MG/ML, 1ML IVPush PRN ×3 (03:26→15:38)
[2018-12-21] MEDS: CALCIUM CARBONATE 500 MG TAB.CHEW PO PRN (03:31)
[2018-12-21] MEDS: D5%-0.45% NACL 1,000 ML IV SCH (03:32)
[2018-12-21] MEDS: DAPTOMYCIN IVPB SCH ×2 (05:43→18:32)
[2018-12-21] MEDS: SODIUM CHLORIDE 0.9% IVPB SCH ×2 (05:43→18:32)
[2018-12-21] MEDS: INSULIN REGULAR MEDIUM DOSE QDAY SQ-INSULIN SCH (09:00)
[2018-12-21] MEDS: HEPARIN 5,000 UNITS/ML, 1ML SQ SCH ×2 (09:00→21:00)
[2018-12-21 15:24] VITALS: BP 119/74
[2018-12-21] MEDS ORDERED: ONDANSETRON ODT 4 MG ONE (15:50)
[2018-12-21] MEDS: ONDANSETRON 4 MG TABLET PO PRN (15:53)
[2018-12-21] MEDS ORDERED: DIPHENHYDRAMINE 50 MG/ML, 1ML IVPush ONE (16:30)
[2018-12-21] MEDS: AMINO ACID 10% 750 ML, DEXTROSE 70% 350 ML, FAT EMUL/SMOF TPN 175 ML, STERILE WATER 1,0... IV SCH (17:00)
[2018-12-22] MEDS: MEROPENEM 1 GM in SODIUM CHLORIDE 0.9% 100 ML IV SCH ×3 (00:07→23:44)
[2018-12-22] MEDS: MORPHINE SULFATE 4 MG/ML, 1ML IVPush PRN ×5 (01:35→23:44)
[2018-12-22] MEDS: SODIUM CHLORIDE 0.9% IVPB SCH ×2 (05:49→17:46)
[2018-12-22] MEDS: DAPTOMYCIN IVPB SCH ×2 (05:49→17:46)
[2018-12-22] MEDS: D5%-0.45% NACL 1,000 ML IV SCH ×2 (08:00→20:00)
[2018-12-22] MEDS: INSULIN REGULAR MEDIUM DOSE QDAY SQ-INSULIN SCH (09:00)
[2018-12-22] MEDS: HEPARIN 5,000 UNITS/ML, 1ML SQ SCH ×2 (09:00→21:00)
[2018-12-22 11:23] VITALS: BP 124/87
[2018-12-22] MEDS: AMINO ACID 10% 750 ML, DEXTROSE 70% 350 ML, FAT EMUL/SMOF TPN 175 ML, STERILE WATER 1,0... IV SCH (17:00)
[2018-12-22] MEDS: CALCIUM CARBONATE 500 MG TAB.CHEW PO PRN (18:34)
[2018-12-22 23:40] VITALS: BP 108/73
[2018-12-23 05:39] VITALS: BP 110/75
[2018-12-23] MEDS: MORPHINE SULFATE 4 MG/ML, 1ML IVPush PRN ×4 (05:41→23:52)
[2018-12-23] MEDS: SODIUM CHLORIDE 0.9% IVPB SCH ×2 (05:41→18:17)
[2018-12-23] MEDS: DAPTOMYCIN IVPB SCH ×2 (05:41→18:17)
[2018-12-23] MEDS: D5%-0.45% NACL 1,000 ML IV SCH ×3 (06:00→23:53)
[2018-12-23] MEDS: HEPARIN 5,000 UNITS/ML, 1ML SQ SCH ×2 (09:34→20:45)
[2018-12-23] MEDS: INSULIN REGULAR MEDIUM DOSE QDAY SQ-INSULIN SCH (09:34)
[2018-12-23 10:16] VITALS: BP 115/74
[2018-12-23] MEDS: MEROPENEM 1 GM in SODIUM CHLORIDE 0.9% 100 ML IV SCH ×2 (11:53→23:52)
[2018-12-23] MEDS: AMINO ACID 10% 750 ML, DEXTROSE 70% 350 ML, FAT EMUL/SMOF TPN 175 ML, STERILE WATER 1,0... IV SCH (15:25)
[2018-12-23 15:32] VITALS: BP 108/76
[2018-12-23 15:58] LABS: BASOPHILS # (AUTO) 0.02 x10^3/uL (0-0.1); BASOPHILS % (AUTO) 1 % (0-1); EOSINOPHILS # (AUTO) 0.25 x10^3/uL (0-0.4); EOSINOPHILS % (AUTO) 6 % (1-7); LYMPHOCYTES # (AUTO) 1.02 x10^3/uL (1-3.4); LYMPHOCYTES % (AUTO) 24 % (22-44); MD NO; MEAN CORPUSCULAR HEMOGLOBIN 30.3 pg (27.5-34.5); MEAN CORPUSCULAR HGB CONC 33.3 g/dL (33.2-36.2); MEAN CORPUSCULAR VOLUME 90.8 fL (81-97); MEAN PLATELET VOLUME 8.2 fL (7.4-10.4); MONOCYTES # (AUTO) 0.24 x10^3/uL (0.2-0.8); MONOCYTES % (AUTO) 6 % (2-9); NEUTROPHILS # (AUTO) 2.71 x10^3/uL (1.8-6.8); NEUTROPHILS % (AUTO) 64 % (42-75); PLATELET COUNT 168 x10^3/uL (130-400); RED BLOOD COUNT 3.57 x10^6/uL (4.38-5.82); RED CELL DISTRIBUTION WIDTH 13.2 % (9.4-14.8)
[2018-12-23 16:09] LABS: ALANINE AMINOTRANSFERASE 61 U/L (12-78); ALBUMIN 2.6 g/dL (3.4-5.0); ANION GAP 6 mmol/L (5-15); CALCIUM 8.8 mg/dL (8.5-10.1); CHLORIDE 109 mmol/L (98-107)
[2018-12-23 16:17] LABS: ALKALINE PHOSPHATASE 243 U/L (45-117); BILIRUBIN,TOTAL 0.6 mg/dL (0.2-1.0); CREATINE KINASE, TOTAL 20 U/L (39-308); CREATININE 0.94 mg/dL (0.7-1.3); TOTAL PROTEIN 7.1 g/dL (6.4-8.2)
[2018-12-23 16:38] LABS: HCT (SEDRATE) 32.5 % (39.2-51.8)
[2018-12-23 23:41] VITALS: BP 113/87
[2018-12-24] MEDS: D5%-0.45% NACL 1,000 ML IV SCH ×3 (02:00→22:00)
[2018-12-24] MEDS: MORPHINE SULFATE 4 MG/ML, 1ML IVPush PRN ×4 (04:37→18:37)
[2018-12-24] MEDS: SODIUM CHLORIDE 0.9% IVPB SCH ×2 (05:19→18:31)
[2018-12-24] MEDS: DAPTOMYCIN IVPB SCH ×2 (05:19→18:31)
[2018-12-24] MEDS: INSULIN REGULAR MEDIUM DOSE QDAY SQ-INSULIN SCH (09:03)
[2018-12-24] MEDS: HEPARIN 5,000 UNITS/ML, 1ML SQ SCH ×2 (09:03→21:00)
[2018-12-24 09:46] VITALS: BP 109/70
[2018-12-24] MEDS: MEROPENEM 1 GM in SODIUM CHLORIDE 0.9% 100 ML IV SCH ×2 (12:30→23:59)
[2018-12-24] MEDS ORDERED: MAGNESIUM SULFATE PMX 2GM/50ML 50 ML IV ONE (14:30)
[2018-12-24 14:36] VITALS: BP 110/66
[2018-12-24] MEDS ORDERED: DIPHENHYDRAMINE 50 MG/ML, 1ML IVPush ONE (15:00)
[2018-12-24] MEDS: AMINO ACID 10% 750 ML, DEXTROSE 70% 350 ML, FAT EMUL/SMOF TPN 175 ML, STERILE WATER 1,0... IV SCH (17:13)
[2018-12-25 01:38] VITALS: BP 107/83
[2018-12-25] MEDS: MORPHINE SULFATE 4 MG/ML, 1ML IVPush PRN ×4 (01:41→21:28)
[2018-12-25] MEDS: SODIUM CHLORIDE 0.9% IVPB SCH ×2 (06:08→18:17)
[2018-12-25] MEDS: DAPTOMYCIN IVPB SCH ×2 (06:08→18:17)
[2018-12-25] MEDS ORDERED: ACETAMINOPHEN 325 MG TABLET PO PRN (08:30)
[2018-12-25] MEDS: HEPARIN 5,000 UNITS/ML, 1ML SQ SCH ×2 (09:35→21:28)
[2018-12-25 09:46] VITALS: BP 106/70
[2018-12-25] MEDS: MEROPENEM 1 GM in SODIUM CHLORIDE 0.9% 100 ML IV SCH ×2 (11:55→23:52)
[2018-12-25 12:27] LABS: ANION GAP 5 mmol/L (5-15); CALCIUM 9.2 mg/dL (8.5-10.1); CHLORIDE 105 mmol/L (98-107); CREATININE 1.12 mg/dL (0.7-1.3)
[2018-12-25] MEDS: AMINO ACID 10% 750 ML, DEXTROSE 70% 350 ML, FAT EMUL/SMOF TPN 175 ML, STERILE WATER 1,0... IV SCH (17:29)
[2018-12-25 21:19] VITALS: BP 100/61
[2018-12-25] MEDS: INSULIN REGULAR MEDIUM DOSE Q6H X 48HRS SQ-INSULIN SCH (21:28)
[2018-12-26 02:30] VITALS: BP 111/66
[2018-12-26] MEDS: MORPHINE SULFATE 4 MG/ML, 1ML IVPush PRN ×3 (02:32→18:07)
[2018-12-26] MEDS: INSULIN REGULAR MEDIUM DOSE Q6H X 48HRS SQ-INSULIN SCH ×4 (03:02→21:00)
[2018-12-26] MEDS: DAPTOMYCIN IVPB SCH ×2 (05:42→18:07)
[2018-12-26] MEDS: SODIUM CHLORIDE 0.9% IVPB SCH ×2 (05:42→18:07)
[2018-12-26] MEDS: HEPARIN 5,000 UNITS/ML, 1ML SQ SCH ×2 (07:46→21:00)
[2018-12-26 12:07] VITALS: BP 108/65
[2018-12-26] MEDS: MEROPENEM 1 GM in SODIUM CHLORIDE 0.9% 100 ML IV SCH ×2 (12:09→23:41)
[2018-12-26 16:32] LABS: % IRON SATURATION 44 % (20-55); IRON LEVEL 80 mcg/dL (65-175); TOTAL IRON BINDING CAPACITY 180 mcg/dL (250-450)
[2018-12-26] MEDS: AMINO ACID 10% 750 ML, DEXTROSE 70% 350 ML, FAT EMUL/SMOF TPN 175 ML, STERILE WATER 1,0... IV SCH (17:00)
[2018-12-27] MEDS: INSULIN REGULAR MEDIUM DOSE Q6H X 48HRS SQ-INSULIN SCH ×3 (03:00→15:00)
[2018-12-27 03:01] VITALS: BP 116/77
[2018-12-27] MEDS: MORPHINE SULFATE 4 MG/ML, 1ML IVPush PRN ×5 (03:04→20:23)
[2018-12-27] MEDS: DAPTOMYCIN IVPB SCH ×2 (06:08→18:01)
[2018-12-27] MEDS: SODIUM CHLORIDE 0.9% IVPB SCH ×2 (06:08→18:01)
[2018-12-27] MEDS: HEPARIN 5,000 UNITS/ML, 1ML SQ SCH ×2 (09:00→21:00)
[2018-12-27] MEDS: MEROPENEM 1 GM in SODIUM CHLORIDE 0.9% 100 ML IV SCH ×2 (12:01→23:58)
[2018-12-27 14:39] VITALS: BP 109/76
[2018-12-27] MEDS: AMINO ACID 10% 750 ML, DEXTROSE 70% 350 ML, FAT EMUL/SMOF TPN 175 ML, STERILE WATER 1,0... IV SCH (15:22)
[2018-12-27] MEDS ORDERED: KETOROLAC 30 MG/1 ML IVPush PRN (15:30)
[2018-12-27 20:22] VITALS: BP 95/63
[2018-12-28] MEDS: MORPHINE SULFATE 4 MG/ML, 1ML IVPush PRN ×4 (02:44→19:33)
[2018-12-28] MEDS: SODIUM CHLORIDE 0.9% IVPB SCH ×2 (05:56→17:55)
[2018-12-28] MEDS: DAPTOMYCIN IVPB SCH ×2 (05:56→17:55)
[2018-12-28] MEDS: HEPARIN 5,000 UNITS/ML, 1ML SQ SCH ×2 (09:00→21:00)
[2018-12-28 09:16] VITALS: BP 87/49
[2018-12-28 09:45] VITALS: BP 98/53
[2018-12-28] MEDS: MEROPENEM 1 GM in SODIUM CHLORIDE 0.9% 100 ML IV SCH (12:39)
[2018-12-28 14:10] VITALS: BP 98/64
[2018-12-28] MEDS: LACTOBACILLUS CHEW TABLET PO SCH ×3 (14:30→21:00)
[2018-12-28] MEDS: SODIUM CHLORIDE 0.9% 1,000 ML IV SCH (14:49)
[2018-12-28] MEDS: AMINO ACID 10% 750 ML, DEXTROSE 70% 350 ML, FAT EMUL/SMOF TPN 175 ML, STERILE WATER 1,0... IV SCH (17:00)
[2018-12-28 19:31] VITALS: BP 93/55
[2018-12-28] MEDS ORDERED: INSULIN REGULAR MEDIUM DOSE QDAY SQ-INSULIN SCH (21:00)
[2018-12-29] MEDS: MEROPENEM 1 GM in SODIUM CHLORIDE 0.9% 100 ML IV SCH ×3 (00:20→23:00)
[2018-12-29 01:33] VITALS: BP 89/58
[2018-12-29] MEDS: MORPHINE SULFATE 4 MG/ML, 1ML IVPush PRN ×4 (01:35→20:22)
[2018-12-29] MEDS: DAPTOMYCIN IVPB SCH ×2 (06:15→23:50)
[2018-12-29] MEDS: SODIUM CHLORIDE 0.9% IVPB SCH ×2 (06:15→23:50)
[2018-12-29] MEDS: SODIUM CHLORIDE 0.9% 1,000 ML IV SCH ×2 (07:23→15:29)
[2018-12-29] MEDS: LACTOBACILLUS CHEW TABLET PO SCH ×3 (09:00→21:00)
[2018-12-29 15:26] VITALS: BP 101/69
[2018-12-29] MEDS ORDERED: PVN PER PHARMACY MC PRN (17:30)
[2018-12-29 20:22] VITALS: BP 98/53
[2018-12-29 22:22] VITALS: BP 98/53
[2018-12-30 00:46] VITALS: BP 93/50
[2018-12-30] MEDS: MORPHINE SULFATE 4 MG/ML, 1ML IVPush PRN ×5 (00:48→22:21)
[2018-12-30 06:18] LABS: BASOPHILS # (AUTO) 0.02 x10^3/uL (0-0.1); BASOPHILS % (AUTO) 0 % (0-1); EOSINOPHILS # (AUTO) 0.34 x10^3/uL (0-0.4); EOSINOPHILS % (AUTO) 8 % (1-7); LYMPHOCYTES # (AUTO) 1.07 x10^3/uL (1-3.4); LYMPHOCYTES % (AUTO) 26 % (22-44); MD NO; MEAN CORPUSCULAR HEMOGLOBIN 30.2 pg (27.5-34.5); MEAN CORPUSCULAR HGB CONC 33.3 g/dL (33.2-36.2); MEAN CORPUSCULAR VOLUME 90.8 fL (81-97); MEAN PLATELET VOLUME 8.9 fL (7.4-10.4); MONOCYTES # (AUTO) 0.26 x10^3/uL (0.2-0.8); MONOCYTES % (AUTO) 6 % (2-9); NEUTROPHILS # (AUTO) 2.44 x10^3/uL (1.8-6.8); NEUTROPHILS % (AUTO) 59 % (42-75); PLATELET COUNT 144 x10^3/uL (130-400); RED CELL DISTRIBUTION WIDTH 13.3 % (9.4-14.8)
[2018-12-30 06:27] LABS: ALANINE AMINOTRANSFERASE 91 U/L (12-78); ALBUMIN 2.6 g/dL (3.4-5.0); ANION GAP 5 mmol/L (5-15); CALCIUM 8.3 mg/dL (8.5-10.1); CHLORIDE 109 mmol/L (98-107); CREATININE 1.12 mg/dL (0.7-1.3); TRIGLYCERIDES 250 mg/dL (50-200)
[2018-12-30 06:28] VITALS: BP 100/59
[2018-12-30 06:30] LABS: ALKALINE PHOSPHATASE 244 U/L (45-117); BILIRUBIN,TOTAL 0.5 mg/dL (0.2-1.0); PREALBUMIN 29.1 mg/dL (20.0-40.0); TOTAL PROTEIN 6.7 g/dL (6.4-8.2)
[2018-12-30] MEDS ORDERED: MAGNESIUM SULFATE PMX 4GM/100M 100 ML IV ONE (08:00)
[2018-12-30] MEDS: LACTOBACILLUS CHEW TABLET PO SCH (08:41)
[2018-12-30 11:36] VITALS: BP 102/55
[2018-12-30] MEDS ORDERED: DIPHENOXYLATE/ATROPINE TABLET PO PRN (12:00)
[2018-12-30] MEDS: MEROPENEM 1 GM in SODIUM CHLORIDE 0.9% 100 ML IV SCH (14:05)
[2018-12-30] MEDS: SODIUM CHLORIDE 0.9% IVPB SCH (15:21)
[2018-12-30] MEDS: DAPTOMYCIN IVPB SCH (15:21)
[2018-12-30] MEDS ORDERED: [UNRECOGNIZED DRUG - OTHER] IV SCH (17:00)
[2018-12-30] MEDS ORDERED: DEXTROSE 10% 500 ML IV PRN (17:00)
[2018-12-30] MEDS ORDERED: DEXTROSE 70% IV SCH (17:00)
[2018-12-30] MEDS ORDERED: FAT EMUL IV SCH (17:00)
[2018-12-30] MEDS ORDERED: AMINO ACID 10% IV SCH (17:00)
[2018-12-30] MEDS ORDERED: DEXTROSE 50%, 50ML SYRINGE IVPush PRN (17:00)
[2018-12-30] MEDS ORDERED: SMOF TPN IV SCH (17:00)
[2018-12-30] MEDS: INSULIN REGULAR MEDIUM DOSE Q6H X 48HRS SQ-INSULIN SCH (21:00)
[2018-12-30] MEDS: SODIUM CHLORIDE 0.9% 1,000 ML IV SCH (21:00)
[2018-12-31] MEDS: MEROPENEM 1 GM in SODIUM CHLORIDE 0.9% 100 ML IV SCH ×2 (02:09→13:49)
[2018-12-31] MEDS: INSULIN REGULAR MEDIUM DOSE Q6H X 48HRS SQ-INSULIN SCH ×4 (03:00→21:00)
[2018-12-31] MEDS: SODIUM CHLORIDE 0.9% IVPB SCH ×2 (03:12→15:08)
[2018-12-31] MEDS: DAPTOMYCIN IVPB SCH ×2 (03:12→15:08)
[2018-12-31] MEDS: MORPHINE SULFATE 4 MG/ML, 1ML IVPush PRN ×5 (03:39→22:20)
[2018-12-31 03:40] VITALS: BP 97/68
[2018-12-31 09:00] VITALS: BP 105/67
[2018-12-31] MEDS: SODIUM CHLORIDE 0.9% 1,000 ML IV SCH ×2 (09:17→23:40)
[2018-12-31 13:46] VITALS: BP 109/70
[2018-12-31] MEDS ORDERED: SMOF TPN IV SCH (17:00)
[2018-12-31] MEDS ORDERED: DEXTROSE 70% IV SCH (17:00)
[2018-12-31] MEDS ORDERED: [UNRECOGNIZED DRUG - OTHER] IV SCH (17:00)
[2018-12-31] MEDS ORDERED: AMINO ACID 10% IV SCH (17:00)
[2018-12-31] MEDS ORDERED: FAT EMUL IV SCH (17:00)
[2018-12-31] MEDS: FILTER, DISP 1.2 MICRON FOR TPN/PVN IV PRN (17:51)
[2018-12-31 22:18] VITALS: BP 102/63
[2019-01-01] MEDS: MEROPENEM 1 GM in SODIUM CHLORIDE 0.9% 100 ML IV SCH ×2 (02:04→14:56)
[2019-01-01] MEDS: INSULIN REGULAR MEDIUM DOSE Q6H X 48HRS SQ-INSULIN SCH ×3 (03:00→17:18)
[2019-01-01] MEDS: SODIUM CHLORIDE 0.9% IVPB SCH ×2 (03:06→15:44)
[2019-01-01] MEDS: DAPTOMYCIN IVPB SCH ×2 (03:06→15:44)
[2019-01-01 04:37] LABS: ANION GAP 5 mmol/L (5-15); CALCIUM 8.6 mg/dL (8.5-10.1); CHLORIDE 106 mmol/L (98-107)
[2019-01-01 04:38] LABS: CREATININE 1.51 mg/dL (0.7-1.3)
[2019-01-01] MEDS: MORPHINE SULFATE 4 MG/ML, 1ML IVPush PRN ×4 (08:03→20:54)
[2019-01-01 12:43] VITALS: BP 117/44
[2019-01-01] MEDS: SODIUM CHLORIDE 0.9% 1,000 ML IV SCH (12:50)
[2019-01-01] MEDS ORDERED: AMINO ACID 10% IV SCH ×2 (17:00)
[2019-01-01] MEDS ORDERED: DEXTROSE 70% IV SCH ×2 (17:00)
[2019-01-01] MEDS ORDERED: [UNRECOGNIZED DRUG - OTHER] IV SCH (17:00)
[2019-01-01] MEDS ORDERED: FAT EMUL IV SCH ×2 (17:00)
[2019-01-01] MEDS ORDERED: [UNRECOGNIZED DRUG - OTHER] IV SCH (17:00)
[2019-01-01] MEDS ORDERED: SMOF TPN IV SCH ×2 (17:00)
[2019-01-01 17:14] VITALS: BP 113/68
[2019-01-01] MEDS: FILTER, DISP 1.2 MICRON FOR TPN/PVN IV PRN (17:19)
[2019-01-01 20:50] VITALS: BP 118/68
[2019-01-02 02:01] VITALS: BP 117/62
[2019-01-02] MEDS: MEROPENEM 1 GM in SODIUM CHLORIDE 0.9% 100 ML IV SCH ×2 (02:03→14:34)
[2019-01-02] MEDS: MORPHINE SULFATE 4 MG/ML, 1ML IVPush PRN ×5 (02:03→22:12)
[2019-01-02] MEDS: SODIUM CHLORIDE 0.9% 1,000 ML IV SCH (02:20)
[2019-01-02] MEDS: DAPTOMYCIN IVPB SCH ×2 (03:06→17:13)
[2019-01-02] MEDS: SODIUM CHLORIDE 0.9% IVPB SCH ×2 (03:06→17:13)
[2019-01-02 05:46] LABS: ANION GAP 6 mmol/L (5-15); CALCIUM 8.9 mg/dL (8.5-10.1); CHLORIDE 106 mmol/L (98-107)
[2019-01-02] MEDS: INSULIN REGULAR MEDIUM DOSE QDAY SQ-INSULIN SCH (07:42)
[2019-01-02] MEDS: LIDODERM 5% PATCH TD SCH (14:34)
[2019-01-02] MEDS ORDERED: [UNRECOGNIZED DRUG - OTHER] IV SCH (17:00)
[2019-01-02] MEDS ORDERED: SMOF TPN IV SCH ×2 (17:00)
[2019-01-02] MEDS ORDERED: FAT EMUL IV SCH ×2 (17:00)
[2019-01-02] MEDS ORDERED: DEXTROSE 70% IV SCH ×2 (17:00)
[2019-01-02] MEDS ORDERED: FILTER, DISP 1.2 MICRON FOR TPN/PVN IV PRN (17:00)
[2019-01-02] MEDS ORDERED: AMINO ACID 10% IV SCH ×2 (17:00)
[2019-01-02] MEDS ORDERED: [UNRECOGNIZED DRUG - OTHER] IV SCH (17:00)
[2019-01-02 22:26] VITALS: BP 109/66
[2019-01-03] MEDS: MORPHINE SULFATE 4 MG/ML, 1ML IVPush PRN ×5 (02:55→21:51)
[2019-01-03] MEDS: MEROPENEM 1 GM in SODIUM CHLORIDE 0.9% 100 ML IV SCH ×2 (04:38→16:04)
[2019-01-03] MEDS: SODIUM CHLORIDE 0.9% 1,000 ML IV SCH (04:38)
[2019-01-03] MEDS: DAPTOMYCIN IVPB SCH ×2 (05:25→17:50)
[2019-01-03] MEDS: SODIUM CHLORIDE 0.9% IVPB SCH ×2 (05:25→17:50)
[2019-01-03] MEDS: INSULIN REGULAR MEDIUM DOSE QDAY SQ-INSULIN SCH (07:30)
[2019-01-03 09:43] VITALS: BP 112/73
[2019-01-03] MEDS: LIDODERM 5% PATCH TD SCH (10:50)
[2019-01-03] MEDS ORDERED: DIPHENHYDRAMINE 50 MG/ML, 1ML IVPush ONE (15:30)
[2019-01-03] MEDS ORDERED: SMOF TPN IV SCH (17:00)
[2019-01-03] MEDS ORDERED: [UNRECOGNIZED DRUG - OTHER] IV SCH (17:00)
[2019-01-03] MEDS ORDERED: AMINO ACID 10% IV SCH (17:00)
[2019-01-03] MEDS ORDERED: FAT EMUL IV SCH (17:00)
[2019-01-03] MEDS ORDERED: DEXTROSE 70% IV SCH (17:00)
[2019-01-03] MEDS: FILTER, DISP 1.2 MICRON FOR TPN/PVN IV PRN (19:49)
[2019-01-03 21:49] VITALS: BP 98/61
[2019-01-04] MEDS: MEROPENEM 1 GM in SODIUM CHLORIDE 0.9% 100 ML IV SCH ×2 (04:03→15:38)
[2019-01-04] MEDS: MORPHINE SULFATE 4 MG/ML, 1ML IVPush PRN ×5 (04:03→20:36)
[2019-01-04 04:04] VITALS: BP 98/60
[2019-01-04] MEDS: SODIUM CHLORIDE 0.9% IVPB SCH ×2 (05:16→17:00)
[2019-01-04] MEDS: DAPTOMYCIN IVPB SCH ×2 (05:16→17:00)
[2019-01-04] MEDS: INSULIN REGULAR MEDIUM DOSE QDAY SQ-INSULIN SCH (08:47)
[2019-01-04] MEDS: LIDODERM 5% PATCH TD SCH (14:30)
[2019-01-05] MEDS: MORPHINE SULFATE 4 MG/ML, 1ML IVPush PRN ×6 (01:54→21:41)
[2019-01-05 01:58] VITALS: BP 93/58
[2019-01-05] MEDS: MEROPENEM 1 GM in SODIUM CHLORIDE 0.9% 100 ML IV SCH ×2 (04:09→15:50)
[2019-01-05] MEDS: SODIUM CHLORIDE 0.9% IVPB SCH ×2 (05:21→16:29)
[2019-01-05] MEDS: DAPTOMYCIN IVPB SCH ×2 (05:21→16:29)
[2019-01-05 06:27] LABS: ANION GAP 5 mmol/L (5-15); CALCIUM 8.8 mg/dL (8.5-10.1); CHLORIDE 109 mmol/L (98-107)
[2019-01-05 06:29] LABS: CREATININE 1.23 mg/dL (0.7-1.3)
[2019-01-05] MEDS: INSULIN REGULAR MEDIUM DOSE QDAY SQ-INSULIN SCH (08:53)
[2019-01-05] MEDS: LIDODERM 5% PATCH TD SCH (13:46)
[2019-01-05] MEDS ORDERED: MAGNESIUM SULFATE PMX 2GM/50ML 50 ML IV ONE (15:00)
[2019-01-05] MEDS ORDERED: FAT EMUL IV SCH (17:00)
[2019-01-05] MEDS ORDERED: [UNRECOGNIZED DRUG - OTHER] IV SCH (17:00)
[2019-01-05] MEDS ORDERED: AMINO ACID 10% IV SCH (17:00)
[2019-01-05] MEDS ORDERED: SMOF TPN IV SCH (17:00)
[2019-01-05] MEDS ORDERED: DEXTROSE 70% IV SCH (17:00)
[2019-01-05] MEDS: FILTER, DISP 1.2 MICRON FOR TPN/PVN IV PRN (21:30)
[2019-01-05 21:52] VITALS: BP 98/52
[2019-01-06] MEDS: MORPHINE SULFATE 4 MG/ML, 1ML IVPush PRN ×4 (04:15→23:30)
[2019-01-06] MEDS: MEROPENEM 1 GM in SODIUM CHLORIDE 0.9% 100 ML IV SCH ×2 (04:46→23:12)
[2019-01-06] MEDS: SODIUM CHLORIDE 0.9% IVPB SCH (05:48)
[2019-01-06] MEDS: DAPTOMYCIN IVPB SCH (05:48)
[2019-01-06] MEDS: INSULIN REGULAR MEDIUM DOSE QDAY SQ-INSULIN SCH (08:54)
[2019-01-06] MEDS: LIDODERM 5% PATCH TD SCH (10:15)
[2019-01-06 12:28] LABS: ANION GAP 7 mmol/L (5-15); CALCIUM 9.1 mg/dL (8.5-10.1); CHLORIDE 105 mmol/L (98-107); CREATININE 1.14 mg/dL (0.7-1.3)
[2019-01-06] MEDS ORDERED: DIPHENHYDRAMINE 50 MG/ML, 1ML IVPush ONE (13:30)
[2019-01-06 14:41] VITALS: BP 95/58
[2019-01-06] MEDS: FILTER, DISP 1.2 MICRON FOR TPN/PVN IV PRN (16:44)
[2019-01-06] MEDS ORDERED: AMINO ACID 10% IV SCH (17:00)
[2019-01-06] MEDS ORDERED: [UNRECOGNIZED DRUG - OTHER] IV SCH (17:00)
[2019-01-06] MEDS ORDERED: DEXTROSE 70% IV SCH (17:00)
[2019-01-06] MEDS ORDERED: FAT EMUL IV SCH (17:00)
[2019-01-06] MEDS ORDERED: SMOF TPN IV SCH (17:00)
[2019-01-07] MEDS: SODIUM CHLORIDE 0.9% IVPB SCH ×3 (00:13→23:42)
[2019-01-07] MEDS: DAPTOMYCIN IVPB SCH ×3 (00:13→23:42)
[2019-01-07 00:18] VITALS: BP 87/49
[2019-01-07 04:55] VITALS: BP 103/54
[2019-01-07] MEDS: MORPHINE SULFATE 4 MG/ML, 1ML IVPush PRN ×6 (04:55→23:42)
[2019-01-07 08:56] VITALS: BP 102/64
[2019-01-07] MEDS: INSULIN REGULAR MEDIUM DOSE QDAY SQ-INSULIN SCH (09:00)
[2019-01-07] MEDS: LIDODERM 5% PATCH TD SCH (10:34)
[2019-01-07] MEDS: MEROPENEM 1 GM in SODIUM CHLORIDE 0.9% 100 ML IV SCH ×2 (11:14→22:53)
[2019-01-07] MEDS ORDERED: FLUMAZENIL 0.1 MG/1 ML, 5ML ONE (12:44)
[2019-01-07] MEDS ORDERED: FENTANYL PF 100 MCG/2ML ONE (12:44)
[2019-01-07] MEDS ORDERED: MIDAZOLAM 1 MG/ML, 5ML ONE (12:44)
[2019-01-07] MEDS ORDERED: NALOXONE 1 MG/ML, 2ML ONE (12:44)
[2019-01-07] MEDS ORDERED: LIDOCAINE 1%, 20ML ONE (12:46)
[2019-01-07 14:33] VITALS: BP 99/55
[2019-01-07 16:28] LABS: ANION GAP 5 mmol/L (5-15); CHLORIDE 110 mmol/L (98-107)
[2019-01-07 16:34] LABS: CREATININE 1.05 mg/dL (0.7-1.3); PREALBUMIN 27.5 mg/dL (20.0-40.0)
[2019-01-07] MEDS ORDERED: DEXTROSE 70% IV SCH (17:00)
[2019-01-07] MEDS ORDERED: [UNRECOGNIZED DRUG - OTHER] IV SCH (17:00)
[2019-01-07] MEDS ORDERED: FAT EMUL IV SCH (17:00)
[2019-01-07] MEDS ORDERED: SMOF TPN IV SCH (17:00)
[2019-01-07] MEDS ORDERED: AMINO ACID 10% IV SCH (17:00)
[2019-01-07] MEDS: FILTER, DISP 1.2 MICRON FOR TPN/PVN IV PRN (18:08)
[2019-01-07 20:02] VITALS: BP 108/60
[2019-01-08] MEDS: MORPHINE SULFATE 4 MG/ML, 1ML IVPush PRN ×6 (05:25→21:52)
[2019-01-08] MEDS: INSULIN REGULAR MEDIUM DOSE QDAY SQ-INSULIN SCH (08:38)
[2019-01-08 11:52] VITALS: BP 100/67
[2019-01-08] MEDS: LIDODERM 5% PATCH TD SCH (14:14)
[2019-01-08] MEDS ORDERED: ACET325T14 PO (14:37)
[2019-01-08] MEDS ORDERED: ONDA4TAB12 PO (14:37)
[2019-01-08] MEDS ORDERED: INSU100V5 SQ-INSULIN (14:37)
[2019-01-08] MEDS ORDERED: MORP10SO PO (15:03)
[2019-01-08 16:05] LABS: ANION GAP 5 mmol/L (5-15); CALCIUM 8.9 mg/dL (8.5-10.1); CHLORIDE 102 mmol/L (98-107); CREATININE 1.22 mg/dL (0.7-1.3)
[2019-01-08] MEDS ORDERED: AMINO ACID 10% IV SCH (17:00)
[2019-01-08] MEDS ORDERED: [UNRECOGNIZED DRUG - OTHER] IV SCH (17:00)
[2019-01-08] MEDS ORDERED: DEXTROSE 70% IV SCH (17:00)
[2019-01-08] MEDS ORDERED: SMOF TPN IV SCH (17:00)
[2019-01-08] MEDS ORDERED: FAT EMUL IV SCH (17:00)
[2019-01-08] MEDS: FILTER, DISP 1.2 MICRON FOR TPN/PVN IV PRN (17:28)
[2019-01-08] MEDS: ONDANSETRON 4 MG TABLET PO PRN (18:41)
[2019-01-08 21:49] VITALS: BP 102/66
[2019-01-08] MEDS ORDERED: PROMETHAZINE 25 MG/ML, 1ML ONE (22:58)
[2019-01-08] MEDS ORDERED: PROMETHAZINE 25 MG/ML, 1ML IM PRN (23:00)
[2019-01-09] MEDS ORDERED: ONDANSETRON 2MG/ML, 2ML ONE (00:26)
[2019-01-09] MEDS: ONDANSETRON 2MG/ML, 2ML IVPush PRN ×3 (00:29→10:10)
[2019-01-09 00:31] VITALS: BP 117/70
[2019-01-09] MEDS: MORPHINE SULFATE 4 MG/ML, 1ML IVPush PRN ×4 (00:59→11:26)
[2019-01-09] MEDS: INSULIN REGULAR MEDIUM DOSE QDAY SQ-INSULIN SCH (09:00)
== END 2019-01-09 11:30 | disposition home or self-care (01) | DRG 871 ==
LOC: ED 21:44 → EDIP 22:52 → CCU 12-13 00:21 → 4WST 12-13 19:00 → 4NOR 12-20 00:25
PROVIDERS: ADMIT Family Medicine; ATTEND Family Medicine
PROC: 02PYX3Z Removal of Infusion Device from Great Vessel, External Approach (ICD-10-PCS; 2018-12-24)
PROC: 05HY33Z Insertion of Infusion Device into Upper Vein, Percutaneous Approach (ICD-10-PCS; principal; 2018-12-25)
PROC: B54MZZA Ultrasonography of Right Upper Extremity Veins, Guidance (ICD-10-PCS; 2018-12-25)
PROC: 0JH63XZ Insertion of Tunneled Vascular Access Device into Chest Subcutaneous Tissue and Fascia, Percutaneous Approach (ICD-10-PCS; 2019-01-07)
PROC: 02HV33Z Insertion of Infusion Device into Superior Vena Cava, Percutaneous Approach (ICD-10-PCS; 2019-01-07)
PROC: B5181ZA Fluoroscopy of Superior Vena Cava using Low Osmolar Contrast, Guidance (ICD-10-PCS; 2019-01-07)
PROC: B548ZZA Ultrasonography of Superior Vena Cava, Guidance (ICD-10-PCS; 2019-01-07)
DX: A41.59 Other Gram-negative sepsis (principal); J18.9 Pneumonia, unspecified organism; N17.0 Acute kidney failure with tubular necrosis; R57.1 Hypovolemic shock; R65.21 Severe sepsis with septic shock; E46 Unspecified protein-calorie malnutrition; Z68.42 Body mass index [BMI] 45.0-49.9, adult; G82.20 Paraplegia, unspecified; M00.9 Pyogenic arthritis, unspecified; K63.2 Fistula of intestine; M87.852 Other osteonecrosis, left femur; D63.8 Anemia in other chronic diseases classified elsewhere; D69.6 Thrombocytopenia, unspecified; E83.42 Hypomagnesemia; G89.29 Other chronic pain; I12.9 Hypertensive chronic kidney disease with stage 1 through stage 4 chronic kidney disease, or unspecified chronic kidney disease; K52.9 Noninfective gastroenteritis and colitis, unspecified; N18.9 Chronic kidney disease, unspecified; Z83.3 Family history of diabetes mellitus; Z85.830 Personal history of malignant neoplasm of bone; Z87.442 Personal history of urinary calculi; Z89.611 Acquired absence of right leg above knee; Z89.612 Acquired absence of left leg above knee; Z91.19 Patient's noncompliance with other medical treatment and regimen; Z93.3 Colostomy status; Z88.8 Allergy status to other drugs, medicaments and biological substances
CPT/HCPCS: 36415; 73502; 77001; 84145; 99291; J3475; J3490; 36558; 36573; 71045; 76937; 80048; 80053; 81001; 82550; 82962; 83540; 83550; 83605; 83735; 84100; 84134; 84478; 85025; 85651; 86140; 87040; 87070; 87075; 87077; 87081; 87086; 87102; 87186; 87324; 93005; 96365; 96368; 96375; 99156; 99157; G0378; J0610; J0878; J1885; J2020; J2185; J2250; J2405; J3010; J3370; Q0162; C1751; J1200; J2310; J3420; J7030; J7050

== ENCOUNTER 2019-01-10 18:56 | Emergency (ER) | payer MEDICAID ==
[~2019-01-10] VITALS: Ht 188 cm; Wt 70.0 kg
[~2019-01-10 18:56] MED LIST changes: +ACET325T14 PO; +INSU100V5 SQ-INSULIN; +MORP10SO PO; +ONDA4TAB12 PO
--- NOTE | 2019-01-10 19:12 | NUR ---
AUNM SCHAFER. CONNIE'd from [facility] yesterday after month long admit for sepsis. Had central line placed in right chest on Monday for TPN at home. HH RN changed dressing today. Here today with C/O pain at central line insertion site and RUE pain. Small amount of blood noted at insertion site. Placed on NIBP and pulse ox. Will continue to monitor.
--- NOTE | 2019-01-10 20:02 | NUR ---
MEHDI Costa and JENNIFER Del Rio changed central line. No bleeding or signs of infection.
[2019-01-10 20:35] VITALS: BP 128/78
--- NOTE | 2019-01-10 20:35 | NUR ---
Patient/Caregiver given discharge instructions and they have confirmed that they understand the instructions. Taken out in WC.
== END 2019-01-10 20:37 | disposition home or self-care (01) ==
LOC: ED 20:15
DX: T81.89XA Other complications of procedures, not elsewhere classified, initial encounter (principal); Z48.01 Encounter for change or removal of surgical wound dressing
CPT/HCPCS: 71045; 93005; 99283

== ENCOUNTER 2019-01-14 10:32 | Inpatient (IN) | payer MEDICAID ==
[~2019-01-14] VITALS: Ht 152.4 cm; Wt 68.0 kg
--- NOTE | 2019-01-14 10:51 | NUR ---
PT IS WEAK AND NAUSEATED SINCE THIS MORNING. DESPITE ZOFRAN ENROUTE CONTINUES TO BE NAUSEATED. PT STATES DISCHARGED FROM HOSPITAL ON MONDAY FOR POTENTIAL PICC LINE INFECTION. PT HAS FEVER TODAY. STERILE TECHNIQUE UTILIZTED TO CHANGE CAP ON PICC AND DRAW CULTURES AND LABS.
[2019-01-14] MEDS ORDERED: ACETAMINOPHEN 500 MG TABLET ONE (11:08)
[2019-01-14] MEDS ORDERED: SODIUM CHLORIDE FLUSH 10ML SYR IVF ONE (11:30)
[2019-01-14] MEDS ORDERED: ACETAMINOPHEN 500 MG TABLET PO ONE (11:30)
[2019-01-14] MEDS ORDERED: SODIUM CHLORIDE 0.9% 1,000ML IVBOLUS ONE (11:30)
[2019-01-14] MEDS ORDERED: METHOCARBAMOL 1,000 MG in DEXTROSE 5% 100 ML IV ONE (11:30)
[2019-01-14 11:48] LABS: BASOPHILS # (AUTO) 0.01 x10^3/uL (0-0.1); BASOPHILS % (AUTO) 0 % (0-1); EOSINOPHILS # (AUTO) 0.07 x10^3/uL (0-0.4); EOSINOPHILS % (AUTO) 1 % (1-7); LYMPHOCYTES # (AUTO) 0.23 x10^3/uL (1-3.4); LYMPHOCYTES % (AUTO) 4 % (22-44); MD NO; MEAN CORPUSCULAR HEMOGLOBIN 30.9 pg (27.5-34.5); MEAN CORPUSCULAR HGB CONC 34.3 g/dL (33.2-36.2); MEAN CORPUSCULAR VOLUME 90.1 fL (81-97); MEAN PLATELET VOLUME 9.4 fL (7.4-10.4); MONOCYTES # (AUTO) 0.33 x10^3/uL (0.2-0.8); MONOCYTES % (AUTO) 6 % (2-9); NEUTROPHILS # (AUTO) 4.79 x10^3/uL (1.8-6.8); NEUTROPHILS % (AUTO) 88 % (42-75); PLATELET COUNT 140 x10^3/uL (130-400); RED CELL DISTRIBUTION WIDTH 13.7 % (9.4-14.8)
[2019-01-14 11:57] LABS: ALANINE AMINOTRANSFERASE 109 U/L (12-78); ANION GAP 5 mmol/L (5-15); CALCIUM 8.3 mg/dL (8.5-10.1); CHLORIDE 104 mmol/L (98-107)
[2019-01-14 11:59] LABS: ALKALINE PHOSPHATASE 282 U/L (45-117); BILIRUBIN,TOTAL 0.9 mg/dL (0.2-1.0); CREATININE 1.29 mg/dL (0.7-1.3); TOTAL PROTEIN 7.4 g/dL (6.4-8.2)
[2019-01-14] MEDS ORDERED: ACETAMINOPHEN 650 MG/20.3 ML UDC ONE (12:11)
--- NOTE | 2019-01-14 12:27 | NUR ---
AT BEDSIDE OBTAINING FLU SWAB. MEDS STARTED PER ORDERS. PT ABLE TO GIVE URINE SAMPLE AFTER IV BOLUS. VS UPDATED
[2019-01-14 12:39] LABS: MICROSCOPIC AUTO
[2019-01-14 12:40] LABS: CULTURE INDICATED? NO
[2019-01-14 12:51] LABS: RAPID INFLUENZA A Negative (Negative)
[2019-01-14 12:52] LABS: RAPID INFLUENZA B Negative (Negative)
--- NOTE | 2019-01-14 14:04 | NUR ---
HOSPITALIST AT BEDSIDE EXAMINING PT
--- NOTE | 2019-01-14 14:15 | NUR ---
BACK AND HIP CRAMPING HAS GONE AWAY BUT CONTINUES TO HAVE HIP PAIN
[2019-01-14] MEDS ORDERED: ACETAMINOPHEN 325 MG TABLET PO PRN ×2 (14:30)
[2019-01-14] MEDS ORDERED: MORPHINE SULFATE 2 MG PO SCH (14:30)
[2019-01-14] MEDS ORDERED: ONDANSETRON 4 MG TABLET PO PRN (14:30)
--- NOTE | 2019-01-14 15:10 | NUR ---
BREAK RN: ATTEMPTED TO CALL REPORT, RECEIVING RN UNAVAILABLE AT THIS TIME, WILL CALL BACK.
--- NOTE | 2019-01-14 15:31 | NUR ---
REPORT TO MARTIN RODRIGUEZ. PT TO BE TRANSPORTED
--- NOTE | 2019-01-14 15:56 | NUR ---
FROM ER TO MRI WITH RADIOLOGY NURSE AND ER TECHS VIA PREET
[2019-01-14] MEDS ORDERED: FENTANYL PF 100 MCG/2ML ONE (15:57)
[2019-01-14] MEDS ORDERED: MIDAZOLAM 1 MG/ML, 5ML ONE (15:57)
[2019-01-14] MEDS: INSULIN REGULAR 100 UNITS/ML, 3ML VIAL SQ-INSULIN SCH ×2 (16:00→19:58)
[2019-01-14] MEDS ORDERED: TPN PER PHARMACY MC PRN (17:00)
[2019-01-14 17:10] VITALS: BP 102/63
[2019-01-14] MEDS: morphine SULFATE 10 MG/ML, 1ML IVPush PRN ×2 (17:12→20:21)
[2019-01-14] MEDS: ENOXAPARIN 40 MG/0.4 ML SQ SCH (18:01)
[2019-01-14] MEDS: NS + 20MEQ KCL 1,000 ML IV SCH (18:22)
[2019-01-14] MEDS: DAPTOMYCIN IV SCH (20:38)
[2019-01-14] MEDS: SODIUM CHLORIDE 0.9% IV SCH (20:38)
[2019-01-14] MEDS: MEROPENEM 1 GM in SODIUM CHLORIDE 0.9% 100 ML IV SCH (21:14)
[2019-01-15] MEDS: morphine SULFATE 10 MG/ML, 1ML IVPush PRN ×4 (00:06→14:48)
[2019-01-15] MEDS: NS + 20MEQ KCL 1,000 ML IV SCH (03:52)
[2019-01-15 04:04] VITALS: BP 87/52
[2019-01-15 04:23] LABS: MEAN CORPUSCULAR HEMOGLOBIN 31.3 pg (27.5-34.5); MEAN CORPUSCULAR HGB CONC 34.9 g/dL (33.2-36.2); MEAN CORPUSCULAR VOLUME 89.9 fL (81-97); RED BLOOD COUNT 3.05 x10^6/uL (4.38-5.82)
[2019-01-15] MEDS ORDERED: ACETAMINOPHEN 650 MG/20.3 ML UDC ONE (04:25)
[2019-01-15 04:29] VITALS: BP 93/58
[2019-01-15] MEDS ORDERED: ACETAMINOPHEN 650 MG/20.3 ML UDC PO PRN (04:30)
[2019-01-15 04:31] LABS: ANION GAP 6 mmol/L (5-15); CALCIUM 7.8 mg/dL (8.5-10.1); CHLORIDE 105 mmol/L (98-107); CREATININE 1.41 mg/dL (0.7-1.3)
[2019-01-15 04:32] LABS: CREATINE KINASE, TOTAL 36 U/L (39-308)
[2019-01-15 05:30] LABS: BASOPHILS % (AUTO) 0 % (0-1); EOSINOPHILS # (AUTO) 0.01 x10^3/uL (0-0.4); EOSINOPHILS % (AUTO) 0 % (1-7); LYMPHOCYTES % (AUTO) 10 % (22-44); MD MORPH REVIEW ONLY; MEAN PLATELET VOLUME 9.1 fL (7.4-10.4); MONOCYTES # (AUTO) 0.15 x10^3/uL (0.2-0.8); MONOCYTES % (AUTO) 5 % (2-9); NEUTROPHILS # (AUTO) 2.55 x10^3/uL (1.8-6.8); NEUTROPHILS % (AUTO) 85 % (42-75); PLATELET COUNT 110 x10^3/uL (130-400)
[2019-01-15 05:32] LABS: <PLATELET ESTIMATE> DECREASED; <RBC MORPHOLOGY> NORMAL; LARGE PLATELETS 1+
[2019-01-15 06:15] VITALS: BP 87/51
[2019-01-15] MEDS: INSULIN REGULAR 100 UNITS/ML, 3ML VIAL SQ-INSULIN SCH ×4 (07:00→20:28)
[2019-01-15] MEDS: MEROPENEM 1 GM in SODIUM CHLORIDE 0.9% 100 ML IV SCH ×2 (07:53→20:00)
[2019-01-15] MEDS ORDERED: SODIUM CHLORIDE 0.9% 1,000 ML IV SCH (08:30)
[2019-01-15] MEDS ORDERED: FILTER, DISP 1.2 MICRON FOR TPN/PVN IV PRN (09:00)
[2019-01-15 10:32] VITALS: BP 98/66
[2019-01-15] MEDS: MICAFUNGIN 100 MG in SODIUM CHLORIDE 0.9% 100 ML IV SCH (13:22)
[2019-01-15] MEDS: ENOXAPARIN 40 MG/0.4 ML SQ SCH (14:30)
[2019-01-15] MEDS ORDERED: PVN PER PHARMACY MC SCH (14:30)
[2019-01-15] MEDS ORDERED: LIDOCAINE-MPF 1%, 5ML ONE (14:47)
[2019-01-15] MEDS: SODIUM CHLORIDE 0.9% 1,000 ML IV SCH (16:30)
[2019-01-15] MEDS ORDERED: AMINO ACID 10% IV SCH ×2 (17:00)
[2019-01-15] MEDS ORDERED: DEXTROSE 70% IV SCH ×2 (17:00)
[2019-01-15] MEDS ORDERED: DEXTROSE 50%, 50ML SYRINGE IVPush PRN (17:00)
[2019-01-15] MEDS ORDERED: [UNRECOGNIZED DRUG - OTHER] IV SCH (17:00)
[2019-01-15] MEDS ORDERED: SMOF TPN IV SCH ×2 (17:00)
[2019-01-15] MEDS ORDERED: DEXTROSE 10% 500 ML IV PRN (17:00)
[2019-01-15] MEDS ORDERED: [UNRECOGNIZED DRUG - OTHER] IV SCH (17:00)
[2019-01-15] MEDS ORDERED: FAT EMUL IV SCH ×2 (17:00)
[2019-01-15] MEDS: SODIUM CHLORIDE 0.9% IV SCH (20:00)
[2019-01-15] MEDS: DAPTOMYCIN IV SCH (20:00)
[2019-01-15] MEDS ORDERED: morphine SULFATE ORAL.CONC 20 MG/ML PO PRN (21:00)
[2019-01-15] MEDS: morphine SULFATE ORAL.CONC 20 MG/ML PO PRN (23:08)
[2019-01-16] MEDS: SODIUM CHLORIDE 0.9% 1,000 ML IV SCH ×3 (02:30→20:43)
[2019-01-16] MEDS ORDERED: morphine SULFATE ORAL.CONC 20 MG/ML PO PRN (03:00)
[2019-01-16] MEDS: INSULIN REGULAR 100 UNITS/ML, 3ML VIAL SQ-INSULIN SCH ×4 (07:21→20:43)
[2019-01-16] MEDS: MEROPENEM 1 GM in SODIUM CHLORIDE 0.9% 100 ML IV SCH ×2 (08:03→15:21)
[2019-01-16] MEDS: MICAFUNGIN 100 MG in SODIUM CHLORIDE 0.9% 100 ML IV SCH ×2 (12:02→16:15)
[2019-01-16] MEDS: ENOXAPARIN 40 MG/0.4 ML SQ SCH (14:57)
[2019-01-16] MEDS: DAPTOMYCIN IV SCH (20:43)
[2019-01-16] MEDS: SODIUM CHLORIDE 0.9% IV SCH (20:43)
[2019-01-17] MEDS: morphine SULFATE 10 MG/ML, 1ML IVPush PRN ×7 (00:13→21:18)
[2019-01-17] MEDS: MEROPENEM 1 GM in SODIUM CHLORIDE 0.9% 100 ML IV SCH ×2 (03:03→15:16)
[2019-01-17] MEDS: INSULIN REGULAR 100 UNITS/ML, 3ML VIAL SQ-INSULIN SCH ×4 (07:00→19:47)
[2019-01-17 08:00] VITALS: BP 103/69
[2019-01-17 11:45] LABS: BASOPHILS % (AUTO) 0 % (0-1); EOSINOPHILS # (AUTO) 0.39 x10^3/uL (0-0.4); EOSINOPHILS % (AUTO) 10 % (1-7); LYMPHOCYTES # (AUTO) 0.88 x10^3/uL (1-3.4); LYMPHOCYTES % (AUTO) 22 % (22-44); MD NO; MEAN CORPUSCULAR HEMOGLOBIN 30.6 pg (27.5-34.5); MEAN CORPUSCULAR HGB CONC 34.1 g/dL (33.2-36.2); MEAN CORPUSCULAR VOLUME 89.7 fL (81-97); MEAN PLATELET VOLUME 9.4 fL (7.4-10.4); MONOCYTES # (AUTO) 0.27 x10^3/uL (0.2-0.8); MONOCYTES % (AUTO) 7 % (2-9); NEUTROPHILS # (AUTO) 2.41 x10^3/uL (1.8-6.8); NEUTROPHILS % (AUTO) 61 % (42-75); PLATELET COUNT 128 x10^3/uL (130-400); RED BLOOD COUNT 3.46 x10^6/uL (4.38-5.82); RED CELL DISTRIBUTION WIDTH 13.9 % (9.4-14.8)
[2019-01-17 12:02] LABS: ALBUMIN 2.7 g/dL (3.4-5.0); ANION GAP 6 mmol/L (5-15); CALCIUM 8.8 mg/dL (8.5-10.1); CHLORIDE 111 mmol/L (98-107); CREATININE 1.17 mg/dL (0.7-1.3)
[2019-01-17 12:12] LABS: ALANINE AMINOTRANSFERASE 64 U/L (12-78); ALKALINE PHOSPHATASE 264 U/L (45-117); BILIRUBIN,TOTAL 0.8 mg/dL (0.2-1.0); TOTAL PROTEIN 7.2 g/dL (6.4-8.2)
[2019-01-17] MEDS: SODIUM CHLORIDE 0.9% 1,000 ML IV SCH ×2 (12:15→23:50)
[2019-01-17] MEDS: ENOXAPARIN 40 MG/0.4 ML SQ SCH (14:30)
[2019-01-17] MEDS ORDERED: [UNRECOGNIZED DRUG - OTHER] IV SCH (17:00)
[2019-01-17] MEDS ORDERED: FILTER, DISP 1.2 MICRON FOR TPN/PVN IV PRN (17:00)
[2019-01-17] MEDS ORDERED: AMINO ACID 10% IV SCH (17:00)
[2019-01-17] MEDS ORDERED: FAT EMUL IV SCH (17:00)
[2019-01-17] MEDS ORDERED: DEXTROSE 70% IV SCH (17:00)
[2019-01-17] MEDS ORDERED: SMOF TPN IV SCH (17:00)
[2019-01-17] MEDS: MICAFUNGIN 100 MG in SODIUM CHLORIDE 0.9% 100 ML IV SCH (17:33)
[2019-01-17] MEDS: CHOLESTYRAMINE LIGHT 4GM PACKET PO SCH ×2 (17:33→21:00)
[2019-01-17] MEDS: MUPIROCIN OINT 2%, 22GM TP SCH (18:41)
[2019-01-17 21:00] VITALS: BP 99/67
[2019-01-18 03:00] VITALS: BP 104/66
[2019-01-18] MEDS: MEROPENEM 1 GM in SODIUM CHLORIDE 0.9% 100 ML IV SCH ×2 (03:39→15:22)
[2019-01-18] MEDS ORDERED: MORPHINE SULFATE 4 MG/ML, 1ML ONE (03:45)
[2019-01-18] MEDS: morphine SULFATE 10 MG/ML, 1ML IVPush PRN ×5 (03:48→21:54)
[2019-01-18] MEDS: MUPIROCIN OINT 2%, 22GM TP SCH ×2 (06:00→18:00)
[2019-01-18] MEDS: CHOLESTYRAMINE LIGHT 4GM PACKET PO SCH ×4 (07:00→21:00)
[2019-01-18] MEDS: SODIUM CHLORIDE 0.9% 1,000 ML IV SCH ×2 (12:03→23:21)
[2019-01-18] MEDS: ENOXAPARIN 40 MG/0.4 ML SQ SCH (14:30)
[2019-01-18] MEDS ORDERED: DIPHENHYDRAMINE 50 MG/ML, 1ML IVPush ONE (14:30)
[2019-01-18 14:48] VITALS: BP 103/70
[2019-01-18] MEDS: MICAFUNGIN 100 MG in SODIUM CHLORIDE 0.9% 100 ML IV SCH (16:45)
[2019-01-18 21:40] VITALS: BP 102/66
[2019-01-18] MEDS: CALCIUM CARBONATE 500 MG TAB.CHEW PO PRN (23:21)
[2019-01-19] MEDS: morphine SULFATE 10 MG/ML, 1ML IVPush PRN ×5 (01:51→23:34)
[2019-01-19] MEDS: MEROPENEM 1 GM in SODIUM CHLORIDE 0.9% 100 ML IV SCH ×2 (03:19→15:53)
[2019-01-19] MEDS: MUPIROCIN OINT 2%, 22GM TP SCH ×2 (06:00→18:04)
[2019-01-19] MEDS: CHOLESTYRAMINE LIGHT 4GM PACKET PO SCH ×4 (07:00→19:48)
[2019-01-19] MEDS ORDERED: DIPHENHYDRAMINE 50 MG/ML, 1ML IVPush ONE (11:00)
[2019-01-19] MEDS: SODIUM CHLORIDE 0.9% 1,000 ML IV SCH ×2 (11:18→19:41)
[2019-01-19] MEDS ORDERED: DIPHENHYDRAMINE 50 MG/ML, 1ML IVPush PRN (11:30)
[2019-01-19] MEDS: ENOXAPARIN 40 MG/0.4 ML SQ SCH (14:30)
[2019-01-19] MEDS: MICAFUNGIN 100 MG in SODIUM CHLORIDE 0.9% 100 ML IV SCH (16:57)
[2019-01-19 19:50] VITALS: BP 100/68
[2019-01-20] MEDS: MEROPENEM 1 GM in SODIUM CHLORIDE 0.9% 100 ML IV SCH ×2 (02:17→15:29)
[2019-01-20] MEDS: morphine SULFATE 10 MG/ML, 1ML IVPush PRN ×5 (03:24→21:52)
[2019-01-20] MEDS: SODIUM CHLORIDE 0.9% 1,000 ML IV SCH ×2 (05:46→16:31)
[2019-01-20] MEDS: MUPIROCIN OINT 2%, 22GM TP SCH (06:00)
[2019-01-20] MEDS: CHOLESTYRAMINE LIGHT 4GM PACKET PO SCH (07:00)
[2019-01-20] MEDS ORDERED: DIPHENHYDRAMINE 25 MG CAPSULE PO PRN (07:30)
[2019-01-20 14:55] VITALS: BP 96/60
[2019-01-20] MEDS: DIPHENHYDRAMINE 50 MG/ML, 1ML IVPush PRN ×2 (15:26→22:29)
[2019-01-20] MEDS: MICAFUNGIN 100 MG in SODIUM CHLORIDE 0.9% 100 ML IV SCH (16:31)
[2019-01-21] MEDS: SODIUM CHLORIDE 0.9% 1,000 ML IV SCH ×2 (02:08→15:02)
[2019-01-21] MEDS: MEROPENEM 1 GM in SODIUM CHLORIDE 0.9% 100 ML IV SCH ×2 (02:08→14:39)
[2019-01-21] MEDS: morphine SULFATE 10 MG/ML, 1ML IVPush PRN ×5 (06:35→23:00)
[2019-01-21] MEDS: DIPHENHYDRAMINE 50 MG/ML, 1ML IVPush PRN ×2 (11:40→19:26)
[2019-01-21 15:05] VITALS: BP 109/68
[2019-01-21] MEDS: MICAFUNGIN 100 MG in SODIUM CHLORIDE 0.9% 100 ML IV SCH (17:26)
[2019-01-21 19:25] VITALS: BP 104/70
[2019-01-22] MEDS: MEROPENEM 1 GM in SODIUM CHLORIDE 0.9% 100 ML IV SCH ×2 (02:01→15:07)
[2019-01-22] MEDS: DIPHENHYDRAMINE 50 MG/ML, 1ML IVPush PRN ×3 (03:51→23:32)
[2019-01-22] MEDS: morphine SULFATE 10 MG/ML, 1ML IVPush PRN ×4 (03:51→21:28)
[2019-01-22] MEDS: ERGOCALCIFEROL 8,000UNIT/ML PO SCH (08:12)
[2019-01-22] MEDS: SODIUM CHLORIDE 0.9% 1,000 ML IV SCH (15:11)
[2019-01-22] MEDS: MICAFUNGIN 100 MG in SODIUM CHLORIDE 0.9% 100 ML IV SCH (16:51)
[2019-01-23] MEDS: morphine SULFATE 10 MG/ML, 1ML IVPush PRN ×5 (01:13→17:56)
[2019-01-23] MEDS: MEROPENEM 1 GM in SODIUM CHLORIDE 0.9% 100 ML IV SCH ×2 (04:10→16:05)
[2019-01-23] MEDS: SODIUM CHLORIDE 0.9% 1,000 ML IV SCH ×2 (04:10→16:53)
[2019-01-23] MEDS: DIPHENHYDRAMINE 50 MG/ML, 1ML IVPush PRN (07:44)
[2019-01-23] MEDS: ERGOCALCIFEROL 8,000UNIT/ML PO SCH (07:45)
[2019-01-23] MEDS: CALCIUM CARBONATE 500 MG TAB.CHEW PO PRN (09:50)
[2019-01-23 15:56] LABS: ANION GAP 9 mmol/L (5-15); BASOPHILS # (AUTO) 0.02 x10^3/uL (0-0.1); BASOPHILS % (AUTO) 0 % (0-1); CALCIUM 8.7 mg/dL (8.5-10.1); CHLORIDE 108 mmol/L (98-107); EOSINOPHILS # (AUTO) 0.36 x10^3/uL (0-0.4); EOSINOPHILS % (AUTO) 9 % (1-7); LYMPHOCYTES # (AUTO) 0.86 x10^3/uL (1-3.4); LYMPHOCYTES % (AUTO) 20 % (22-44); MD NO; MEAN CORPUSCULAR HEMOGLOBIN 30.6 pg (27.5-34.5); MEAN CORPUSCULAR VOLUME 92.7 fL (81-97); MEAN PLATELET VOLUME 8.6 fL (7.4-10.4); MONOCYTES # (AUTO) 0.28 x10^3/uL (0.2-0.8); MONOCYTES % (AUTO) 6 % (2-9); NEUTROPHILS # (AUTO) 2.77 x10^3/uL (1.8-6.8); NEUTROPHILS % (AUTO) 65 % (42-75); PLATELET COUNT 192 x10^3/uL (130-400); RED BLOOD COUNT 3.82 x10^6/uL (4.38-5.82); RED CELL DISTRIBUTION WIDTH 14.4 % (9.4-14.8)
[2019-01-23] MEDS ORDERED: DIPHENHYDRAMINE 50 MG/ML, 1ML IVPush ONE (16:00)
[2019-01-23] MEDS: MICAFUNGIN 100 MG in SODIUM CHLORIDE 0.9% 100 ML IV SCH (16:53)
[2019-01-23] MEDS: CLOTRIM/BETAMETH 1%/0.05% CRM TP SCH (21:00)
[2019-01-23] MEDS ORDERED: D5%-0.45NACL+KCL 20MEQ 1,000 ML IV SCH (23:55)
[2019-01-24] MEDS: MEROPENEM 1 GM in SODIUM CHLORIDE 0.9% 100 ML IV SCH ×3 (03:53→16:08)
[2019-01-24 05:38] VITALS: BP 106/67
[2019-01-24] MEDS: morphine SULFATE 10 MG/ML, 1ML IVPush PRN ×5 (05:53→23:31)
[2019-01-24 08:34] VITALS: BP 97/63
[2019-01-24] MEDS: DIPHENHYDRAMINE 50 MG/ML, 1ML IVPush PRN ×3 (08:39→23:31)
[2019-01-24] MEDS: ERGOCALCIFEROL 8,000UNIT/ML PO SCH (09:00)
[2019-01-24] MEDS ORDERED: MAGNESIUM SULFATE PMX 2GM/50ML 50 ML IV ONE (09:00)
[2019-01-24] MEDS: CLOTRIM/BETAMETH 1%/0.05% CRM TP SCH ×2 (09:00→21:05)
[2019-01-24] MEDS: SODIUM CHLORIDE 0.9% 1,000 ML IV SCH (12:30)
[2019-01-24 17:03] VITALS: BP 108/70
[2019-01-24] MEDS: MICAFUNGIN 100 MG in SODIUM CHLORIDE 0.9% 100 ML IV SCH (17:09)
[2019-01-24 21:05] VITALS: BP 96/64
[2019-01-25] MEDS: MEROPENEM 1 GM in SODIUM CHLORIDE 0.9% 100 ML IV SCH (02:56)
[2019-01-25] MEDS: DIPHENHYDRAMINE 50 MG/ML, 1ML IVPush PRN ×3 (06:50→20:55)
[2019-01-25] MEDS: morphine SULFATE 10 MG/ML, 1ML IVPush PRN ×4 (06:50→21:49)
[2019-01-25] MEDS: CLOTRIM/BETAMETH 1%/0.05% CRM TP SCH ×2 (09:00→20:57)
[2019-01-25] MEDS: ERGOCALCIFEROL 8,000UNIT/ML PO SCH (09:00)
[2019-01-25] MEDS: MICAFUNGIN 100 MG in SODIUM CHLORIDE 0.9% 100 ML IV SCH (14:47)
[2019-01-26] MEDS: morphine SULFATE 10 MG/ML, 1ML IVPush PRN ×7 (00:58→22:59)
[2019-01-26 01:02] VITALS: BP 97/62
[2019-01-26] MEDS: DIPHENHYDRAMINE 50 MG/ML, 1ML IVPush PRN ×3 (04:10→19:48)
[2019-01-26] MEDS: ERGOCALCIFEROL 8,000UNIT/ML PO SCH (08:17)
[2019-01-26] MEDS: CLOTRIM/BETAMETH 1%/0.05% CRM TP SCH ×2 (08:17→19:43)
[2019-01-26] MEDS: MICAFUNGIN 100 MG in SODIUM CHLORIDE 0.9% 100 ML IV SCH (16:02)
[2019-01-27] MEDS: morphine SULFATE 10 MG/ML, 1ML IVPush PRN ×5 (01:50→20:53)
[2019-01-27] MEDS: DIPHENHYDRAMINE 50 MG/ML, 1ML IVPush PRN ×3 (04:06→20:53)
[2019-01-27] MEDS: CLOTRIM/BETAMETH 1%/0.05% CRM TP SCH ×2 (12:17→20:53)
[2019-01-27] MEDS: ERGOCALCIFEROL 8,000UNIT/ML PO SCH (12:17)
[2019-01-27 12:45] VITALS: BP 104/70
[2019-01-27] MEDS: FLUCONAZOLE 400 MG/200 ML 200 ML IV SCH (13:16)
[2019-01-28] MEDS: morphine SULFATE 10 MG/ML, 1ML IVPush PRN ×4 (00:01→09:48)
[2019-01-28] MEDS: DIPHENHYDRAMINE 50 MG/ML, 1ML IVPush PRN ×4 (03:30→23:19)
[2019-01-28] MEDS: CLOTRIM/BETAMETH 1%/0.05% CRM TP SCH ×2 (09:00→20:48)
[2019-01-28] MEDS: ERGOCALCIFEROL 8,000UNIT/ML PO SCH (09:00)
[2019-01-28 10:00] VITALS: BP 92/59
[2019-01-28] MEDS ORDERED: MAGNESIUM SULFATE PMX 2GM/50ML 50 ML IV ONE (10:00)
[2019-01-28] MEDS ORDERED: MORPHINE SULFATE 4 MG/ML, 1ML IVPush PRN (10:30)
[2019-01-28] MEDS: FLUCONAZOLE 400 MG/200 ML 200 ML IV SCH (11:54)
[2019-01-28] MEDS: CETIRIZINE 1 MG/ML ORAL SOL PO SCH (11:54)
[2019-01-28] MEDS: MORPHINE SULFATE 4 MG/ML, 1ML IVPush PRN ×3 (14:20→20:44)
[2019-01-28 14:30] VITALS: BP 93/57
[2019-01-28 20:10] VITALS: BP 99/64
[2019-01-29] MEDS: MORPHINE SULFATE 4 MG/ML, 1ML IVPush PRN ×3 (00:48→20:48)
[2019-01-29] MEDS: ERGOCALCIFEROL 8,000UNIT/ML PO SCH (09:00)
[2019-01-29] MEDS: CLOTRIM/BETAMETH 1%/0.05% CRM TP SCH ×2 (09:00→20:55)
[2019-01-29 09:15] VITALS: BP 88/56
[2019-01-29] MEDS: FLUCONAZOLE 400 MG/200 ML 200 ML IV SCH (13:14)
[2019-01-29] MEDS: CETIRIZINE 1 MG/ML ORAL SOL PO SCH (13:14)
[2019-01-29 17:00] VITALS: BP 100/71
[2019-01-29] MEDS: DIPHENHYDRAMINE 50 MG/ML, 1ML IVPush PRN ×2 (17:37→23:34)
[2019-01-29 20:45] VITALS: BP 96/62
[2019-01-30] MEDS: MORPHINE SULFATE 4 MG/ML, 1ML IVPush PRN ×4 (00:54→19:34)
[2019-01-30] MEDS: DIPHENHYDRAMINE 50 MG/ML, 1ML IVPush PRN ×3 (06:39→22:32)
[2019-01-30] MEDS: ERGOCALCIFEROL 8,000UNIT/ML PO SCH (08:55)
[2019-01-30] MEDS: CETIRIZINE 1 MG/ML ORAL SOL PO SCH (08:55)
[2019-01-30] MEDS: CLOTRIM/BETAMETH 1%/0.05% CRM TP SCH ×2 (08:55→19:39)
[2019-01-30 11:47] VITALS: BP 94/58
[2019-01-31 00:15] VITALS: BP 92/60
[2019-01-31] MEDS: MORPHINE SULFATE 4 MG/ML, 1ML IVPush PRN ×3 (00:17→21:20)
[2019-01-31] MEDS: ERGOCALCIFEROL 8,000UNIT/ML PO SCH (09:00)
[2019-01-31] MEDS: CETIRIZINE 1 MG/ML ORAL SOL PO SCH (09:00)
[2019-01-31] MEDS: CLOTRIM/BETAMETH 1%/0.05% CRM TP SCH ×2 (09:00→21:00)
[2019-01-31] MEDS: DIPHENHYDRAMINE 50 MG/ML, 1ML IVPush PRN ×2 (11:27→17:24)
[2019-01-31 12:48] VITALS: BP 85/54
[2019-02-01] MEDS: DIPHENHYDRAMINE 50 MG/ML, 1ML IVPush PRN ×2 (00:29→18:40)
[2019-02-01] MEDS: CLOTRIM/BETAMETH 1%/0.05% CRM TP SCH ×2 (09:00→21:00)
[2019-02-01] MEDS: CETIRIZINE 1 MG/ML ORAL SOL PO SCH (09:00)
[2019-02-01] MEDS: ERGOCALCIFEROL 8,000UNIT/ML PO SCH (09:00)
[2019-02-01] MEDS ORDERED: LIDOCAINE-MPF 1%, 5ML ONE (10:59)
[2019-02-01] MEDS ORDERED: MIDAZOLAM 1 MG/ML, 5ML ONE (11:16)
[2019-02-01] MEDS ORDERED: FLUMAZENIL 0.1 MG/1 ML, 5ML ONE (11:16)
[2019-02-01] MEDS ORDERED: FENTANYL PF 100 MCG/2ML ONE (11:16)
[2019-02-01] MEDS ORDERED: NALOXONE 1 MG/ML, 2ML ONE (11:17)
[2019-02-01 18:36] VITALS: BP 94/67
[2019-02-01] MEDS: MORPHINE SULFATE 4 MG/ML, 1ML IVPush PRN ×2 (18:40→22:00)
[2019-02-02] MEDS: DIPHENHYDRAMINE 50 MG/ML, 1ML IVPush PRN (00:26)
[2019-02-02] MEDS: MORPHINE SULFATE 4 MG/ML, 1ML IVPush PRN (02:51)
[2019-02-02 02:54] VITALS: BP 90/57
[2019-02-02] MEDS: ERGOCALCIFEROL 8,000UNIT/ML PO SCH (09:00)
[2019-02-02] MEDS: CETIRIZINE 1 MG/ML ORAL SOL PO SCH (09:00)
[2019-02-02] MEDS: CLOTRIM/BETAMETH 1%/0.05% CRM TP SCH ×2 (09:00→21:00)
[2019-02-02] MEDS ORDERED: DIPHENHYDRAMINE 12.5MG/5ML, 10ML UDC PO PRN (14:00)
[2019-02-02 15:25] VITALS: BP 90/59
[2019-02-02 16:24] LABS: ANION GAP 7 mmol/L (5-15); CALCIUM 9.1 mg/dL (8.5-10.1); CHLORIDE 105 mmol/L (98-107); CREATININE 2.26 mg/dL (0.7-1.3)
[2019-02-02] MEDS ORDERED: DEXTROSE 50%, 50ML SYRINGE IVPush PRN (17:00)
[2019-02-02] MEDS ORDERED: [UNRECOGNIZED DRUG - OTHER] IV SCH (17:00)
[2019-02-02] MEDS ORDERED: AMINO ACID 10% IV SCH ×3 (17:00)
[2019-02-02] MEDS ORDERED: TPN PER PHARMACY MC PRN (17:00)
[2019-02-02] MEDS ORDERED: [UNRECOGNIZED DRUG - OTHER] IV SCH ×2 (17:00)
[2019-02-02] MEDS ORDERED: SMOF TPN IV SCH ×3 (17:00)
[2019-02-02] MEDS ORDERED: FAT EMUL IV SCH ×3 (17:00)
[2019-02-02] MEDS ORDERED: DEXTROSE 70% IV SCH ×3 (17:00)
[2019-02-02] MEDS: FILTER, DISP 1.2 MICRON FOR TPN/PVN IV PRN (17:53)
[2019-02-02] MEDS: LACTATED RINGERS 1,000 ML IV SCH (17:54)
[2019-02-02] MEDS: INSULIN REGULAR LOW DOSE Q6H X 48HRS SQ-INSULIN SCH ×2 (22:51→23:03)
[2019-02-03] MEDS: INSULIN REGULAR LOW DOSE Q6H X 48HRS SQ-INSULIN SCH ×4 (05:00→22:50)
[2019-02-03] MEDS: LACTATED RINGERS 1,000 ML IV SCH ×2 (05:41)
[2019-02-03 07:19] LABS: ANION GAP 5 mmol/L (5-15); CALCIUM 8.8 mg/dL (8.5-10.1); CHLORIDE 105 mmol/L (98-107); CREATININE 1.78 mg/dL (0.7-1.3)
[2019-02-03] MEDS ORDERED: LACTATED RINGERS 1,000 ML IV SCH ×2 (09:00→14:00)
[2019-02-03] MEDS: CLOTRIM/BETAMETH 1%/0.05% CRM TP SCH ×2 (09:00→20:50)
[2019-02-03] MEDS: ERGOCALCIFEROL 8,000UNIT/ML PO SCH (09:00)
[2019-02-03] MEDS: CETIRIZINE 1 MG/ML ORAL SOL PO SCH (09:00)
[2019-02-03 13:40] LABS: ANION GAP 7 mmol/L (5-15); CALCIUM 9.1 mg/dL (8.5-10.1); CHLORIDE 107 mmol/L (98-107); CREATININE 1.66 mg/dL (0.7-1.3)
[2019-02-03] MEDS ORDERED: LACTATED RINGERS 1,000 ML IVBOLUS ONE (14:00)
[2019-02-03] MEDS: morphine SULFATE ORAL.CONC 20 MG/ML PO PRN ×2 (14:34→23:04)
[2019-02-03] MEDS ORDERED: AMINO ACID 10% IV SCH ×3 (17:00→20:00)
[2019-02-03] MEDS ORDERED: [UNRECOGNIZED DRUG - OTHER] IV SCH ×2 (17:00)
[2019-02-03] MEDS ORDERED: DEXTROSE 70% IV SCH ×3 (17:00→20:00)
[2019-02-03] MEDS ORDERED: FAT EMUL IV SCH ×3 (17:00→20:00)
[2019-02-03] MEDS ORDERED: SMOF TPN IV SCH ×3 (17:00→20:00)
[2019-02-03 18:30] VITALS: BP 111/66
[2019-02-03] MEDS ORDERED: [UNRECOGNIZED DRUG - OTHER] IV SCH (20:00)
[2019-02-03] MEDS: FILTER, DISP 1.2 MICRON FOR TPN/PVN IV PRN (20:49)
[2019-02-04] MEDS ORDERED: DIPHENHYDRAMINE 50 MG CAPSULE PO PRN (00:30)
[2019-02-04] MEDS ORDERED: morphine SULFATE ORAL.CONC 20 MG/ML PO PRN (00:30)
[2019-02-04] MEDS ORDERED: DIPHENHYDRAMINE 12.5MG/5ML, 10ML UDC PO PRN (00:30)
[2019-02-04] MEDS: INSULIN REGULAR LOW DOSE Q6H X 48HRS SQ-INSULIN SCH ×2 (05:00→11:00)
[2019-02-04] MEDS: morphine SULFATE ORAL.CONC 20 MG/ML PO PRN (07:05)
[2019-02-04 07:07] VITALS: BP 105/68
[2019-02-04 08:28] LABS: ALBUMIN 2.6 g/dL (3.4-5.0); ANION GAP 7 mmol/L (5-15); CALCIUM 8.8 mg/dL (8.5-10.1); CHLORIDE 106 mmol/L (98-107); CREATININE 1.17 mg/dL (0.7-1.3)
[2019-02-04] MEDS: ERGOCALCIFEROL 8,000UNIT/ML PO SCH (09:00)
[2019-02-04] MEDS: CLOTRIM/BETAMETH 1%/0.05% CRM TP SCH (09:00)
[2019-02-04] MEDS: CETIRIZINE 1 MG/ML ORAL SOL PO SCH (09:00)
[2019-02-04] MEDS ORDERED: POTASSIUM PHOSPHATE 22 MEQ in SODIUM CHLORIDE 0.9% 500 ML IV ONE (10:00)
[2019-02-04] MEDS ORDERED: [UNRECOGNIZED DRUG - OTHER] TP (12:24)
[2019-02-04] MEDS ORDERED: Tpn Per Pharmacy MC (12:25)
[2019-02-04] MEDS ORDERED: ERGO800010 PO (12:25)
== END 2019-02-04 16:23 | disposition home health service (06) | DRG 314 ==
LOC: ED 13:38 → EDIP 13:45 → 3NW 14:53
PROVIDERS: ADMIT Hospitalist; ATTEND Hospitalist
PROC: 05PYX3Z Removal of Infusion Device from Upper Vein, External Approach (ICD-10-PCS; principal; 2019-01-15)
PROC: 05HY33Z Insertion of Infusion Device into Upper Vein, Percutaneous Approach (ICD-10-PCS; 2019-01-16)
PROC: B54MZZA Ultrasonography of Right Upper Extremity Veins, Guidance (ICD-10-PCS; 2019-01-16)
PROC: 05JY3ZZ Inspection of Upper Vein, Percutaneous Approach (ICD-10-PCS; 2019-01-31)
PROC: 05HY33Z Insertion of Infusion Device into Upper Vein, Percutaneous Approach (ICD-10-PCS; 2019-02-01)
PROC: B5131ZA Fluoroscopy of Right Jugular Veins using Low Osmolar Contrast, Guidance (ICD-10-PCS; 2019-02-01)
PROC: B543ZZA Ultrasonography of Right Jugular Veins, Guidance (ICD-10-PCS; 2019-02-01)
DX: T80.219A Unspecified infection due to central venous catheter, initial encounter (principal); A41.9 Sepsis, unspecified organism; E43 Unspecified severe protein-calorie malnutrition; M87.9 Osteonecrosis, unspecified; N17.9 Acute kidney failure, unspecified; E87.1 Hypo-osmolality and hyponatremia; F11.20 Opioid dependence, uncomplicated; G82.20 Paraplegia, unspecified; K63.2 Fistula of intestine; L03.311 Cellulitis of abdominal wall; N18.3 Chronic kidney disease, stage 3 (moderate); D63.8 Anemia in other chronic diseases classified elsewhere; D72.819 Decreased white blood cell count, unspecified; E83.39 Other disorders of phosphorus metabolism; E83.42 Hypomagnesemia; E87.5 Hyperkalemia; B37.9 Candidiasis, unspecified; G89.4 Chronic pain syndrome; M19.90 Unspecified osteoarthritis, unspecified site; Y83.8 Other surgical procedures as the cause of abnormal reaction of the patient, or of later complication, without mention of misadventure at the time of the procedure; Z72.811 Adult antisocial behavior; Z83.3 Family history of diabetes mellitus; Z93.3 Colostomy status; Z91.19 Patient's noncompliance with other medical treatment and regimen; Z68.29 Body mass index [BMI] 29.0-29.9, adult; Z87.440 Personal history of urinary (tract) infections; Z89.612 Acquired absence of left leg above knee; Z85.830 Personal history of malignant neoplasm of bone; Z89.611 Acquired absence of right leg above knee; Z90.49 Acquired absence of other specified parts of digestive tract
CPT/HCPCS: 36415; 77001; 84145; 87106; 87400; 96361; 99285; J3475; 36573; 36589; 71045; 76700; 76937; 80048; 80053; 81001; 82040; 82306; 82550; 83605; 83735; 84100; 85025; 87040; 93005; 96374; 99156; 99157; G0378; J0610; J0878; J1450; J2185; J2248; J2250; J3010; J3480; C1750; C1751; J1200; J2270; J2310; J2800; J3420; J7030; J7040; J7120

== ENCOUNTER 2019-07-31 20:35 | Inpatient (IN) | payer MEDICAID ==
[~2019-07-31] VITALS: Ht 152.4 cm; Wt 85.4 kg
[~2019-07-31 20:35] MED LIST changes: +ERGO800010 PO; +Tpn Per Pharmacy MC; +[UNRECOGNIZED DRUG - OTHER] TP
[2019-07-31 22:03] LABS: BASOPHILS % (AUTO) 0 % (0-1); EOSINOPHILS # (AUTO) 0.03 x10^3/uL (0-0.4); EOSINOPHILS % (AUTO) 1 % (1-7); LYMPHOCYTES # (AUTO) 0.64 x10^3/uL (1-3.4); LYMPHOCYTES % (AUTO) 20 % (22-44); MD NO; MEAN CORPUSCULAR HEMOGLOBIN 31.6 pg (27.5-34.5); MEAN CORPUSCULAR HGB CONC 33.3 g/dL (33.2-36.2); MEAN CORPUSCULAR VOLUME 95.1 fL (81-97); MEAN PLATELET VOLUME 9.4 fL (7.4-10.4); MONOCYTES # (AUTO) 0.24 x10^3/uL (0.2-0.8); MONOCYTES % (AUTO) 8 % (2-9); NEUTROPHILS # (AUTO) 2.27 x10^3/uL (1.8-6.8); NEUTROPHILS % (AUTO) 71 % (42-75); PLATELET COUNT 111 x10^3/uL (130-400); RED BLOOD COUNT 5.17 x10^6/uL (4.38-5.82); RED CELL DISTRIBUTION WIDTH 14.1 % (9.4-14.8)
[2019-07-31 22:15] LABS: ALANINE AMINOTRANSFERASE 115 U/L (12-78); ALBUMIN 2.8 g/dL (3.4-5.0); ANION GAP 8 mmol/L (5-15); CALCIUM 8.2 mg/dL (8.5-10.1); CHLORIDE 114 mmol/L (98-107); CREATININE 2.08 mg/dL (0.7-1.3)
[2019-07-31 22:17] LABS: ALKALINE PHOSPHATASE 399 U/L (45-117); BILIRUBIN,TOTAL 0.7 mg/dL (0.2-1.0); TOTAL PROTEIN 7.8 g/dL (6.4-8.2)
[2019-07-31 22:27] LABS: RAPID INFLUENZA A Negative (Negative); RAPID INFLUENZA B POSITIVE (Negative)
[2019-07-31] MEDS ORDERED: SODIUM CHLORIDE 0.9% 1,000ML IVBOLUS ONE (22:30)
[2019-08-01 00:09] LABS: MICROSCOPIC INDICATED
[2019-08-01 00:20] VITALS: BP 100/64
[2019-08-01 00:25] LABS: CULTURE INDICATED? YES
[2019-08-01] MEDS: HEPARIN 5,000 UNITS/ML, 1ML SQ SCH ×4 (01:52→23:12)
[2019-08-01] MEDS ORDERED: NS + 20MEQ KCL 1,000 ML IV SCH (02:00)
[2019-08-01] MEDS: OSELTAMIVIR 75 MG CAPSULE PO SCH ×3 (02:50→21:00)
[2019-08-01 07:43] LABS: MEAN CORPUSCULAR HEMOGLOBIN 31.6 pg (27.5-34.5); MEAN CORPUSCULAR HGB CONC 33.6 g/dL (33.2-36.2); MEAN CORPUSCULAR VOLUME 94.1 fL (81-97); PLATELET COUNT 98 x10^3/uL (130-400); RED BLOOD COUNT 4.77 x10^6/uL (4.38-5.82); RED CELL DISTRIBUTION WIDTH 14.2 % (9.4-14.8)
[2019-08-01 07:48] LABS: ALANINE AMINOTRANSFERASE 110 U/L (12-78); ALBUMIN 2.4 g/dL (3.4-5.0); ANION GAP 9 mmol/L (5-15); CALCIUM 7.9 mg/dL (8.5-10.1); CHLORIDE 118 mmol/L (98-107); CREATININE 2.07 mg/dL (0.7-1.3)
[2019-08-01 07:51] LABS: ALKALINE PHOSPHATASE 335 U/L (45-117); BILIRUBIN,TOTAL 0.8 mg/dL (0.2-1.0); TOTAL PROTEIN 6.9 g/dL (6.4-8.2)
[2019-08-01 07:55] LABS: BASOPHILS % (AUTO) 0 % (0-1); EOSINOPHILS # (AUTO) 0.03 x10^3/uL (0-0.4); EOSINOPHILS % (AUTO) 1 % (1-7); LYMPHOCYTES # (AUTO) 0.63 x10^3/uL (1-3.4); LYMPHOCYTES % (AUTO) 23 % (22-44); MD SCAN; MONOCYTES # (AUTO) 0.15 x10^3/uL (0.2-0.8); MONOCYTES % (AUTO) 6 % (2-9); NEUTROPHILS # (AUTO) 1.87 x10^3/uL (1.8-6.8); NEUTROPHILS % (AUTO) 70 % (42-75)
[2019-08-01] MEDS: SODIUM CHLORIDE FLUSH 10ML SYR IVF SCH ×2 (09:24→21:00)
[2019-08-01] MEDS: LACTATED RINGERS 1,000 ML IV SCH ×3 (09:24→23:12)
[2019-08-01] MEDS ORDERED: GLUCAGON 1 MG IM PRN (09:30)
[2019-08-01] MEDS ORDERED: DEXTROSE 4 GM TAB.CHEW PO PRN (09:30)
[2019-08-01] MEDS ORDERED: DEXTROSE 50%, 50ML SYRINGE IVPush PRN (09:30)
[2019-08-01] MEDS ORDERED: VANCOMYCIN PER PHARMACY MC PRN (10:00)
[2019-08-01] MEDS ORDERED: OXYcodone IR 5MG TABLET PO PRN (10:00)
[2019-08-01] MEDS ORDERED: PHARMACOKINETIC CONSULTATION MC ONE (10:30)
[2019-08-01] MEDS ORDERED: PHARMACOKINETIC MONITORING MC PRN (10:30)
[2019-08-01 10:57] VITALS: BP 116/73
[2019-08-01] MEDS ORDERED: VANCOMYCIN 1,600 MG in SODIUM CHLORIDE 0.9% 250 ML IV SCH (11:00)
[2019-08-01] MEDS: ONDANSETRON 2MG/ML, 2ML IVPush PRN (12:19)
[2019-08-01 15:43] VITALS: BP 119/76
[2019-08-01] MEDS: LINEZOLID PMX 600MG/300ML 300 ML IV SCH (16:20)
[2019-08-01] MEDS ORDERED: LIDOCAINE 1%, 20ML ONE (16:40)
[2019-08-01] MEDS ORDERED: FENTANYL PF 100 MCG/2ML ONE (16:55)
[2019-08-01] MEDS ORDERED: FLUMAZENIL 0.1 MG/1 ML, 5ML ONE (16:55)
[2019-08-01] MEDS ORDERED: MIDAZOLAM 1 MG/ML, 5ML ONE (16:55)
[2019-08-01] MEDS ORDERED: NALOXONE 1 MG/ML, 2ML ONE (16:56)
[2019-08-01 21:59] VITALS: BP 114/69
[2019-08-02] MEDS: LINEZOLID PMX 600MG/300ML 300 ML IV SCH (03:44)
[2019-08-02] MEDS: LACTATED RINGERS 1,000 ML IV SCH ×3 (07:14→20:49)
[2019-08-02] MEDS: SODIUM CHLORIDE FLUSH 10ML SYR IVF SCH ×2 (07:15→20:49)
[2019-08-02 08:19] VITALS: BP 101/63
[2019-08-02] MEDS: OSELTAMIVIR 75 MG CAPSULE PO SCH ×2 (08:38→20:49)
[2019-08-02] MEDS: HEPARIN 5,000 UNITS/ML, 1ML SQ SCH ×3 (09:30→23:07)
[2019-08-02 09:31] LABS: ALBUMIN 2.3 g/dL (3.4-5.0); ANION GAP 8 mmol/L (5-15); CALCIUM 7.7 mg/dL (8.5-10.1); CHLORIDE 113 mmol/L (98-107)
[2019-08-02 09:36] LABS: ALANINE AMINOTRANSFERASE 81 U/L (12-78); ALKALINE PHOSPHATASE 296 U/L (45-117); BILIRUBIN,TOTAL 0.9 mg/dL (0.2-1.0); TOTAL PROTEIN 6.4 g/dL (6.4-8.2)
[2019-08-02 09:56] LABS: BASOPHILS % (AUTO) 0 % (0-1); EOSINOPHILS # (AUTO) 0.06 x10^3/uL (0-0.4); EOSINOPHILS % (AUTO) 3 % (1-7); LYMPHOCYTES # (AUTO) 0.62 x10^3/uL (1-3.4); LYMPHOCYTES % (AUTO) 30 % (22-44); MD SCAN; MEAN CORPUSCULAR HEMOGLOBIN 31.8 pg (27.5-34.5); MEAN CORPUSCULAR HGB CONC 34.4 g/dL (33.2-36.2); MEAN CORPUSCULAR VOLUME 92.5 fL (81-97); MEAN PLATELET VOLUME 9.1 fL (7.4-10.4); MONOCYTES # (AUTO) 0.17 x10^3/uL (0.2-0.8); MONOCYTES % (AUTO) 8 % (2-9); NEUTROPHILS # (AUTO) 1.22 x10^3/uL (1.8-6.8); NEUTROPHILS % (AUTO) 59 % (42-75); PLATELET COUNT 96 x10^3/uL (130-400); RED BLOOD COUNT 4.57 x10^6/uL (4.38-5.82); RED CELL DISTRIBUTION WIDTH 13.8 % (9.4-14.8)
[2019-08-02] MEDS: DAPTOMYCIN 500 MG in SODIUM CHLORIDE 0.9% 100 ML IVPB SCH (14:22)
[2019-08-02 14:27] VITALS: BP 102/66
[2019-08-02] MEDS ORDERED: POTASSIUM CHLORIDE 40 MEQ in SODIUM CHLORIDE 0.9% 500 ML IV ONE (17:00)
[2019-08-02] MEDS: POTASSIUM CHLORIDE 20 MEQ TAB.ER.PRT PO SCH (17:00)
[2019-08-02 21:30] VITALS: BP 100/66
[2019-08-03] MEDS: LACTATED RINGERS 1,000 ML IV SCH ×3 (04:13→18:00)
[2019-08-03] MEDS: POTASSIUM CHLORIDE 20 MEQ TAB.ER.PRT PO SCH ×2 (08:00→17:00)
[2019-08-03] MEDS: OSELTAMIVIR 75 MG CAPSULE PO SCH ×2 (08:07→22:22)
[2019-08-03] MEDS: SODIUM CHLORIDE FLUSH 10ML SYR IVF SCH ×2 (08:28→21:00)
[2019-08-03] MEDS: HEPARIN 5,000 UNITS/ML, 1ML SQ SCH ×2 (08:28→17:30)
[2019-08-03] MEDS: DAPTOMYCIN 500 MG in SODIUM CHLORIDE 0.9% 100 ML IVPB SCH (14:20)
[2019-08-03 19:20] VITALS: BP 105/70
[2019-08-04] MEDS: LACTATED RINGERS 1,000 ML IV SCH ×5 (00:40→23:27)
[2019-08-04] MEDS: HEPARIN 5,000 UNITS/ML, 1ML SQ SCH ×3 (01:30→17:21)
[2019-08-04 06:13] LABS: CHLORIDE 111 mmol/L (98-107)
[2019-08-04 06:14] LABS: ALBUMIN 2.2 g/dL (3.4-5.0); ANION GAP 8 mmol/L (5-15); CALCIUM 7.6 mg/dL (8.5-10.1)
[2019-08-04 06:17] LABS: ALANINE AMINOTRANSFERASE 83 U/L (12-78); ALKALINE PHOSPHATASE 243 U/L (45-117); BILIRUBIN,TOTAL 1.4 mg/dL (0.2-1.0); CREATININE 1.77 mg/dL (0.7-1.3); TOTAL PROTEIN 6.2 g/dL (6.4-8.2)
[2019-08-04 06:18] LABS: MEAN CORPUSCULAR HEMOGLOBIN 31.8 pg (27.5-34.5); MEAN CORPUSCULAR HGB CONC 34.1 g/dL (33.2-36.2); MEAN CORPUSCULAR VOLUME 93.2 fL (81-97); MEAN PLATELET VOLUME 9.8 fL (7.4-10.4); PLATELET COUNT 98 x10^3/uL (130-400); RED BLOOD COUNT 4.35 x10^6/uL (4.38-5.82)
[2019-08-04 06:42] LABS: BASOPHILS % (AUTO) 0 % (0-1); EOSINOPHILS # (AUTO) 0.08 x10^3/uL (0-0.4); EOSINOPHILS % (AUTO) 3 % (1-7); LYMPHOCYTES # (AUTO) 1.09 x10^3/uL (1-3.4); LYMPHOCYTES % (AUTO) 44 % (22-44); MD SCAN; MONOCYTES # (AUTO) 0.22 x10^3/uL (0.2-0.8); MONOCYTES % (AUTO) 9 % (2-9); NEUTROPHILS # (AUTO) 1.06 x10^3/uL (1.8-6.8); NEUTROPHILS % (AUTO) 43 % (42-75)
[2019-08-04] MEDS: POTASSIUM CHLORIDE 20 MEQ TAB.ER.PRT PO SCH (07:21)
[2019-08-04] MEDS: SODIUM CHLORIDE FLUSH 10ML SYR IVF SCH ×2 (07:21→23:27)
[2019-08-04] MEDS: OSELTAMIVIR 75 MG CAPSULE PO SCH ×2 (09:00→21:23)
[2019-08-04] MEDS: DAPTOMYCIN 500 MG in SODIUM CHLORIDE 0.9% 100 ML IVPB SCH (12:30)
[2019-08-04] MEDS ORDERED: MORPHINE SULFATE 4 MG/ML, 1ML ONE (14:39)
[2019-08-04] MEDS: MORPHINE SULFATE 4 MG/ML, 1ML IVPush PRN (14:43)
[2019-08-04] MEDS ORDERED: LIDOCAINE 1%, 10ML ONE (15:05)
[2019-08-04] MEDS ORDERED: LIDOCAINE 1%, 20ML ONE (15:06)
[2019-08-04] MEDS ORDERED: SODIUM CHLORIDE 0.9% IV ONE (16:00)
[2019-08-04] MEDS ORDERED: POTASSIUM CHLORIDE IV ONE (16:00)
[2019-08-04] MEDS: ONDANSETRON 2MG/ML, 2ML IVPush PRN (16:56)
[2019-08-04] MEDS ORDERED: POTASSIUM CHLORIDE 40 MEQ in SODIUM CHLORIDE 0.9% 100 ML IV ONE (21:00)
[2019-08-05] MEDS: HEPARIN 5,000 UNITS/ML, 1ML SQ SCH ×3 (01:30→17:30)
[2019-08-05] MEDS: LACTATED RINGERS 1,000 ML IV SCH ×2 (05:50→13:00)
[2019-08-05 06:35] LABS: ALANINE AMINOTRANSFERASE 93 U/L (12-78); ANION GAP 8 mmol/L (5-15); CALCIUM 7.6 mg/dL (8.5-10.1); CHLORIDE 112 mmol/L (98-107)
[2019-08-05 06:38] LABS: ALKALINE PHOSPHATASE 216 U/L (45-117); BILIRUBIN,TOTAL 2.1 mg/dL (0.2-1.0); CREATININE 1.41 mg/dL (0.7-1.3); TOTAL PROTEIN 5.7 g/dL (6.4-8.2)
[2019-08-05 06:55] LABS: MEAN CORPUSCULAR HEMOGLOBIN 31.8 pg (27.5-34.5); MEAN CORPUSCULAR HGB CONC 33.6 g/dL (33.2-36.2); MEAN CORPUSCULAR VOLUME 94.8 fL (81-97); MEAN PLATELET VOLUME 9.3 fL (7.4-10.4); PLATELET COUNT 93 x10^3/uL (130-400); RED BLOOD COUNT 3.87 x10^6/uL (4.38-5.82); RED CELL DISTRIBUTION WIDTH 14.2 % (9.4-14.8)
[2019-08-05 07:11] LABS: BASOPHILS # (AUTO) 0.01 x10^3/uL (0-0.1); BASOPHILS % (AUTO) 0 % (0-1); EOSINOPHILS % (AUTO) 5 % (1-7); LYMPHOCYTES # (AUTO) 0.85 x10^3/uL (1-3.4); LYMPHOCYTES % (AUTO) 43 % (22-44); MD SCAN; MONOCYTES # (AUTO) 0.18 x10^3/uL (0.2-0.8); MONOCYTES % (AUTO) 9 % (2-9); NEUTROPHILS # (AUTO) 0.82 x10^3/uL (1.8-6.8); NEUTROPHILS % (AUTO) 42 % (42-75)
[2019-08-05] MEDS: OSELTAMIVIR 75 MG CAPSULE PO SCH ×2 (09:00→21:43)
[2019-08-05] MEDS: SODIUM CHLORIDE FLUSH 10ML SYR IVF SCH ×2 (09:00→21:43)
[2019-08-05] MEDS: DAPTOMYCIN 500 MG in SODIUM CHLORIDE 0.9% 100 ML IVPB SCH (12:53)
[2019-08-05] MEDS ORDERED: TPN PER PHARMACY MC PRN (15:00)
[2019-08-05] MEDS ORDERED: POTASSIUM CHLORIDE 40 MEQ in SODIUM CHLORIDE 0.9% 500 ML IV ONE (15:00)
[2019-08-05] MEDS ORDERED: MAGNESIUM SULFATE PMX 2GM/50ML 50 ML IV ONE (15:00)
[2019-08-06] MEDS: HEPARIN 5,000 UNITS/ML, 1ML SQ SCH ×3 (01:30→17:56)
[2019-08-06] MEDS: LACTATED RINGERS 1,000 ML IV SCH ×3 (04:28→17:56)
[2019-08-06] MEDS: SODIUM CHLORIDE FLUSH 10ML SYR IVF SCH ×2 (10:30→21:00)
[2019-08-06] MEDS: OSELTAMIVIR 75 MG CAPSULE PO SCH ×2 (10:30→23:10)
[2019-08-06] MEDS: DAPTOMYCIN 500 MG in SODIUM CHLORIDE 0.9% 100 ML IVPB SCH ×2 (13:35→23:10)
[2019-08-07] MEDS: LACTATED RINGERS 1,000 ML IV SCH ×3 (01:00→14:20)
[2019-08-07] MEDS: HEPARIN 5,000 UNITS/ML, 1ML SQ SCH ×3 (01:30→16:56)
[2019-08-07 05:53] LABS: ALANINE AMINOTRANSFERASE 90 U/L (12-78); ALBUMIN 2.3 g/dL (3.4-5.0); ANION GAP 9 mmol/L (5-15); CALCIUM 8.4 mg/dL (8.5-10.1); CHLORIDE 109 mmol/L (98-107); CREATININE 1.35 mg/dL (0.7-1.3)
[2019-08-07 05:59] LABS: ALKALINE PHOSPHATASE 236 U/L (45-117); BILIRUBIN,TOTAL 1.6 mg/dL (0.2-1.0); PREALBUMIN 19.3 mg/dL (20.0-40.0); TOTAL PROTEIN 6.5 g/dL (6.4-8.2); TRIGLYCERIDES 188 mg/dL (50-200)
[2019-08-07] MEDS: SODIUM CHLORIDE FLUSH 10ML SYR IVF SCH ×2 (09:00→21:00)
[2019-08-07] MEDS: OSELTAMIVIR 75 MG CAPSULE PO SCH (11:59)
[2019-08-07] MEDS: DAPTOMYCIN 500 MG in SODIUM CHLORIDE 0.9% 100 ML IVPB SCH (23:17)
[2019-08-07 23:23] VITALS: BP 93/60
[2019-08-08] MEDS: LACTATED RINGERS 1,000 ML IV SCH ×3 (00:23→23:03)
[2019-08-08] MEDS: HEPARIN 5,000 UNITS/ML, 1ML SQ SCH ×3 (01:32→17:30)
[2019-08-08] MEDS: SODIUM CHLORIDE FLUSH 10ML SYR IVF SCH ×2 (09:00→20:00)
[2019-08-08] MEDS ORDERED: POTASSIUM CHLORIDE 40 MEQ in SODIUM CHLORIDE 0.9% 100 ML IV ONE (09:30)
[2019-08-08] MEDS ORDERED: TPN PER PHARMACY MC PRN (14:30)
[2019-08-08] MEDS: DAPTOMYCIN 500 MG in SODIUM CHLORIDE 0.9% 100 ML IVPB SCH (23:03)
[2019-08-09] MEDS: HEPARIN 5,000 UNITS/ML, 1ML SQ SCH ×3 (01:30→15:33)
[2019-08-09 04:16] LABS: ALANINE AMINOTRANSFERASE 87 U/L (12-78); ALBUMIN 2.1 g/dL (3.4-5.0); ANION GAP 5 mmol/L (5-15); CALCIUM 7.8 mg/dL (8.5-10.1); CHLORIDE 112 mmol/L (98-107); CREATININE 1.41 mg/dL (0.7-1.3)
[2019-08-09 04:21] LABS: ALKALINE PHOSPHATASE 194 U/L (45-117); PREALBUMIN 19.6 mg/dL (20.0-40.0); TOTAL PROTEIN 5.9 g/dL (6.4-8.2); TRIGLYCERIDES 165 mg/dL (50-200)
[2019-08-09] MEDS: LACTATED RINGERS 1,000 ML IV SCH (06:46)
[2019-08-09] MEDS ORDERED: POTASSIUM CHLORIDE PMX 100 ML IV ONE (07:00)
[2019-08-09] MEDS ORDERED: MAGNESIUM SULFATE PMX 2GM/50ML 50 ML IV ONE (07:00)
[2019-08-09] MEDS ORDERED: TBO-FILGRASTIM 300 MCG/0.5 ML SQ SCH (09:00)
[2019-08-09] MEDS: CHOLESTYRAMINE LIGHT 4GM PACKET PO SCH (09:00)
[2019-08-09] MEDS: SODIUM CHLORIDE FLUSH 10ML SYR IVF SCH ×2 (12:27→19:59)
[2019-08-09] MEDS: MORPHINE SULFATE 4 MG/ML, 1ML IVPush PRN (13:10)
[2019-08-09] MEDS ORDERED: FILTER, DISP 1.2 MICRON FOR TPN/PVN IV PRN (19:00)
[2019-08-09] MEDS ORDERED: DEXTROSE 10% 500 ML IV PRN (19:00)
[2019-08-09] MEDS ORDERED: DEXTROSE 70% IV SCH ×6 (19:00→21:00)
[2019-08-09] MEDS ORDERED: [UNRECOGNIZED DRUG - OTHER] IV SCH ×5 (19:00→21:00)
[2019-08-09] MEDS ORDERED: [UNRECOGNIZED DRUG - OTHER] IV SCH (19:00)
[2019-08-09] MEDS ORDERED: DEXTROSE 50%, 50ML SYRINGE IVPush PRN (19:00)
[2019-08-09] MEDS ORDERED: FAT EMUL IV SCH ×6 (19:00→21:00)
[2019-08-09] MEDS ORDERED: SMOF TPN IV SCH ×6 (19:00→21:00)
[2019-08-09] MEDS ORDERED: AMINO ACID 10% IV SCH ×6 (19:00→21:00)
[2019-08-09] MEDS: FILTER, DISP 1.2 MICRON FOR TPN/PVN IV PRN (19:59)
[2019-08-10] MEDS: HEPARIN 5,000 UNITS/ML, 1ML SQ SCH ×3 (01:30→16:20)
[2019-08-10 05:33] LABS: BASOPHILS # (AUTO) 0.01 x10^3/uL (0-0.1); BASOPHILS % (AUTO) 0 % (0-1); EOSINOPHILS # (AUTO) 0.15 x10^3/uL (0-0.4); EOSINOPHILS % (AUTO) 4 % (1-7); LYMPHOCYTES # (AUTO) 0.78 x10^3/uL (1-3.4); LYMPHOCYTES % (AUTO) 20 % (22-44); MD NO; MEAN CORPUSCULAR HEMOGLOBIN 31.4 pg (27.5-34.5); MEAN CORPUSCULAR HGB CONC 32.7 g/dL (33.2-36.2); MEAN CORPUSCULAR VOLUME 96.1 fL (81-97); MEAN PLATELET VOLUME 9.7 fL (7.4-10.4); MONOCYTES # (AUTO) 0.41 x10^3/uL (0.2-0.8); MONOCYTES % (AUTO) 10 % (2-9); NEUTROPHILS # (AUTO) 2.59 x10^3/uL (1.8-6.8); NEUTROPHILS % (AUTO) 66 % (42-75); PLATELET COUNT 137 x10^3/uL (130-400); RED BLOOD COUNT 3.88 x10^6/uL (4.38-5.82); RED CELL DISTRIBUTION WIDTH 13.5 % (9.4-14.8)
[2019-08-10 05:41] LABS: CHLORIDE 108 mmol/L (98-107)
[2019-08-10 05:47] LABS: ALANINE AMINOTRANSFERASE 81 U/L (12-78); ALKALINE PHOSPHATASE 174 U/L (45-117); ANION GAP 5 mmol/L (5-15); BILIRUBIN,TOTAL 0.8 mg/dL (0.2-1.0); CREATININE 1.34 mg/dL (0.7-1.3)
[2019-08-10] MEDS: INSULIN REGULAR MEDIUM DOSE QDAY SQ-INSULIN SCH (09:00)
[2019-08-10] MEDS: CHOLESTYRAMINE LIGHT 4GM PACKET PO SCH (09:00)
[2019-08-10] MEDS: SODIUM CHLORIDE FLUSH 10ML SYR IVF SCH (10:59)
[2019-08-10] MEDS: LACTATED RINGERS 1,000 ML IV SCH (16:24)
[2019-08-10] MEDS ORDERED: DEXTROSE 70% IV SCH (20:00)
[2019-08-10] MEDS ORDERED: AMINO ACID 10% IV SCH (20:00)
[2019-08-10] MEDS ORDERED: SMOF TPN IV SCH (20:00)
[2019-08-10] MEDS ORDERED: [UNRECOGNIZED DRUG - OTHER] IV SCH (20:00)
[2019-08-10] MEDS ORDERED: FAT EMUL IV SCH (20:00)
[2019-08-10] MEDS: FILTER, DISP 1.2 MICRON FOR TPN/PVN IV PRN (23:45)
[2019-08-11] MEDS: SODIUM CHLORIDE FLUSH 10ML SYR IVF SCH ×3 (00:30→22:36)
[2019-08-11] MEDS: HEPARIN 5,000 UNITS/ML, 1ML SQ SCH ×3 (01:30→17:30)
[2019-08-11 05:22] LABS: BASOPHILS % (AUTO) 0 % (0-1); EOSINOPHILS # (AUTO) 0.07 x10^3/uL (0-0.4); EOSINOPHILS % (AUTO) 2 % (1-7); LYMPHOCYTES # (AUTO) 0.38 x10^3/uL (1-3.4); LYMPHOCYTES % (AUTO) 11 % (22-44); MD NO; MEAN CORPUSCULAR HEMOGLOBIN 31.5 pg (27.5-34.5); MEAN CORPUSCULAR HGB CONC 32.9 g/dL (33.2-36.2); MEAN CORPUSCULAR VOLUME 95.6 fL (81-97); MEAN PLATELET VOLUME 9.9 fL (7.4-10.4); MONOCYTES # (AUTO) 0.27 x10^3/uL (0.2-0.8); MONOCYTES % (AUTO) 7 % (2-9); NEUTROPHILS # (AUTO) 2.88 x10^3/uL (1.8-6.8); NEUTROPHILS % (AUTO) 80 % (42-75); PLATELET COUNT 130 x10^3/uL (130-400); RED CELL DISTRIBUTION WIDTH 13.2 % (9.4-14.8)
[2019-08-11 05:31] LABS: ANION GAP 6 mmol/L (5-15); CALCIUM 8.1 mg/dL (8.5-10.1); CHLORIDE 106 mmol/L (98-107); CREATININE 1.66 mg/dL (0.7-1.3)
[2019-08-11] MEDS: INSULIN REGULAR MEDIUM DOSE QDAY SQ-INSULIN SCH (07:34)
[2019-08-11] MEDS: CHOLESTYRAMINE LIGHT 4GM PACKET PO SCH (07:34)
[2019-08-11] MEDS ORDERED: SMOF TPN IV SCH (20:00)
[2019-08-11] MEDS ORDERED: AMINO ACID 10% IV SCH (20:00)
[2019-08-11] MEDS ORDERED: FAT EMUL IV SCH (20:00)
[2019-08-11] MEDS ORDERED: DEXTROSE 70% IV SCH (20:00)
[2019-08-11] MEDS ORDERED: [UNRECOGNIZED DRUG - OTHER] IV SCH (20:00)
[2019-08-11] MEDS: FILTER, DISP 1.2 MICRON FOR TPN/PVN IV PRN (22:40)
[2019-08-12] MEDS: HEPARIN 5,000 UNITS/ML, 1ML SQ SCH ×3 (01:30→17:30)
[2019-08-12 04:40] LABS: BASOPHILS % (AUTO) 0 % (0-1); EOSINOPHILS # (AUTO) 0.05 x10^3/uL (0-0.4); EOSINOPHILS % (AUTO) 2 % (1-7); LYMPHOCYTES # (AUTO) 0.29 x10^3/uL (1-3.4); LYMPHOCYTES % (AUTO) 9 % (22-44); MD NO; MEAN CORPUSCULAR HEMOGLOBIN 31.6 pg (27.5-34.5); MEAN CORPUSCULAR VOLUME 95.7 fL (81-97); MEAN PLATELET VOLUME 9.6 fL (7.4-10.4); MONOCYTES # (AUTO) 0.36 x10^3/uL (0.2-0.8); MONOCYTES % (AUTO) 11 % (2-9); NEUTROPHILS # (AUTO) 2.55 x10^3/uL (1.8-6.8); NEUTROPHILS % (AUTO) 78 % (42-75); PLATELET COUNT 106 x10^3/uL (130-400); RED BLOOD COUNT 3.87 x10^6/uL (4.38-5.82); RED CELL DISTRIBUTION WIDTH 13.4 % (9.4-14.8)
[2019-08-12 04:50] LABS: ANION GAP 6 mmol/L (5-15); CHLORIDE 109 mmol/L (98-107); CREATININE 1.64 mg/dL (0.7-1.3)
[2019-08-12 04:53] LABS: PREALBUMIN 19.5 mg/dL (20.0-40.0)
[2019-08-12] MEDS: CHOLESTYRAMINE LIGHT 4GM PACKET PO SCH (09:00)
[2019-08-12] MEDS: SODIUM CHLORIDE FLUSH 10ML SYR IVF SCH ×2 (09:00→21:22)
[2019-08-12] MEDS: INSULIN REGULAR MEDIUM DOSE QDAY SQ-INSULIN SCH (09:00)
[2019-08-12] MEDS ORDERED: DEXTROSE 70% IV SCH (20:00)
[2019-08-12] MEDS ORDERED: AMINO ACID 10% IV SCH (20:00)
[2019-08-12] MEDS ORDERED: [UNRECOGNIZED DRUG - OTHER] IV SCH (20:00)
[2019-08-12] MEDS ORDERED: SMOF TPN IV SCH (20:00)
[2019-08-12] MEDS ORDERED: FAT EMUL IV SCH (20:00)
[2019-08-12] MEDS: MORPHINE SULFATE 4 MG/ML, 1ML IVPush PRN (21:06)
[2019-08-12] MEDS: ONDANSETRON 2MG/ML, 2ML IVPush PRN (21:14)
[2019-08-12] MEDS: FILTER, DISP 1.2 MICRON FOR TPN/PVN IV PRN (21:21)
[2019-08-13] MEDS: MORPHINE SULFATE 4 MG/ML, 1ML IVPush PRN ×5 (01:13→21:48)
[2019-08-13] MEDS: HEPARIN 5,000 UNITS/ML, 1ML SQ SCH ×3 (01:30→16:21)
[2019-08-13 02:07] LABS: ANION GAP 8 mmol/L (5-15); CALCIUM 7.7 mg/dL (8.5-10.1); CHLORIDE 104 mmol/L (98-107); CREATININE 1.94 mg/dL (0.7-1.3)
[2019-08-13 02:50] LABS: BASOPHILS % (AUTO) 0 % (0-1); EOSINOPHILS % (AUTO) 0 % (1-7); LYMPHOCYTES # (AUTO) 0.18 x10^3/uL (1-3.4); LYMPHOCYTES % (AUTO) 5 % (22-44); MD SCAN; MEAN PLATELET VOLUME 10.3 fL (7.4-10.4); MONOCYTES # (AUTO) 0.33 x10^3/uL (0.2-0.8); MONOCYTES % (AUTO) 8 % (2-9); NEUTROPHILS # (AUTO) 3.53 x10^3/uL (1.8-6.8); NEUTROPHILS % (AUTO) 87 % (42-75); PLATELET COUNT 95 x10^3/uL (130-400)
[2019-08-13 02:51] LABS: MEAN CORPUSCULAR HEMOGLOBIN 30.9 pg (27.5-34.5); MEAN CORPUSCULAR HGB CONC 32.6 g/dL (33.2-36.2); MEAN CORPUSCULAR VOLUME 94.7 fL (81-97); RED BLOOD COUNT 3.48 x10^6/uL (4.38-5.82)
[2019-08-13] MEDS: SODIUM CHLORIDE FLUSH 10ML SYR IVF SCH ×2 (09:00→20:08)
[2019-08-13] MEDS: CHOLESTYRAMINE LIGHT 4GM PACKET PO SCH (09:00)
[2019-08-13] MEDS: INSULIN REGULAR MEDIUM DOSE QDAY SQ-INSULIN SCH (09:00)
[2019-08-13] MEDS ORDERED: DEXTROSE 70% IV SCH (20:00)
[2019-08-13] MEDS ORDERED: FAT EMUL IV SCH (20:00)
[2019-08-13] MEDS ORDERED: [UNRECOGNIZED DRUG - OTHER] IV SCH (20:00)
[2019-08-13] MEDS ORDERED: SMOF TPN IV SCH (20:00)
[2019-08-13] MEDS ORDERED: AMINO ACID 10% IV SCH (20:00)
[2019-08-14] MEDS: HEPARIN 5,000 UNITS/ML, 1ML SQ SCH ×3 (01:30→16:52)
[2019-08-14] MEDS: MORPHINE SULFATE 4 MG/ML, 1ML IVPush PRN ×5 (04:50→22:39)
[2019-08-14] MEDS: SODIUM CHLORIDE FLUSH 10ML SYR IVF SCH ×2 (09:00→20:12)
[2019-08-14] MEDS: CHOLESTYRAMINE LIGHT 4GM PACKET PO SCH (09:00)
[2019-08-14] MEDS: INSULIN REGULAR MEDIUM DOSE QDAY SQ-INSULIN SCH (09:00)
[2019-08-14] MEDS: ONDANSETRON 2MG/ML, 2ML IVPush PRN ×2 (09:15→22:38)
[2019-08-14] MEDS ORDERED: [UNRECOGNIZED DRUG - OTHER] IV SCH (20:00)
[2019-08-14] MEDS ORDERED: SMOF TPN IV SCH (20:00)
[2019-08-14] MEDS ORDERED: AMINO ACID 10% IV SCH (20:00)
[2019-08-14] MEDS ORDERED: FAT EMUL IV SCH (20:00)
[2019-08-14] MEDS ORDERED: DEXTROSE 70% IV SCH (20:00)
[2019-08-14] MEDS: AMINO ACID 10% IV SCH (20:11)
[2019-08-14] MEDS: DEXTROSE 70% IV SCH (20:11)
[2019-08-14] MEDS: [UNRECOGNIZED DRUG - OTHER] IV SCH (20:11)
[2019-08-14] MEDS: SMOF TPN IV SCH (20:11)
[2019-08-14] MEDS: FAT EMUL IV SCH (20:11)
[2019-08-14] MEDS: FILTER, DISP 1.2 MICRON FOR TPN/PVN IV PRN (20:20)
[2019-08-15] MEDS: HEPARIN 5,000 UNITS/ML, 1ML SQ SCH ×3 (01:30→16:44)
[2019-08-15] MEDS: MORPHINE SULFATE 4 MG/ML, 1ML IVPush PRN ×4 (08:15→21:51)
[2019-08-15] MEDS: SODIUM CHLORIDE FLUSH 10ML SYR IVF SCH ×2 (08:52→19:59)
[2019-08-15] MEDS: CHOLESTYRAMINE LIGHT 4GM PACKET PO SCH (08:53)
[2019-08-15] MEDS: INSULIN REGULAR MEDIUM DOSE QDAY SQ-INSULIN SCH (08:53)
[2019-08-15] MEDS: SMOF TPN IV SCH (19:58)
[2019-08-15] MEDS: AMINO ACID 10% IV SCH (19:58)
[2019-08-15] MEDS: [UNRECOGNIZED DRUG - OTHER] IV SCH (19:58)
[2019-08-15] MEDS: FAT EMUL IV SCH (19:58)
[2019-08-15] MEDS: DEXTROSE 70% IV SCH (19:58)
[2019-08-15] MEDS ORDERED: DEXTROSE 10% 1,000 ML IV SCH ×2 (20:00)
[2019-08-15] MEDS: ONDANSETRON 2MG/ML, 2ML IVPush PRN (20:10)
[2019-08-16] MEDS: HEPARIN 5,000 UNITS/ML, 1ML SQ SCH ×3 (01:30→17:30)
[2019-08-16] MEDS: INSULIN REGULAR MEDIUM DOSE QDAY SQ-INSULIN SCH (09:00)
[2019-08-16] MEDS: CHOLESTYRAMINE LIGHT 4GM PACKET PO SCH (09:00)
[2019-08-16] MEDS: SODIUM CHLORIDE FLUSH 10ML SYR IVF SCH ×2 (09:00→20:31)
[2019-08-16] MEDS: MORPHINE SULFATE 4 MG/ML, 1ML IVPush PRN ×3 (11:56→23:16)
[2019-08-16] MEDS: FAT EMUL IV SCH (20:00)
[2019-08-16] MEDS: AMINO ACID 10% IV SCH (20:00)
[2019-08-16] MEDS: DEXTROSE 70% IV SCH (20:00)
[2019-08-16] MEDS: SMOF TPN IV SCH (20:00)
[2019-08-16] MEDS: [UNRECOGNIZED DRUG - OTHER] IV SCH (20:00)
[2019-08-16] MEDS ORDERED: DEXTROSE 10% 1,000 ML IV SCH (20:30)
[2019-08-17] MEDS: HEPARIN 5,000 UNITS/ML, 1ML SQ SCH ×3 (01:30→17:30)
[2019-08-17] MEDS: INSULIN REGULAR MEDIUM DOSE QDAY SQ-INSULIN SCH (09:00)
[2019-08-17] MEDS: CHOLESTYRAMINE LIGHT 4GM PACKET PO SCH (09:00)
[2019-08-17] MEDS: SODIUM CHLORIDE FLUSH 10ML SYR IVF SCH ×2 (09:09→20:22)
[2019-08-17] MEDS: MORPHINE SULFATE 4 MG/ML, 1ML IVPush PRN ×3 (09:10→23:25)
[2019-08-17] MEDS: DEXTROSE 70% IV SCH (20:21)
[2019-08-17] MEDS: SMOF TPN IV SCH (20:21)
[2019-08-17] MEDS: FAT EMUL IV SCH (20:21)
[2019-08-17] MEDS: [UNRECOGNIZED DRUG - OTHER] IV SCH (20:21)
[2019-08-17] MEDS: AMINO ACID 10% IV SCH (20:21)
[2019-08-18] MEDS: HEPARIN 5,000 UNITS/ML, 1ML SQ SCH ×4 (01:30→23:31)
[2019-08-18 06:10] LABS: ANION GAP 6 mmol/L (5-15); CALCIUM 8.1 mg/dL (8.5-10.1); CHLORIDE 107 mmol/L (98-107); CREATININE 1.42 mg/dL (0.7-1.3)
[2019-08-18] MEDS: CHOLESTYRAMINE LIGHT 4GM PACKET PO SCH (08:49)
[2019-08-18] MEDS: INSULIN REGULAR MEDIUM DOSE QDAY SQ-INSULIN SCH (08:49)
[2019-08-18] MEDS: SODIUM CHLORIDE FLUSH 10ML SYR IVF SCH ×2 (08:49→19:49)
[2019-08-18] MEDS: MORPHINE SULFATE 4 MG/ML, 1ML IVPush PRN ×2 (14:54→19:49)
[2019-08-18] MEDS: FILTER, DISP 1.2 MICRON FOR TPN/PVN IV PRN (19:58)
[2019-08-18] MEDS: FAT EMUL IV SCH (19:58)
[2019-08-18] MEDS: SMOF TPN IV SCH (19:58)
[2019-08-18] MEDS: AMINO ACID 10% IV SCH (19:58)
[2019-08-18] MEDS: DEXTROSE 70% IV SCH (19:58)
[2019-08-18] MEDS: [UNRECOGNIZED DRUG - OTHER] IV SCH (19:58)
[2019-08-19] MEDS: MORPHINE SULFATE 4 MG/ML, 1ML IVPush PRN ×6 (00:07→23:45)
[2019-08-19] MEDS: HEPARIN 5,000 UNITS/ML, 1ML SQ SCH ×2 (08:44→16:43)
[2019-08-19] MEDS: SODIUM CHLORIDE FLUSH 10ML SYR IVF SCH ×2 (08:44→21:00)
[2019-08-19] MEDS: INSULIN REGULAR MEDIUM DOSE QDAY SQ-INSULIN SCH (08:44)
[2019-08-19] MEDS: CHOLESTYRAMINE LIGHT 4GM PACKET PO SCH (08:44)
[2019-08-19] MEDS: LACTATED RINGERS 1,000 ML IV SCH (11:27)
[2019-08-19] MEDS: FAT EMUL IV SCH (20:00)
[2019-08-19] MEDS: DEXTROSE 70% IV SCH (20:00)
[2019-08-19] MEDS: SMOF TPN IV SCH (20:00)
[2019-08-19] MEDS: AMINO ACID 10% IV SCH (20:00)
[2019-08-19] MEDS: [UNRECOGNIZED DRUG - OTHER] IV SCH (20:00)
[2019-08-20] MEDS: HEPARIN 5,000 UNITS/ML, 1ML SQ SCH ×3 (01:30→16:19)
[2019-08-20] MEDS: LACTATED RINGERS 1,000 ML IV SCH ×2 (04:14→22:14)
[2019-08-20] MEDS: MORPHINE SULFATE 4 MG/ML, 1ML IVPush PRN ×3 (04:39→22:10)
[2019-08-20] MEDS: INSULIN REGULAR MEDIUM DOSE QDAY SQ-INSULIN SCH (07:57)
[2019-08-20] MEDS: SODIUM CHLORIDE FLUSH 10ML SYR IVF SCH ×2 (07:57→21:00)
[2019-08-20] MEDS: CHOLESTYRAMINE LIGHT 4GM PACKET PO SCH (07:57)
[2019-08-20] MEDS: FAT EMUL IV SCH (20:00)
[2019-08-20] MEDS: AMINO ACID 10% IV SCH (20:00)
[2019-08-20] MEDS: SMOF TPN IV SCH (20:00)
[2019-08-20] MEDS: [UNRECOGNIZED DRUG - OTHER] IV SCH (20:00)
[2019-08-20] MEDS: DEXTROSE 70% IV SCH (20:00)
[2019-08-21] MEDS: HEPARIN 5,000 UNITS/ML, 1ML SQ SCH ×3 (01:30→16:33)
[2019-08-21] MEDS: MORPHINE SULFATE 4 MG/ML, 1ML IVPush PRN ×4 (04:10→21:25)
[2019-08-21] MEDS: LACTATED RINGERS 1,000 ML IV SCH (04:11)
[2019-08-21] MEDS: CHOLESTYRAMINE LIGHT 4GM PACKET PO SCH (09:00)
[2019-08-21] MEDS: INSULIN REGULAR MEDIUM DOSE QDAY SQ-INSULIN SCH (09:00)
[2019-08-21] MEDS: SODIUM CHLORIDE FLUSH 10ML SYR IVF SCH ×2 (13:47→20:00)
[2019-08-21 14:29] LABS: ANION GAP 3 mmol/L (5-15); CALCIUM 8.9 mg/dL (8.5-10.1); CHLORIDE 111 mmol/L (98-107)
[2019-08-21 14:34] LABS: PREALBUMIN 28.1 mg/dL (20.0-40.0)
[2019-08-21] MEDS ORDERED: [UNRECOGNIZED DRUG - OTHER] IV SCH (20:00)
[2019-08-21] MEDS ORDERED: FAT EMUL IV SCH (20:00)
[2019-08-21] MEDS ORDERED: AMINO ACID 10% IV SCH (20:00)
[2019-08-21] MEDS ORDERED: OXYcodone/APAP 5/325MG TABLET PO PRN (20:00)
[2019-08-21] MEDS ORDERED: FILTER, DISP 1.2 MICRON FOR TPN/PVN IV PRN (20:00)
[2019-08-21] MEDS ORDERED: DEXTROSE 70% IV SCH (20:00)
[2019-08-21] MEDS ORDERED: SMOF TPN IV SCH (20:00)
[2019-08-22] MEDS: HEPARIN 5,000 UNITS/ML, 1ML SQ SCH ×3 (01:17→16:21)
[2019-08-22] MEDS: INSULIN REGULAR MEDIUM DOSE QDAY SQ-INSULIN SCH (07:48)
[2019-08-22] MEDS: CHOLESTYRAMINE LIGHT 4GM PACKET PO SCH (07:48)
[2019-08-22] MEDS: LACTATED RINGERS 1,000 ML IV SCH ×2 (08:26→15:10)
[2019-08-22] MEDS: MORPHINE SULFATE 4 MG/ML, 1ML IVPush PRN ×4 (08:26→22:39)
[2019-08-22] MEDS: SODIUM CHLORIDE FLUSH 10ML SYR IVF SCH ×2 (08:26→21:00)
[2019-08-22] MEDS ORDERED: FAT EMUL IV SCH (20:00)
[2019-08-22] MEDS ORDERED: DEXTROSE 70% IV SCH (20:00)
[2019-08-22] MEDS ORDERED: FILTER, DISP 1.2 MICRON FOR TPN/PVN IV PRN (20:00)
[2019-08-22] MEDS ORDERED: AMINO ACID 10% IV SCH (20:00)
[2019-08-22] MEDS ORDERED: [UNRECOGNIZED DRUG - OTHER] IV SCH (20:00)
[2019-08-22] MEDS ORDERED: SMOF TPN IV SCH (20:00)
[2019-08-23] MEDS: HEPARIN 5,000 UNITS/ML, 1ML SQ SCH ×3 (01:30→15:36)
[2019-08-23] MEDS: ONDANSETRON 2MG/ML, 2ML IVPush PRN (01:53)
[2019-08-23] MEDS: MORPHINE SULFATE 4 MG/ML, 1ML IVPush PRN ×4 (02:57→20:12)
[2019-08-23] MEDS: INSULIN REGULAR MEDIUM DOSE QDAY SQ-INSULIN SCH (07:16)
[2019-08-23] MEDS: CHOLESTYRAMINE LIGHT 4GM PACKET PO SCH (07:16)
[2019-08-23] MEDS: SODIUM CHLORIDE FLUSH 10ML SYR IVF SCH ×2 (09:00→21:00)
[2019-08-23] MEDS: LACTATED RINGERS 1,000 ML IV SCH (09:42)
[2019-08-23 13:56] LABS: ANION GAP 6 mmol/L (5-15); CALCIUM 8.6 mg/dL (8.5-10.1); CHLORIDE 104 mmol/L (98-107); CREATININE 1.61 mg/dL (0.7-1.3)
[2019-08-23] MEDS ORDERED: SMOF TPN IV SCH (20:00)
[2019-08-23] MEDS ORDERED: FILTER, DISP 1.2 MICRON FOR TPN/PVN IV PRN (20:00)
[2019-08-23] MEDS ORDERED: DEXTROSE 70% IV SCH (20:00)
[2019-08-23] MEDS ORDERED: FAT EMUL IV SCH (20:00)
[2019-08-23] MEDS ORDERED: AMINO ACID 10% IV SCH (20:00)
[2019-08-23] MEDS ORDERED: [UNRECOGNIZED DRUG - OTHER] IV SCH (20:00)
[2019-08-24] MEDS: ONDANSETRON 2MG/ML, 2ML IVPush PRN (00:34)
[2019-08-24] MEDS: MORPHINE SULFATE 4 MG/ML, 1ML IVPush PRN ×4 (00:44→21:15)
[2019-08-24] MEDS: HEPARIN 5,000 UNITS/ML, 1ML SQ SCH ×3 (01:25→07:40)
[2019-08-24] MEDS: INSULIN REGULAR MEDIUM DOSE QDAY SQ-INSULIN SCH (07:36)
[2019-08-24] MEDS: CHOLESTYRAMINE LIGHT 4GM PACKET PO SCH (07:39)
[2019-08-24] MEDS: SODIUM CHLORIDE FLUSH 10ML SYR IVF SCH ×2 (07:39→19:51)
[2019-08-24] MEDS ORDERED: [UNRECOGNIZED DRUG - OTHER] IV SCH (20:00)
[2019-08-24] MEDS ORDERED: FILTER, DISP 1.2 MICRON FOR TPN/PVN IV PRN (20:00)
[2019-08-24] MEDS ORDERED: DEXTROSE 70% IV SCH (20:00)
[2019-08-24] MEDS ORDERED: FAT EMUL IV SCH (20:00)
[2019-08-24] MEDS ORDERED: SMOF TPN IV SCH (20:00)
[2019-08-24] MEDS ORDERED: AMINO ACID 10% IV SCH (20:00)
[2019-08-25] MEDS: HEPARIN 5,000 UNITS/ML, 1ML SQ SCH ×3 (00:57→16:37)
[2019-08-25] MEDS: MORPHINE SULFATE 4 MG/ML, 1ML IVPush PRN ×5 (01:42→23:07)
[2019-08-25] MEDS: SODIUM CHLORIDE FLUSH 10ML SYR IVF SCH ×2 (09:00→20:05)
[2019-08-25] MEDS: INSULIN REGULAR MEDIUM DOSE QDAY SQ-INSULIN SCH (09:00)
[2019-08-25] MEDS: CHOLESTYRAMINE LIGHT 4GM PACKET PO SCH (09:00)
[2019-08-25 12:58] LABS: ALANINE AMINOTRANSFERASE 25 U/L (12-78); ALBUMIN 2.1 g/dL (3.4-5.0); ANION GAP 7 mmol/L (5-15); CALCIUM 8.5 mg/dL (8.5-10.1); CHLORIDE 106 mmol/L (98-107)
[2019-08-25 13:03] LABS: ALKALINE PHOSPHATASE 165 U/L (45-117); BILIRUBIN,TOTAL 0.7 mg/dL (0.2-1.0); CREATININE 1.37 mg/dL (0.7-1.3); PREALBUMIN 20.1 mg/dL (20.0-40.0); TOTAL PROTEIN 6.6 g/dL (6.4-8.2); TRIGLYCERIDES 155 mg/dL (50-200)
[2019-08-25] MEDS: ONDANSETRON 2MG/ML, 2ML IVPush PRN (19:01)
[2019-08-25] MEDS: FILTER, DISP 1.2 MICRON FOR TPN/PVN IV PRN (19:53)
[2019-08-25] MEDS ORDERED: DEXTROSE 70% IV SCH (20:00)
[2019-08-25] MEDS ORDERED: SMOF TPN IV SCH (20:00)
[2019-08-25] MEDS ORDERED: [UNRECOGNIZED DRUG - OTHER] IV SCH (20:00)
[2019-08-25] MEDS ORDERED: AMINO ACID 10% IV SCH (20:00)
[2019-08-25] MEDS ORDERED: FAT EMUL IV SCH (20:00)
[2019-08-26] MEDS: HEPARIN 5,000 UNITS/ML, 1ML SQ SCH ×3 (01:20→16:53)
[2019-08-26] MEDS: MORPHINE SULFATE 4 MG/ML, 1ML IVPush PRN ×4 (03:57→19:47)
[2019-08-26] MEDS: SODIUM CHLORIDE FLUSH 10ML SYR IVF SCH ×2 (08:49→20:03)
[2019-08-26] MEDS: CHOLESTYRAMINE LIGHT 4GM PACKET PO SCH (08:49)
[2019-08-26] MEDS: INSULIN REGULAR MEDIUM DOSE QDAY SQ-INSULIN SCH (08:50)
[2019-08-26] MEDS: ONDANSETRON 2MG/ML, 2ML IVPush PRN (10:36)
[2019-08-26] MEDS: FILTER, DISP 1.2 MICRON FOR TPN/PVN IV PRN (19:47)
[2019-08-26] MEDS ORDERED: SMOF TPN IV SCH (20:00)
[2019-08-26] MEDS ORDERED: DEXTROSE 70% IV SCH (20:00)
[2019-08-26] MEDS ORDERED: AMINO ACID 10% IV SCH (20:00)
[2019-08-26] MEDS ORDERED: FAT EMUL IV SCH (20:00)
[2019-08-26] MEDS ORDERED: [UNRECOGNIZED DRUG - OTHER] IV SCH (20:00)
[2019-08-27] MEDS: MORPHINE SULFATE 4 MG/ML, 1ML IVPush PRN ×5 (00:44→19:44)
[2019-08-27] MEDS: HEPARIN 5,000 UNITS/ML, 1ML SQ SCH ×3 (01:14→16:53)
[2019-08-27] MEDS: SODIUM CHLORIDE FLUSH 10ML SYR IVF SCH ×2 (09:00→19:53)
[2019-08-27] MEDS: INSULIN REGULAR MEDIUM DOSE QDAY SQ-INSULIN SCH (09:00)
[2019-08-27] MEDS: CHOLESTYRAMINE LIGHT 4GM PACKET PO SCH (09:00)
[2019-08-27] MEDS: ONDANSETRON 2MG/ML, 2ML IVPush PRN (11:44)
[2019-08-27 13:14] LABS: HCT (SEDRATE) 28.6 % (39.2-51.8)
[2019-08-27 13:23] LABS: ANION GAP 9 mmol/L (5-15); CALCIUM 8.4 mg/dL (8.5-10.1); CHLORIDE 104 mmol/L (98-107)
[2019-08-27 16:59] LABS: ALANINE AMINOTRANSFERASE 27 U/L (12-78); ALBUMIN 2.1 g/dL (3.4-5.0)
[2019-08-27 17:07] LABS: ALKALINE PHOSPHATASE 198 U/L (45-117); BILIRUBIN,TOTAL 0.9 mg/dL (0.2-1.0); TOTAL PROTEIN 6.6 g/dL (6.4-8.2)
[2019-08-27 17:11] LABS: MEAN CORPUSCULAR HEMOGLOBIN 31.1 pg (27.5-34.5); MEAN CORPUSCULAR HGB CONC 32.6 g/dL (33.2-36.2); MEAN CORPUSCULAR VOLUME 95.6 fL (81-97); PLATELET COUNT 103 x10^3/uL (130-400); RED BLOOD COUNT 3.07 x10^6/uL (4.38-5.82); RED CELL DISTRIBUTION WIDTH 13.1 % (9.4-14.8)
[2019-08-27 18:10] LABS: BASOPHILS # (AUTO) 0.01 x10^3/uL (0-0.1); BASOPHILS % (AUTO) 0 % (0-1); EOSINOPHILS # (AUTO) 0.05 x10^3/uL (0-0.4); EOSINOPHILS % (AUTO) 1 % (1-7); LYMPHOCYTES # (AUTO) 0.38 x10^3/uL (1-3.4); LYMPHOCYTES % (AUTO) 8 % (22-44); MD MORPH REVIEW ONLY; MONOCYTES # (AUTO) 0.38 x10^3/uL (0.2-0.8); MONOCYTES % (AUTO) 8 % (2-9); NEUTROPHILS # (AUTO) 4.12 x10^3/uL (1.8-6.8); NEUTROPHILS % (AUTO) 84 % (42-75)
[2019-08-27 18:14] LABS: <PLATELET ESTIMATE> DECREASED; <PLT MORPHOLOGY> NORMAL PLT MORPH; ANISOCYTOSIS 1+; OVALOCYTES 1+; POLYCHROMASIA 1+
[2019-08-27] MEDS: FILTER, DISP 1.2 MICRON FOR TPN/PVN IV PRN (19:44)
[2019-08-27] MEDS ORDERED: DEXTROSE 70% IV SCH (20:00)
[2019-08-27] MEDS ORDERED: AMINO ACID 10% IV SCH (20:00)
[2019-08-27] MEDS ORDERED: SMOF TPN IV SCH (20:00)
[2019-08-27] MEDS ORDERED: [UNRECOGNIZED DRUG - OTHER] IV SCH (20:00)
[2019-08-27] MEDS ORDERED: FAT EMUL IV SCH (20:00)
[2019-08-28] MEDS: MORPHINE SULFATE 4 MG/ML, 1ML IVPush PRN ×4 (00:01→19:48)
[2019-08-28] MEDS: HEPARIN 5,000 UNITS/ML, 1ML SQ SCH ×3 (00:12→17:02)
[2019-08-28] MEDS: ONDANSETRON 2MG/ML, 2ML IVPush PRN (00:12)
[2019-08-28] MEDS ORDERED: CEFTRIAXONE PMX 2GM/50ML 50 ML IV SCH (00:30)
[2019-08-28] MEDS: INSULIN REGULAR MEDIUM DOSE QDAY SQ-INSULIN SCH (09:00)
[2019-08-28] MEDS: CHOLESTYRAMINE LIGHT 4GM PACKET PO SCH (09:00)
[2019-08-28] MEDS: SODIUM CHLORIDE FLUSH 10ML SYR IVF SCH ×2 (09:00→19:38)
[2019-08-28] MEDS: MEROPENEM 1 GM in SODIUM CHLORIDE 0.9% 100 ML IV SCH ×2 (11:42→19:35)
[2019-08-28] MEDS: FAT EMUL IV SCH (19:31)
[2019-08-28] MEDS: DEXTROSE 70% IV SCH (19:31)
[2019-08-28] MEDS: [UNRECOGNIZED DRUG - OTHER] IV SCH (19:31)
[2019-08-28] MEDS: AMINO ACID 10% IV SCH (19:31)
[2019-08-28] MEDS: SMOF TPN IV SCH (19:31)
[2019-08-29] MEDS: HEPARIN 5,000 UNITS/ML, 1ML SQ SCH ×3 (00:55→17:30)
[2019-08-29] MEDS: MEROPENEM 1 GM in SODIUM CHLORIDE 0.9% 100 ML IV SCH ×3 (03:35→19:57)
[2019-08-29] MEDS: MORPHINE SULFATE 4 MG/ML, 1ML IVPush PRN ×4 (04:29→22:53)
[2019-08-29] MEDS ORDERED: MIDAZOLAM 1 MG/ML, 5ML ONE (07:58)
[2019-08-29] MEDS ORDERED: NALOXONE 1 MG/ML, 2ML ONE (07:58)
[2019-08-29] MEDS ORDERED: FLUMAZENIL 0.1 MG/1 ML, 5ML ONE (07:58)
[2019-08-29] MEDS ORDERED: FENTANYL PF 100 MCG/2ML ONE (07:58)
[2019-08-29] MEDS: INSULIN REGULAR MEDIUM DOSE QDAY SQ-INSULIN SCH (09:00)
[2019-08-29] MEDS: CHOLESTYRAMINE LIGHT 4GM PACKET PO SCH (09:00)
[2019-08-29] MEDS: SODIUM CHLORIDE FLUSH 10ML SYR IVF SCH ×2 (09:45→19:57)
[2019-08-29] MEDS: [UNRECOGNIZED DRUG - OTHER] IV SCH (19:06)
[2019-08-29] MEDS: SMOF TPN IV SCH (19:06)
[2019-08-29] MEDS: AMINO ACID 10% IV SCH (19:06)
[2019-08-29] MEDS: DEXTROSE 70% IV SCH (19:06)
[2019-08-29] MEDS: FAT EMUL IV SCH (19:06)
[2019-08-30] MEDS: HEPARIN 5,000 UNITS/ML, 1ML SQ SCH ×3 (01:23→16:41)
[2019-08-30] MEDS: MORPHINE SULFATE 4 MG/ML, 1ML IVPush PRN ×3 (03:20→20:00)
[2019-08-30] MEDS: MEROPENEM 1 GM in SODIUM CHLORIDE 0.9% 100 ML IV SCH ×3 (03:33→19:55)
[2019-08-30] MEDS ORDERED: CALCIUM CARBONATE 500 MG TAB.CHEW PO PRN (04:00)
[2019-08-30] MEDS: INSULIN REGULAR MEDIUM DOSE QDAY SQ-INSULIN SCH (09:00)
[2019-08-30 10:10] VITALS: BP 107/68
[2019-08-30] MEDS: CHOLESTYRAMINE LIGHT 4GM PACKET PO SCH (10:12)
[2019-08-30] MEDS: SODIUM CHLORIDE FLUSH 10ML SYR IVF SCH ×2 (10:13→20:04)
[2019-08-30] MEDS: LACTATED RINGERS 1,000 ML IV SCH (10:25)
[2019-08-30] MEDS ORDERED: FENTANYL 25 MCG PATCH TD SCH (11:00)
[2019-08-30] MEDS: ACETAMINOPHEN 325 MG TABLET PO PRN (11:44)
[2019-08-30 12:24] LABS: MEAN CORPUSCULAR HEMOGLOBIN 31.7 pg (27.5-34.5); MEAN CORPUSCULAR HGB CONC 33.4 g/dL (33.2-36.2); MEAN PLATELET VOLUME 9.8 fL (7.4-10.4); PLATELET COUNT 103 x10^3/uL (130-400); RED BLOOD COUNT 2.78 x10^6/uL (4.38-5.82); RED CELL DISTRIBUTION WIDTH 13.1 % (9.4-14.8)
[2019-08-30 12:32] LABS: CHLORIDE 104 mmol/L (98-107)
[2019-08-30 12:52] LABS: ALANINE AMINOTRANSFERASE 35 U/L (12-78); ALBUMIN 2.1 g/dL (3.4-5.0); ALKALINE PHOSPHATASE 292 U/L (45-117); ANION GAP 8 mmol/L (5-15); BILIRUBIN,TOTAL 0.8 mg/dL (0.2-1.0); CALCIUM 8.4 mg/dL (8.5-10.1); CREATININE 1.51 mg/dL (0.7-1.3); TOTAL PROTEIN 6.5 g/dL (6.4-8.2)
[2019-08-30 13:01] LABS: BASOPHILS # (AUTO) 0.01 x10^3/uL (0-0.1); BASOPHILS % (AUTO) 1 % (0-1); EOSINOPHILS # (AUTO) 0.09 x10^3/uL (0-0.4); EOSINOPHILS % (AUTO) 4 % (1-7); LYMPHOCYTES # (AUTO) 0.25 x10^3/uL (1-3.4); LYMPHOCYTES % (AUTO) 11 % (22-44); MD SCAN; MONOCYTES % (AUTO) 8 % (2-9); NEUTROPHILS # (AUTO) 1.87 x10^3/uL (1.8-6.8); NEUTROPHILS % (AUTO) 77 % (42-75)
[2019-08-31] MEDS: MORPHINE SULFATE 4 MG/ML, 1ML IVPush PRN ×6 (00:01→23:18)
[2019-08-31] MEDS: ACETAMINOPHEN 325 MG TABLET PO PRN ×3 (00:13→19:22)
[2019-08-31] MEDS: ONDANSETRON 2MG/ML, 2ML IVPush PRN (00:13)
[2019-08-31] MEDS: HEPARIN 5,000 UNITS/ML, 1ML SQ SCH ×3 (01:30→17:14)
[2019-08-31] MEDS: MEROPENEM 1 GM in SODIUM CHLORIDE 0.9% 100 ML IV SCH ×3 (04:09→22:15)
[2019-08-31] MEDS: LACTATED RINGERS 1,000 ML IV SCH (07:47)
[2019-08-31] MEDS: INSULIN REGULAR MEDIUM DOSE QDAY SQ-INSULIN SCH (08:26)
[2019-08-31] MEDS: SODIUM CHLORIDE FLUSH 10ML SYR IVF SCH ×2 (08:26→21:00)
[2019-08-31] MEDS: CHOLESTYRAMINE LIGHT 4GM PACKET PO SCH (08:26)
[2019-08-31 09:12] VITALS: BP 103/59
[2019-08-31] MEDS ORDERED: FENTANYL 50 MCG PATCH TD SCH (14:00)
[2019-09-01] MEDS: HEPARIN 5,000 UNITS/ML, 1ML SQ SCH ×3 (01:30→17:16)
[2019-09-01] MEDS: MORPHINE SULFATE 4 MG/ML, 1ML IVPush PRN ×3 (03:13→20:58)
[2019-09-01] MEDS: MEROPENEM 1 GM in SODIUM CHLORIDE 0.9% 100 ML IV SCH ×3 (06:16→22:08)
[2019-09-01] MEDS: INSULIN REGULAR MEDIUM DOSE QDAY SQ-INSULIN SCH (09:28)
[2019-09-01] MEDS: CHOLESTYRAMINE LIGHT 4GM PACKET PO SCH (09:28)
[2019-09-01] MEDS: SODIUM CHLORIDE FLUSH 10ML SYR IVF SCH ×2 (09:28→21:00)
[2019-09-02] MEDS: HEPARIN 5,000 UNITS/ML, 1ML SQ SCH ×3 (01:30→17:30)
[2019-09-02] MEDS: MEROPENEM 1 GM in SODIUM CHLORIDE 0.9% 100 ML IV SCH ×3 (05:58→20:59)
[2019-09-02] MEDS: MORPHINE SULFATE 4 MG/ML, 1ML IVPush PRN ×3 (06:07→20:58)
[2019-09-02] MEDS: CHOLESTYRAMINE LIGHT 4GM PACKET PO SCH (09:00)
[2019-09-02] MEDS: INSULIN REGULAR MEDIUM DOSE QDAY SQ-INSULIN SCH (09:00)
[2019-09-02] MEDS: SODIUM CHLORIDE FLUSH 10ML SYR IVF SCH ×2 (09:00→20:57)
[2019-09-03] MEDS: MORPHINE SULFATE 4 MG/ML, 1ML IVPush PRN ×4 (01:06→20:23)
[2019-09-03] MEDS: HEPARIN 5,000 UNITS/ML, 1ML SQ SCH ×3 (01:30→16:52)
[2019-09-03] MEDS: MEROPENEM 1 GM in SODIUM CHLORIDE 0.9% 100 ML IV SCH ×3 (05:27→22:30)
[2019-09-03] MEDS: INSULIN REGULAR MEDIUM DOSE QDAY SQ-INSULIN SCH (09:00)
[2019-09-03] MEDS: SODIUM CHLORIDE FLUSH 10ML SYR IVF SCH ×2 (09:00→20:23)
[2019-09-03] MEDS: CHOLESTYRAMINE LIGHT 4GM PACKET PO SCH (09:00)
[2019-09-04] MEDS: MORPHINE SULFATE 4 MG/ML, 1ML IVPush PRN ×4 (01:12→21:24)
[2019-09-04] MEDS: HEPARIN 5,000 UNITS/ML, 1ML SQ SCH ×3 (01:12→16:12)
[2019-09-04] MEDS: MEROPENEM 1 GM in SODIUM CHLORIDE 0.9% 100 ML IV SCH ×3 (05:37→21:24)
[2019-09-04] MEDS: CHOLESTYRAMINE LIGHT 4GM PACKET PO SCH (09:00)
[2019-09-04] MEDS: SODIUM CHLORIDE FLUSH 10ML SYR IVF SCH ×2 (09:00→21:00)
[2019-09-04] MEDS: INSULIN REGULAR MEDIUM DOSE QDAY SQ-INSULIN SCH (09:00)
[2019-09-04 18:59] VITALS: BP 109/64
[2019-09-05] MEDS: HEPARIN 5,000 UNITS/ML, 1ML SQ SCH ×3 (00:36→16:44)
[2019-09-05] MEDS: MEROPENEM 1 GM in SODIUM CHLORIDE 0.9% 100 ML IV SCH ×3 (05:42→23:07)
[2019-09-05] MEDS: CHOLESTYRAMINE LIGHT 4GM PACKET PO SCH (09:00)
[2019-09-05] MEDS: INSULIN REGULAR MEDIUM DOSE QDAY SQ-INSULIN SCH (09:00)
[2019-09-05] MEDS: MORPHINE SULFATE 4 MG/ML, 1ML IVPush PRN ×2 (11:53→20:47)
[2019-09-05] MEDS: SODIUM CHLORIDE FLUSH 10ML SYR IVF SCH ×2 (15:01→20:50)
[2019-09-06] MEDS: HEPARIN 5,000 UNITS/ML, 1ML SQ SCH ×3 (01:30→15:36)
[2019-09-06] MEDS: MORPHINE SULFATE 4 MG/ML, 1ML IVPush PRN ×3 (03:21→20:22)
[2019-09-06] MEDS: MEROPENEM 1 GM in SODIUM CHLORIDE 0.9% 100 ML IV SCH ×3 (06:21→22:56)
[2019-09-06] MEDS: SODIUM CHLORIDE FLUSH 10ML SYR IVF SCH ×2 (07:14→20:21)
[2019-09-06] MEDS: CHOLESTYRAMINE LIGHT 4GM PACKET PO SCH (07:14)
[2019-09-06] MEDS: INSULIN REGULAR MEDIUM DOSE QDAY SQ-INSULIN SCH (07:15)
[2019-09-07] MEDS: HEPARIN 5,000 UNITS/ML, 1ML SQ SCH ×3 (01:01→15:54)
[2019-09-07] MEDS: MORPHINE SULFATE 4 MG/ML, 1ML IVPush PRN ×4 (04:08→20:06)
[2019-09-07 04:16] VITALS: BP 96/63
[2019-09-07] MEDS: MEROPENEM 1 GM in SODIUM CHLORIDE 0.9% 100 ML IV SCH ×3 (06:37→22:23)
[2019-09-07] MEDS: SODIUM CHLORIDE FLUSH 10ML SYR IVF SCH ×2 (07:26→20:06)
[2019-09-07] MEDS: CHOLESTYRAMINE LIGHT 4GM PACKET PO SCH (07:27)
[2019-09-07] MEDS: INSULIN REGULAR MEDIUM DOSE QDAY SQ-INSULIN SCH (07:28)
[2019-09-08] MEDS: HEPARIN 5,000 UNITS/ML, 1ML SQ SCH ×3 (01:13→16:03)
[2019-09-08] MEDS: MORPHINE SULFATE 4 MG/ML, 1ML IVPush PRN ×4 (03:35→19:29)
[2019-09-08] MEDS: MEROPENEM 1 GM in SODIUM CHLORIDE 0.9% 100 ML IV SCH ×3 (08:03→22:47)
[2019-09-08] MEDS: SODIUM CHLORIDE FLUSH 10ML SYR IVF SCH ×2 (08:07→21:36)
[2019-09-08] MEDS: CHOLESTYRAMINE LIGHT 4GM PACKET PO SCH (08:08)
[2019-09-08] MEDS: INSULIN REGULAR MEDIUM DOSE QDAY SQ-INSULIN SCH (08:08)
[2019-09-09] MEDS: HEPARIN 5,000 UNITS/ML, 1ML SQ SCH ×3 (01:04→16:16)
[2019-09-09] MEDS: MORPHINE SULFATE 4 MG/ML, 1ML IVPush PRN ×5 (03:03→21:32)
[2019-09-09] MEDS: MEROPENEM 1 GM in SODIUM CHLORIDE 0.9% 100 ML IV SCH ×2 (07:01→16:29)
[2019-09-09] MEDS: CHOLESTYRAMINE LIGHT 4GM PACKET PO SCH (07:53)
[2019-09-09] MEDS: INSULIN REGULAR MEDIUM DOSE QDAY SQ-INSULIN SCH (07:53)
[2019-09-09] MEDS: SODIUM CHLORIDE FLUSH 10ML SYR IVF SCH ×2 (07:53→20:53)
[2019-09-09] MEDS ORDERED: LORazepam 2 MG/ML, 1ML IVPush PRN (14:00)
[2019-09-09] MEDS ORDERED: OXYcodone 5 MG/5 ML ORAL.SOL UDC PO PRN (14:30)
[2019-09-10] MEDS: MEROPENEM 1 GM in SODIUM CHLORIDE 0.9% 100 ML IV SCH ×3 (00:05→16:30)
[2019-09-10] MEDS: HEPARIN 5,000 UNITS/ML, 1ML SQ SCH ×3 (00:25→16:49)
[2019-09-10] MEDS: MORPHINE SULFATE 4 MG/ML, 1ML IVPush PRN ×4 (03:19→19:05)
[2019-09-10 05:27] LABS: BASOPHILS # (AUTO) 0.03 x10^3/uL (0-0.1); BASOPHILS % (AUTO) 1 % (0-1); EOSINOPHILS # (AUTO) 0.59 x10^3/uL (0-0.4); EOSINOPHILS % (AUTO) 14 % (1-7); LYMPHOCYTES # (AUTO) 1.27 x10^3/uL (1-3.4); LYMPHOCYTES % (AUTO) 30 % (22-44); MD NO; MEAN CORPUSCULAR HEMOGLOBIN 31.1 pg (27.5-34.5); MEAN CORPUSCULAR HGB CONC 33.1 g/dL (33.2-36.2); MEAN CORPUSCULAR VOLUME 93.9 fL (81-97); MEAN PLATELET VOLUME 8.8 fL (7.4-10.4); MONOCYTES # (AUTO) 0.28 x10^3/uL (0.2-0.8); MONOCYTES % (AUTO) 7 % (2-9); NEUTROPHILS # (AUTO) 2.02 x10^3/uL (1.8-6.8); NEUTROPHILS % (AUTO) 48 % (42-75); PLATELET COUNT 180 x10^3/uL (130-400); RED BLOOD COUNT 3.73 x10^6/uL (4.38-5.82); RED CELL DISTRIBUTION WIDTH 13.6 % (9.4-14.8)
[2019-09-10 05:34] LABS: ALBUMIN 2.8 g/dL (3.4-5.0); ANION GAP 8 mmol/L (5-15); CALCIUM 9.3 mg/dL (8.5-10.1); CHLORIDE 103 mmol/L (98-107)
[2019-09-10 05:37] LABS: ALANINE AMINOTRANSFERASE 61 U/L (12-78); ALKALINE PHOSPHATASE 265 U/L (45-117); BILIRUBIN,TOTAL 0.9 mg/dL (0.2-1.0); CREATININE 1.22 mg/dL (0.7-1.3); TOTAL PROTEIN 7.5 g/dL (6.4-8.2)
[2019-09-10] MEDS: INSULIN REGULAR MEDIUM DOSE QDAY SQ-INSULIN SCH (07:14)
[2019-09-10] MEDS: CHOLESTYRAMINE LIGHT 4GM PACKET PO SCH (07:14)
[2019-09-10] MEDS: SODIUM CHLORIDE FLUSH 10ML SYR IVF SCH (07:15)
[2019-09-10] MEDS ORDERED: LIDOCAINE 1%, 10ML ONE (13:32)
[2019-09-10] MEDS ORDERED: OXYC5SOL8 PO (14:30)
[2019-09-10] MEDS ORDERED: FLUMAZENIL 0.1 MG/1 ML, 5ML ONE (14:52)
[2019-09-10] MEDS ORDERED: NALOXONE 1 MG/ML, 2ML ONE (14:52)
[2019-09-10] MEDS ORDERED: MIDAZOLAM 1 MG/ML, 5ML ONE (14:52)
[2019-09-10] MEDS ORDERED: FENTANYL PF 100 MCG/2ML ONE ×2 (14:52)
== END 2019-09-10 19:00 | disposition home or self-care (01) | DRG 206 ==
LOC: ED 22:26 → EDIP 23:28 → 4WST 08-01 00:26 → 3N 08-08 17:32
PROVIDERS: ADMIT Internal Medicine; ATTEND Family Medicine
PROC: 0JH63XZ Insertion of Tunneled Vascular Access Device into Chest Subcutaneous Tissue and Fascia, Percutaneous Approach (ICD-10-PCS; principal; 2019-08-04)
PROC: 02H633Z Insertion of Infusion Device into Right Atrium, Percutaneous Approach (ICD-10-PCS; 2019-08-04)
PROC: B5181ZA Fluoroscopy of Superior Vena Cava using Low Osmolar Contrast, Guidance (ICD-10-PCS; 2019-08-04)
PROC: B548ZZA Ultrasonography of Superior Vena Cava, Guidance (ICD-10-PCS; 2019-08-04)
PROC: 0JH63XZ Insertion of Tunneled Vascular Access Device into Chest Subcutaneous Tissue and Fascia, Percutaneous Approach (ICD-10-PCS; 2019-09-10)
PROC: 02HV33Z Insertion of Infusion Device into Superior Vena Cava, Percutaneous Approach (ICD-10-PCS; 2019-09-10)
PROC: B5181ZA Fluoroscopy of Superior Vena Cava using Low Osmolar Contrast, Guidance (ICD-10-PCS; 2019-09-10)
PROC: B548ZZA Ultrasonography of Superior Vena Cava, Guidance (ICD-10-PCS; 2019-09-10)
DX: T82.7XXA Infection and inflammatory reaction due to other cardiac and vascular devices, implants and grafts, initial encounter (principal); N17.0 Acute kidney failure with tubular necrosis; J96.90 Respiratory failure, unspecified, unspecified whether with hypoxia or hypercapnia; E43 Unspecified severe protein-calorie malnutrition; D61.818 Other pancytopenia; K63.2 Fistula of intestine; K85.00 Idiopathic acute pancreatitis without necrosis or infection; B95.4 Other streptococcus as the cause of diseases classified elsewhere; E11.22 Type 2 diabetes mellitus with diabetic chronic kidney disease; G82.20 Paraplegia, unspecified; E86.0 Dehydration; Z68.36 Body mass index [BMI] 36.0-36.9, adult; Z88.8 Allergy status to other drugs, medicaments and biological substances; E66.9 Obesity, unspecified; E87.6 Hypokalemia; F17.210 Nicotine dependence, cigarettes, uncomplicated; F32.9 Major depressive disorder, single episode, unspecified; G89.29 Other chronic pain; J98.11 Atelectasis; M87.9 Osteonecrosis, unspecified; N18.2 Chronic kidney disease, stage 2 (mild); N39.0 Urinary tract infection, site not specified; R62.7 Adult failure to thrive; Y84.8 Other medical procedures as the cause of abnormal reaction of the patient, or of later complication, without mention of misadventure at the time of the procedure; Z53.20 Procedure and treatment not carried out because of patient's decision for unspecified reasons; Z83.3 Family history of diabetes mellitus; Z85.830 Personal history of malignant neoplasm of bone; Z86.19 Personal history of other infectious and parasitic diseases; Z89.511 Acquired absence of right leg below knee; Z89.512 Acquired absence of left leg below knee; Z89.611 Acquired absence of right leg above knee; Z89.612 Acquired absence of left leg above knee; Z91.19 Patient's noncompliance with other medical treatment and regimen; Z93.3 Colostomy status; L03.311 Cellulitis of abdominal wall; Y92.89 Other specified places as the place of occurrence of the external cause; E87.2 Acidosis; J11.1 Influenza due to unidentified influenza virus with other respiratory manifestations
CPT/HCPCS: 36415; 36558; 36589; 71045; 72195; 74176; 76705; 76937; 77001; 80048; 80053; 81001; 83605; 83690; 83735; 84100; 84134; 84145; 84478; 85025; 85651; 86140; 87040; 87070; 87077; 87081; 87086; 87186; 87400; 87880; 99156; 99157; G0378; J0610; J0696; J0878; J2020; J2185; J2250; J2405; J3010; J3370; J3475; J3480; C1750; C1751; J2270; J2310; J3420; J3490; J7040; J7050; J7120